=== PATIENT | male | born 1935 | race Caucasian/White ===

== ENCOUNTER 2017-01-05 01:05 | Inpatient (IN) | payer OTHER ==
--- NOTE | 2017-01-05 01:36 | DR.COUGH ---
HPI - Time Seen Time seen: 01:25 - PCP Primary Care Physician: BRITTNEY - HPI Comment HPI Comment: Patient presented to the ED this AM because he is spitting up blood when he coughs. He states that he has not smoked in 50 years. He has a history of COPD. He was seen by his primary care physician earlier today. - Complaint Chief Complaint:: COUGHING UP BLOOD - Source History Provided: Patient, Family Member - Mode of Arrival Mode of Arrival: EMS - Timing Onset of Chief Complaint: 01/05/17 PMH - PMH Past Medical History: Yes Past Medical History: Angina, Arthritis, CHF, COPD, Coronary Artery Disease, Dyslipidemia, Hypertension, Sleep Apnea Past Surgical History: Yes Surgical History: Abdominal Surgery, Angioplasty/Stents, CABG/Valve Surgery, Cholecystectomy, Other Past Surgical History Comment: PACEMAKER, HERNIA REPAIR, PROSTATE SURGERY - Family History History of Family Medical Conditions: Yes Family Medical History: PR, Sudden Cardiac , Hypertension - Social History Does patient currently use any type of tobacco product: No Have you used tobacco products in the last 12 months: No Type of Tobacco Use: None Does any household member use tobacco: No Alcohol Use: None Do you use any recreational Drugs:: No Lives With: Spouse Lives Where: Home - infectious screening In the last 2 months have you had wt loss of >10#?: NO Have you had fever, night sweats or hemotysis?: No Have you traveled outside the country in the last 6 months?: No Isolation: Standard ROS - Review of Systems Constitutional: No Symptoms Reported, Chills Eyes: No Symptoms Reported ENTM: No Symptoms Reported Respiratoy: See HPI, Hemoptysis Cardiovascular: No Symptoms Reported Gastrointestinal/Abdominal: No Symptoms Reported Genitourinary: No Symptoms Reported Neurological: No Symptoms Reported Musculoskeletal: No Symptoms Reported Integumentary: No Symptoms Reported Hematologic/Lymphatic: No Symptoms Reported Endocrine: No Symptoms Reported Psychiatric: No Symptoms Reported All Other Systems: Reviewed and Negative PE - Vitals Vitals: Temperature 102.7 F Pulse Rate 88 Respiratory Rate 22 Blood Pressure [Left Arm] 131/69 Blood Pressure 152/67 O2 Sat by Pulse Oximetry 93 - General Limitations: No Limitations General Appearance: Alert, In No Apparent Distress - Head Head Exam: Normal Inspection, Atraumatic - Eyes Eye exam: Normal Appearance, PERRL, EOMI - ENT ENT Exam: Normal Exam External Ear Exam: Normal External Inspection TM/Canal Exam: Bilateral Normal Nose Exam: Normal Nose Exam Nasal Speculum Exam: Bilateral Normal Mouth Exam: Normal Inspection Teeth Exam: Normal Inspection, Dental Caries - Neck Neck Exam: Normal Inspection - Chest Chest Inspection: Normal Inspection - Respiratory Respiratory Exam: Normal Lung Sounds Bilat Respiratory Exam: Bilateral Wheezing, Bilateral Decreased Breath Sounds - Cardiovascular Cardiovascular Exam: Regular Rate, Normal Rhythm - Abdominal Exam Abdominal Exam: Normal Inspection Abdominal Tenderness: negative: RUQ, RLQ, LUQ, LLQ, Epigastrium, Suprapubic, Diffuse, Mild, Moderate, Severe, Other - Extremities Extremities Exam: Normal Inspection - Back Back Exam: Normal Inspection - Neurologic Neurological Exam: Alert, Oriented X3, CN II-XII Intact - Psychiatric Psychiatric Exam: Normal Affect - Skin Skin Exam: Warm, Dry Course - Reevaluation 1st: Improved - Consultation Called: 03:05 (Admit for further evaluation and treatment) ROR - Labs Reviewed Result Diagrams: 01/05/17 01:30 01/05/17 01:30 Laboratory: 01/05/17 02:00 Sputum - Expectorated Sputum - Final WBC 22.2 X10^3/uL (3.6-10.0) H* 01/05/17 01:30 RBC 4.88 X10^6/uL (4.7-6.0) 01/05/17 01:30 Hgb 14.8 g/dL (13.5-18.0) 01/05/17 01:30 Hct 44.8 % (42.0-54.0) 01/05/17 01:30 MCV 91.8 fL (80.0-100.0) 01/05/17 01:30 MCH 30.3 pg (27.0-34.0) 01/05/17 01:30 MCHC 33.0 g/dL (33.0-35.0) 01/05/17 01:30 RDW 14.4 % (11.6-16.5) 01/05/17 01:30 Plt Count 140 X10^3/uL (150.0-450.0) L 01/05/17 01:30 Plt Count Comment Adequate (ADEQUATE) 01/05/17 01:30 MPV 10.7 fL (7.4-11.0) 01/05/17 01:30 Neut % 91.5 % (42.0-75.0) H 01/05/17 01:30 Lymph % 1.0 % (21.0-51.0) L 01/05/17 01:30 [place] % 7.5 % (0.0-13.0) 01/05/17 01:30 Eos % 0.0 % (0.9-2.9) L 01/05/17 01:30 Baso % 0 % (0.2-1.0) L 01/05/17 01:30 Neut # 20.3 x10^3/uL (2.2-4.8) H 01/05/17 01:30 Lymph # 0.2 X10^3/uL (1.3-2.9) L 01/05/17 01:30 [place] # 1.7 x10^3/uL (0.3-0.8) H 01/05/17 01:30 Eos # 0.0 x10^3/uL (0.0-0.2) 01/05/17 01:30 Baso # 0.0 X10^3/uL (0.0-0.1) 01/05/17 01:30 Absolute Nucleated RBC 0.0 /100WBC 01/05/17 01:30 Total Counted 100 01/05/17 01:30 Neutrophils % (Manual) 87 % (39-76) H 01/05/17 01:30 Band Neutrophils % 6 % (0-10) 01/05/17 01:30 Lymphocytes % (Manual) 2 % (13-43) L 01/05/17 01:30 Monocytes % (Manual) 5 % (4-9) 01/05/17 01:30 Plt Morphology Comment Normal (NORMAL) 01/05/17 01:30 RBC Morphology Normal (NORMAL) 01/05/17 01:30 INR Target Range - 01/05/17 01:30 INR 1.61 (0.8-1.3) H 01/05/17 01:30 PTT 31.5 SECONDS (22.9-36.5) 01/05/17 01:30 PTT Comment - 01/05/17 01:30 D-Dimer 355 ng/mL (0-400) 01/05/17 01:30 Sodium 146 mmol/L (136-145) H 01/05/17 01:30 Corrected Sodium 147 mmol/L (136-145) H 01/05/17 01:30 Potassium 3.5 mmol/L (3.5-5.1) 01/05/17 01:30 Chloride 110 mmol/L (98-107) H 01/05/17 01:30 Carbon Dioxide 26.5 mmol/L (21-32) 01/05/17 01:30 BUN 37 mg/dL (7-18) H 01/05/17 01:30 Creatinine 1.44 mg/dL (0.70-1.30) H 01/05/17 01:30 Est GFR (MDRD) Af Amer > 60 (>60) 01/05/17 01:30 Est GFR (MDRD) Non-Af 50 (>60) L 01/05/17 01:30 Glucose 128 mg/dL (65-99) H 01/05/17 01:30 Calcium 8.8 mg/dL (8.5-10.1) 01/05/17 01:30 Corrected Calcium TNP 01/05/17 01:30 Total Bilirubin 0.70 mg/dL (0.2-1.0) 01/05/17 01:30 AST 77 Units/L (15-37) H 01/05/17 01:30 ALT 77 Units/L (12-78) 01/05/17 01:30 Alkaline Phosphatase 121 Units/L (46-116) H 01/05/17 01:30 Total Protein 6.9 g/dL (6.4-8.2) 01/05/17 01:30 Albumin 3.4 g/dL (3.4-5.0) 01/05/17 01:30 Globulin 3.5 g/dL (2.5-4.5) 01/05/17 01:30 Albumin/Globulin Ratio 1.0 Ratio (1.1-2.1) L 01/05/17 01:30 Specimen Type Clean catch urine 01/05/17 01:48 Urine Color Yellow (YELLOW) 01/05/17 01:48 Urine Appearance Hazy (CLEAR) 01/05/17 01:48 Urine pH 5.0 (5.0 - 8.0) 01/05/17 01:48 Ur Specific [place] 1.025 (1.000-1.030) 01/05/17 01:48 Urine Protein 2+ (NEGATIVE) 01/05/17 01:48 Urine Glucose (UA) Negative (NEGATIVE) 01/05/17 01:48 Urine Ketones Negative (NEGATIVE) 01/05/17 01:48 Urine Occult Blood 2+ (NEGATIVE) 01/05/17 01:48 Urine Nitrite Negative (NEGATIVE) 01/05/17 01:48 Urine Bilirubin 1+ (NEGATIVE) 01/05/17 01:48 Urine Urobilinogen 2+ (NORMAL) 01/05/17 01:48 Ur Leukocyte Esterase 1+ (NEGATIVE) 01/05/17 01:48 Urine RBC 0-3 /HPF (NEGATIVE) 01/05/17 01:48 Urine WBC 5-10 /HPF (NEGATIVE) 01/05/17 01:48 Ur Squamous Epith Cells Rare /HPF (NEGATIVE) 01/05/17 01:48 Urine Bacteria 1+ /HPF (NEGATIVE) 01/05/17 01:48 Urine Mucus Few /HPF (NEGATIVE) 01/05/17 01:48 Ur Culture Indicated? Yes/culture set up 01/05/17 01:48 - XRAY XRAY Interpreted by: Radiologist (Chronic lung parenchymal changes are present bilaterally. The lung volumes are increased and there is flattening of the hemidiaphragms. There is consolidation throughout the medial aspect of the right lower lobe. The cardiac silhouette is mildly enlarged. Sternotomy wires and left sided pacemaker are present. The mediastinum is normal. The regional skeleton is intact. No evidence of a pleural effusion. Impression: Chronic lung parenchymal changes are seen bilaterally and the lung volumes are increased. consistent with COPD. Findings consistend with right lower lobe pneumonia.) - Diagnosis Discharge Problem: Hemoptysis COPD (chronic obstructive pulmonary disease) Qualifiers: COPD type: COPD with acute exacerbation Qualified Code(s): J44.1 - Chronic obstructive pulmonary disease with (acute) exacerbation - Discharge Plan Condition: Stable - Follow ups/Referrals Follow ups/Referrals: WINNIE MOORE [Primary Care Provider] - 3 days - Instructions
[2017-01-05] MEDS ORDERED: DUONEB 0.5 MG/3 MG NEB ONE (01:49)
[2017-01-05] MEDS ORDERED: DUONEB 0.5 MG/3 MG ONE (01:53)
[2017-01-05 01:54] LABS: MEAN CORPUSCULAR HEMOGLOBIN 30.3 pg (27.0-34.0); MONOCYTES # (AUTO) 1.7 x10^3/uL (0.3-0.8)
[2017-01-05 01:58] LABS: BASOPHILS % (AUTO) 0 % (0.2-1.0); HEMATOCRIT 44.8 % (42.0-54.0); HEMOGLOBIN 14.8 g/dL (13.5-18.0); LYMPHOCYTES # (AUTO) 0.2 X10^3/uL (1.3-2.9); MEAN CORPUSCULAR VOLUME 91.8 fL (80.0-100.0); MEAN PLATELET VOLUME 10.7 fL (7.4-11.0); MONOCYTES % (AUTO) 7.5 % (0.0-13.0); NEUTROPHILS # (AUTO) 20.3 x10^3/uL (2.2-4.8); NEUTROPHILS % (AUTO) 91.5 % (42.0-75.0); PLATELET COUNT 140 X10^3/uL (150.0-450.0); RED BLOOD COUNT 4.88 X10^6/uL (4.7-6.0); RED CELL DISTRIBUTION WIDTH 14.4 % (11.6-16.5)
--- NOTE | 2017-01-05 02:00 | RAD ---
EXAM: Chest X-ray INDICATION: Cough COMPARISION: Prior exam from September 15, 2014 TECHNIQUE: PA and Lat, 2 view FINDINGS: Chronic lung parenchymal changes are present bilaterally. The lung volumes are increased, and there is flattening of the hemidiaphragms . There is consolidation throughout the medial aspect of the rig ht lower lobe. The cardiac silhouette is mildly enlarged. Sternotomy wires and left-sided pacemaker are present. The mediastinum is normal. The regional skeleton is intact. No evidence of a pleural effusion. IMPRESSION: Chronic lung parenchymal changes are seen bilaterally and the lung volumes are increased, consistent with COPD. Findings consistent with right lower lobe pneumonia. Reported By:
[2017-01-05 02:01] LABS: ALANINE AMINOTRANSFERASE 77 Units/L (12-78); ALBUMIN 3.4 g/dL (3.4-5.0); ALKALINE PHOSPHATASE 121 Units/L (46-116); ASPARTATE AMINO TRANSFERASE 77 Units/L (15-37); BLOOD UREA NITROGEN 37 mg/dL (7-18); CALCIUM 8.8 mg/dL (8.5-10.1); CARBON DIOXIDE 26.5 mmol/L (21-32); CHLORIDE 110 mmol/L (98-107); COR NA(FOR HYPERGLY) 147 mmol/L (136-145); CREATININE 1.44 mg/dL (0.70-1.30); GLUCOSE 128 mg/dL (65-99); SODIUM 146 mmol/L (136-145); TOTAL PROTEIN 6.9 g/dL (6.4-8.2); WHITE BLOOD COUNT 22.2 X10^3/uL (3.6-10.0); eGFR BLACK RACES > 60 (>60); eGFR NON BLACK RACES 50 (>60)
[2017-01-05 02:09] LABS: BAND NEUTROPHILS % 6 % (0-10); PLATELET MORPHOLOGY COMMENT NORMAL (NORMAL)
[2017-01-05 02:17] LABS: BILIRUBIN,URINE 1+ (NEGATIVE); BLOOD/HEMOGLOBIN,URINE 2+ (NEGATIVE); GLUCOSE, URINE NEGATIVE (NEGATIVE); KETONES,URINE NEGATIVE (NEGATIVE); LEUKOCYTE ESTERASE ,URINE 1+ (NEGATIVE); NITRITES,URINE NEGATIVE (NEGATIVE); PROTEIN,URINE 2+ (NEGATIVE); UROBILINOGEN,URINE 2+ (NORMAL)
[2017-01-05 02:34] LABS: APPEARANCE,URINE HAZY (CLEAR); BACTERIA,URINE 1+ /HPF (NEGATIVE); COLOR,URINE YELLOW (YELLOW); MUCUS,URINE FEW /HPF (NEGATIVE); RBC,URINE 0-3 /HPF (NEGATIVE); SQUAMOUS EPITHELIAL CELL,UR RARE /HPF (NEGATIVE)
[2017-01-05] MEDS ORDERED: GENTAMICIN INJ 80 MG in NS 100 ML IV 100 ML IV ONE (03:38)
[2017-01-05] MEDS ORDERED: ROCEPHIN VIAL 1 GM ONE (03:42)
[2017-01-05] MEDS ORDERED: NS 50 ML IV + SPIKE MINIBAG* 0 ML IV ONE (03:42)
[2017-01-05] MEDS ORDERED: NS 1/2 1000 ML IV 1,000 ML IV ONE ×2 (03:42→16:47)
[2017-01-05] MEDS: ROCEPHIN VIAL 1 GM 1 GM in NS 50 ML IV + SPIKE MINIBAG* 50 ML IV SCH ×2 (03:52→09:04)
[2017-01-05] MEDS: NS 1/2 1000 ML IV 1,000 ML IV SCH ×2 (04:03→17:01)
[2017-01-05] MEDS ORDERED: GENTAMICIN INJ ONE (04:17)
[2017-01-05] MEDS ORDERED: NS 100 ML IV 100 ML IV ONE (04:17)
[2017-01-05] MEDS: DUONEB 0.5 MG/3 MG NEB SCH ×5 (05:02→20:36)
[2017-01-05 05:14] VITALS: BMI 25.8
[2017-01-05] MEDS: VIBRAMYCIN 100 MG in NS 100 ML IV + SPIKE MINIBAG* 100 ML IV SCH ×2 (09:49→20:27)
[2017-01-05] MEDS: ROBITUSSIN DM PO SCH ×4 (09:50→20:28)
[2017-01-06] MEDS: DUONEB 0.5 MG/3 MG NEB SCH ×6 (00:59→20:27)
[2017-01-06 05:37] LABS: BASOPHILS # (AUTO) 0.1 X10^3/uL (0.0-0.1); BASOPHILS % (AUTO) 0.3 % (0.2-1.0); EOSINOPHILS % (AUTO) 0.1 % (0.9-2.9); HEMATOCRIT 38.6 % (42.0-54.0); HEMOGLOBIN 12.6 g/dL (13.5-18.0); LYMPHOCYTES # (AUTO) 1.1 X10^3/uL (1.3-2.9); LYMPHOCYTES % (AUTO) 6.4 % (21.0-51.0); MEAN CORPUSCULAR HEMOGLOBIN 30.3 pg (27.0-34.0); MEAN CORPUSCULAR HGB CONC 32.8 g/dL (33.0-35.0); MEAN CORPUSCULAR VOLUME 92.4 fL (80.0-100.0); MEAN PLATELET VOLUME 11.2 fL (7.4-11.0); MONOCYTES # (AUTO) 1.9 x10^3/uL (0.3-0.8); MONOCYTES % (AUTO) 10.9 % (0.0-13.0); NEUTROPHILS # (AUTO) 14.4 x10^3/uL (2.2-4.8); NEUTROPHILS % (AUTO) 82.3 % (42.0-75.0); PLATELET COUNT 105 X10^3/uL (150.0-450.0); RED BLOOD COUNT 4.17 X10^6/uL (4.7-6.0); RED CELL DISTRIBUTION WIDTH 14.6 % (11.6-16.5); WHITE BLOOD COUNT 17.5 X10^3/uL (3.6-10.0)
[2017-01-06 05:46] LABS: ALANINE AMINOTRANSFERASE 66 Units/L (12-78); ALBUMIN 2.7 g/dL (3.4-5.0); ALKALINE PHOSPHATASE 86 Units/L (46-116); ASPARTATE AMINO TRANSFERASE 59 Units/L (15-37); BLOOD UREA NITROGEN 26 mg/dL (7-18); CALCIUM 8.2 mg/dL (8.5-10.1); CARBON DIOXIDE 25.7 mmol/L (21-32); CHLORIDE 107 mmol/L (98-107); COR CA(FOR HYPOALB) 9.2 mg/dL (8.5-10.1); COR NA(FOR HYPERGLY) 142 mmol/L (136-145); CREATININE 1.16 mg/dL (0.70-1.30); GLUCOSE 131 mg/dL (65-99); SODIUM 141 mmol/L (136-145); TOTAL PROTEIN 5.9 g/dL (6.4-8.2); eGFR BLACK RACES > 60 (>60); eGFR NON BLACK RACES > 60 (>60)
[2017-01-06] MEDS ORDERED: NS 1/2 1000 ML IV 1,000 ML IV ONE ×2 (06:49→15:40)
[2017-01-06] MEDS: VIBRAMYCIN 100 MG in NS 100 ML IV + SPIKE MINIBAG* 100 ML IV SCH ×2 (09:05→21:22)
[2017-01-06] MEDS: ROBITUSSIN DM PO SCH ×4 (09:05→21:22)
[2017-01-06] MEDS: ROCEPHIN VIAL 1 GM 1 GM in NS 50 ML IV + SPIKE MINIBAG* 50 ML IV SCH (09:05)
[2017-01-06] MEDS: ZOFRAN INJ 4 MG VIAL IVP PRN (12:00)
[2017-01-06] MEDS ORDERED: [UNRECOGNIZED DRUG - OTHER] PO SCH (12:30)
[2017-01-06] MEDS: ELIQUIS PO SCH (15:44)
[2017-01-06] MEDS: LOPRESSOR TAB 25 MG PO SCH ×2 (15:45→21:22)
[2017-01-06] MEDS: CALAN SR 180 MG PO SCH (15:46)
[2017-01-06] MEDS: NS 1/2 1000 ML IV 1,000 ML IV SCH ×2 (15:47→21:27)
[2017-01-06] MEDS: LANOXIN PO SCH (16:43)
[2017-01-06] MEDS: LOTENSIN TAB 10 MG PO SCH (21:22)
[2017-01-06] MEDS: ZOCOR TAB 10 MG PO SCH (21:22)
[2017-01-07] MEDS: TUSSIONEX PENNKINETIC SUSP PO PRN ×2 (00:41→21:48)
[2017-01-07] MEDS: DUONEB 0.5 MG/3 MG NEB SCH ×6 (01:32→20:52)
[2017-01-07] MEDS: VIBRAMYCIN 100 MG in NS 100 ML IV + SPIKE MINIBAG* 100 ML IV SCH ×2 (08:53→21:48)
[2017-01-07] MEDS: ROCEPHIN VIAL 1 GM 1 GM in NS 50 ML IV + SPIKE MINIBAG* 50 ML IV SCH (08:54)
[2017-01-07] MEDS: LOPRESSOR TAB 25 MG PO SCH ×2 (08:55→21:47)
[2017-01-07] MEDS: ROBITUSSIN DM PO SCH ×4 (08:55→21:48)
[2017-01-07] MEDS: LANOXIN PO SCH (08:55)
[2017-01-07] MEDS: CALAN SR 180 MG PO SCH (08:58)
[2017-01-07] MEDS: ELIQUIS PO SCH (08:58)
[2017-01-07] MEDS: LOTENSIN TAB 10 MG PO SCH ×2 (08:58→21:47)
[2017-01-07] MEDS ORDERED: NS 100 ML IV 100 ML IV ONE (14:24)
[2017-01-07] MEDS ORDERED: NS 1/2 1000 ML IV 1,000 ML IV ONE (15:22)
[2017-01-07] MEDS: NS 1/2 1000 ML IV 1,000 ML IV SCH (15:26)
--- NOTE | 2017-01-07 15:47 | CT ---
History: Shortness of breath and cough and hemoptysis Study: CT chest with IV contrast. Sagittal and coronal reformations were provided. Findings: There are small bilateral pleural effusions. There is a small patchy infiltrate in the rig ht middle lobe and patchy infiltrates in the lower lobes, left slightly more prominent than the righ t. There is a mild infiltrate in the lingula is well. There are prominent middle mediastinal lymph n odes. No pulmonary embolus is suggested. The visualized upper abdomen is unremarkable status post ch olecystectomy. Impression: Bilateral lower lobe and middle and lingular patchy pneumonitis with small pleural effusions Reported By:
[2017-01-07] MEDS: ZOCOR TAB 10 MG PO SCH (21:48)
[2017-01-08] MEDS: DUONEB 0.5 MG/3 MG NEB SCH ×7 (00:54→20:32)
[2017-01-08] MEDS: NS 1/2 1000 ML IV 1,000 ML IV SCH ×3 (02:15→17:10)
[2017-01-08] MEDS ORDERED: NS 1/2 1000 ML IV 1,000 ML IV ONE ×2 (03:30→13:36)
[2017-01-08 05:26] LABS: BASOPHILS # (AUTO) 0.1 X10^3/uL (0.0-0.1); BASOPHILS % (AUTO) 0.5 % (0.2-1.0); EOSINOPHILS % (AUTO) 0.3 % (0.9-2.9); HEMATOCRIT 37.7 % (42.0-54.0); HEMOGLOBIN 12.4 g/dL (13.5-18.0); LYMPHOCYTES # (AUTO) 0.8 X10^3/uL (1.3-2.9); LYMPHOCYTES % (AUTO) 5.4 % (21.0-51.0); MEAN CORPUSCULAR HEMOGLOBIN 30.5 pg (27.0-34.0); MEAN CORPUSCULAR HGB CONC 32.9 g/dL (33.0-35.0); MEAN CORPUSCULAR VOLUME 92.6 fL (80.0-100.0); MEAN PLATELET VOLUME 11.4 fL (7.4-11.0); MONOCYTES # (AUTO) 1.9 x10^3/uL (0.3-0.8); MONOCYTES % (AUTO) 13.4 % (0.0-13.0); NEUTROPHILS # (AUTO) 11.2 x10^3/uL (2.2-4.8); NEUTROPHILS % (AUTO) 80.4 % (42.0-75.0); PLATELET COUNT 115 X10^3/uL (150.0-450.0); RED BLOOD COUNT 4.07 X10^6/uL (4.7-6.0); RED CELL DISTRIBUTION WIDTH 14.7 % (11.6-16.5)
[2017-01-08 05:37] LABS: ALANINE AMINOTRANSFERASE 139 Units/L (12-78); ALBUMIN 2.5 g/dL (3.4-5.0); ALKALINE PHOSPHATASE 121 Units/L (46-116); ASPARTATE AMINO TRANSFERASE 98 Units/L (15-37); BLOOD UREA NITROGEN 31 mg/dL (7-18); CALCIUM 8.3 mg/dL (8.5-10.1); CARBON DIOXIDE 25.4 mmol/L (21-32); CHLORIDE 105 mmol/L (98-107); COR CA(FOR HYPOALB) 9.5 mg/dL (8.5-10.1); COR NA(FOR HYPERGLY) 140 mmol/L (136-145); CREATININE 1.44 mg/dL (0.70-1.30); DIGOXIN 0.98 ng/mL (0.9-2); GLUCOSE 120 mg/dL (65-99); SODIUM 140 mmol/L (136-145); TOTAL PROTEIN 6.1 g/dL (6.4-8.2); eGFR BLACK RACES > 60 (>60); eGFR NON BLACK RACES 50 (>60)
--- NOTE | 2017-01-08 08:59 | PCM.PROG ---
Progress Note - Progress Note for Day of Date: 01/07/17 - Subjective Subjective: C/C/C, COUGHING UP BLOOD. 81WM ADMITTED ON SATURDAY NIGHT WITH DIAGNOSIS OF RIGHT LL PNEUMONIA. PLAN TO CT CHEST THIS AM, CONTINUE IV HYDRATION AND RESP THERAPY, REPEAT AM LABS - Past Medical Family Social History Past Med/Fam/Surg Hx: No changes since H&P Allergies: Allergies No Known Drug Allergy Allergy (Unverified 07/28/15 17:55) - Review of Systems ROS: No change since H&P - Vital Signs and I&O's Vital Signs: Temperature 97.2 F Pulse Rate [Right Brachial] 70 Pulse Rate [Left Radial] 74 Pulse Rate 78 Respiratory Rate 20 Blood Pressure [Right Arm] 124/59 Blood Pressure [Left Arm] 148/66 Blood Pressure 152/67 O2 Sat by Pulse Oximetry 98 Intake and Output: Intake & Output 01/05/17 01/06/17 01/07/17 01/08/17 11:59 11:59 11:59 11:59 Intake Total 620 2350 3218 2650 Output Total 350 225 875 Balance 620 3794 2999 1779 - Physical Exam Oriented: Normal Eyes: Normal Ear: Normal Nose: Normal Throat: Normal Respiratory: Wheezes, Rhonchi Cardiovascular: Normal. negative: Edema : Normal Auscultation: Bowel Sounds: Normal Palpation: Normal Tenderness: Normal Skin: Normal Musculoskeletal: Back:Lumbar Psychiatric: Normal Mood Description: Calm Speech Pattern: Clear, Appropriate - Laboratory and Diagnostics Result Diagrams: 01/08/17 04:10 01/08/17 04:10 Labs: 01/05/17 03:39 Blood Blood Culture - Preliminary Laboratory WBC 14.0 X10^3/uL (3.6-10.0) H 01/08/17 04:10 RBC 4.07 X10^6/uL (4.7-6.0) L 01/08/17 04:10 Hgb 12.4 g/dL (13.5-18.0) L 01/08/17 04:10 Hct 37.7 % (42.0-54.0) L 01/08/17 04:10 MCV 92.6 fL (80.0-100.0) 01/08/17 04:10 MCH 30.5 pg (27.0-34.0) 01/08/17 04:10 MCHC 32.9 g/dL (33.0-35.0) L 01/08/17 04:10 RDW 14.7 % (11.6-16.5) 01/08/17 04:10 Plt Count 115 X10^3/uL (150.0-450.0) L 01/08/17 04:10 Plt Count Comment Adequate (ADEQUATE) 01/05/17 01:30 MPV 11.4 fL (7.4-11.0) H 01/08/17 04:10 Neut % 80.4 % (42.0-75.0) H 01/08/17 04:10 Lymph % 5.4 % (21.0-51.0) L 01/08/17 04:10 [place] % 13.4 % (0.0-13.0) H 01/08/17 04:10 Eos % 0.3 % (0.9-2.9) L 01/08/17 04:10 Baso % 0.5 % (0.2-1.0) 01/08/17 04:10 Neut # 11.2 x10^3/uL (2.2-4.8) H 01/08/17 04:10 Lymph # 0.8 X10^3/uL (1.3-2.9) L 01/08/17 04:10 [place] # 1.9 x10^3/uL (0.3-0.8) H 01/08/17 04:10 Eos # 0.0 x10^3/uL (0.0-0.2) 01/08/17 04:10 Baso # 0.1 X10^3/uL (0.0-0.1) 01/08/17 04:10 Absolute Nucleated RBC 0.0 /100WBC 01/08/17 04:10 Total Counted 100 01/05/17 01:30 Neutrophils % (Manual) 87 % (39-76) H 01/05/17 01:30 Band Neutrophils % 6 % (0-10) 01/05/17 01:30 Lymphocytes % (Manual) 2 % (13-43) L 01/05/17 01:30 Monocytes % (Manual) 5 % (4-9) 01/05/17 01:30 Plt Morphology Comment Normal (NORMAL) 01/05/17 01:30 RBC Morphology Normal (NORMAL) 01/05/17 01:30 INR Target Range - 01/05/17 01:30 INR 1.61 (0.8-1.3) H 01/05/17 01:30 PTT 31.5 SECONDS (22.9-36.5) 01/05/17 01:30 PTT Comment - 01/05/17 01:30 D-Dimer 355 ng/mL (0-400) 01/05/17 01:30 Sodium 140 mmol/L (136-145) 01/08/17 04:10 Corrected Sodium 140 mmol/L (136-145) 01/08/17 04:10 Potassium 4.3 mmol/L (3.5-5.1) 01/08/17 04:10 Chloride 105 mmol/L (98-107) 01/08/17 04:10 Carbon Dioxide 25.4 mmol/L (21-32) 01/08/17 04:10 BUN 31 mg/dL (7-18) H 01/08/17 04:10 Creatinine 1.44 mg/dL (0.70-1.30) H 01/08/17 04:10 Est GFR (MDRD) Af Amer > 60 (>60) 01/08/17 04:10 Est GFR (MDRD) Non-Af 50 (>60) L 01/08/17 04:10 Glucose 120 mg/dL (65-99) H 01/08/17 04:10 Calcium 8.3 mg/dL (8.5-10.1) L 01/08/17 04:10 Corrected Calcium 9.5 mg/dL (8.5-10.1) 01/08/17 04:10 Total Bilirubin 0.80 mg/dL (0.2-1.0) 01/08/17 04:10 AST 98 Units/L (15-37) H 01/08/17 04:10 ALT 139 Units/L (12-78) H 01/08/17 04:10 Alkaline Phosphatase 121 Units/L (46-116) H 01/08/17 04:10 Total Protein 6.1 g/dL (6.4-8.2) L 01/08/17 04:10 Albumin 2.5 g/dL (3.4-5.0) L 01/08/17 04:10 Globulin 3.6 g/dL (2.5-4.5) 01/08/17 04:10 Albumin/Globulin Ratio 0.7 Ratio (1.1-2.1) L 01/08/17 04:10 Specimen Type Clean catch urine 01/05/17 01:48 Urine Color Yellow (YELLOW) 01/05/17 01:48 Urine Appearance Hazy (CLEAR) 01/05/17 01:48 Urine pH 5.0 (5.0 - 8.0) 01/05/17 01:48 Ur Specific [place] 1.025 (1.000-1.030) 01/05/17 01:48 Urine Protein 2+ (NEGATIVE) 01/05/17 01:48 Urine Glucose (UA) Negative (NEGATIVE) 01/05/17 01:48 Urine Ketones Negative (NEGATIVE) 01/05/17 01:48 Urine Occult Blood 2+ (NEGATIVE) 01/05/17 01:48 Urine Nitrite Negative (NEGATIVE) 01/05/17 01:48 Urine Bilirubin 1+ (NEGATIVE) 01/05/17 01:48 Urine Urobilinogen 2+ (NORMAL) 01/05/17 01:48 Ur Leukocyte Esterase 1+ (NEGATIVE) 01/05/17 01:48 Urine RBC 0-3 /HPF (NEGATIVE) 01/05/17 01:48 Urine WBC 5-10 /HPF (NEGATIVE) 01/05/17 01:48 Ur Squamous Epith Cells Rare /HPF (NEGATIVE) 01/05/17 01:48 Urine Bacteria 1+ /HPF (NEGATIVE) 01/05/17 01:48 Urine Mucus Few /HPF (NEGATIVE) 01/05/17 01:48 Ur Culture Indicated? Yes/culture set up 01/05/17 01:48 Digoxin 0.98 ng/mL (0.9-2) 01/08/17 04:10 - Plan (1) Pneumonia Status: Acute Qualifiers: Pneumonia type: P Aspiration pneumonia type: A Laterality: L Lung location: L Plan: CONTINUE IV ATBX,RESP THREAPY, PULMONARY TOILETING, INCREASE PO FLUIDS. PT (2) Hemoptysis Status: Acute Plan: CT CHEST THIS AM, SEE ABOVE (3) Atrial fibrillation Status: Chronic Qualifiers: Atrial fibrillation type: A Plan: CONTINUE HOME MEDS, BB, LASIX, ANTI-COAG THERAPY (4) CAD (coronary artery disease) Status: Chronic Qualifiers: Coronary Disease-Associated Artery/Lesion type: C [place] vs. transplanted heart: N Associated angina: A Plan: BP AND LIPID CONTROL (5) COPD (chronic obstructive pulmonary disease) Status: Chronic Qualifiers: COPD type: C Chronic bronchitis type: C Emphysema type: E Plan: RESP THERAPY (6) Hypertension Status: Chronic Qualifiers: Hypertension type: H
[2017-01-08] MEDS: LOTENSIN TAB 10 MG PO SCH ×2 (09:32→20:42)
[2017-01-08] MEDS: LANOXIN PO SCH (09:32)
[2017-01-08] MEDS: CALAN SR 180 MG PO SCH (09:33)
[2017-01-08] MEDS: ROBITUSSIN DM PO SCH ×4 (09:33→20:42)
[2017-01-08] MEDS: LOPRESSOR TAB 25 MG PO SCH ×2 (09:33→20:42)
[2017-01-08] MEDS: ROCEPHIN VIAL 1 GM 1 GM in NS 50 ML IV + SPIKE MINIBAG* 50 ML IV SCH (09:33)
[2017-01-08] MEDS: ELIQUIS PO SCH (09:33)
[2017-01-08] MEDS: VIBRAMYCIN 100 MG in NS 100 ML IV + SPIKE MINIBAG* 100 ML IV SCH ×2 (09:34→20:42)
[2017-01-08] MEDS: ZOFRAN INJ 4 MG VIAL IVP PRN (17:16)
[2017-01-08] MEDS: MILK OF MAGNESIA PO SCH (18:02)
[2017-01-08] MEDS: COLACE CAP 100 MG PO SCH (18:02)
--- NOTE | 2017-01-08 18:19 | PCM.PROG ---
Progress Note - Progress Note for Day of Date: 01/08/17 - Subjective Subjective: CONTINUES TO COUGH UP THICK YELLOW SPUTUM. 81WM ADMITTED ON [place] NIGHT WITH DIAGNOSIS OF RIGHT LL PNEUMONIA. CT CHEST REVEALED BILATERAL PNEUMONIA, CONTINUE IV HYDRATION AND RESP THERAPY, REPEAT AM LABS - Past Medical Family Social History Past Med/Fam/Surg Hx: No changes since H&P Allergies: Allergies No Known Drug Allergy Allergy (Unverified 07/28/15 17:55) - Review of Systems ROS: No change since H&P - Vital Signs and I&O's Vital Signs: Temperature 98.4 F Pulse Rate [Right Brachial] 70 Pulse Rate [Left Radial] 69 Pulse Rate 80 Respiratory Rate 20 Blood Pressure [Left Arm] 117/62 O2 Sat by Pulse Oximetry 96 Intake and Output: Intake & Output 01/06/17 01/07/17 01/08/17 01/09/17 11:59 11:59 11:59 11:59 Intake Total 1850 320 Output Total 475 125 Balance 1375 195 - Physical Exam Oriented: Normal Eyes: Normal Ear: Normal Nose: Normal Throat: Normal Respiratory: Wheezes, Rhonchi Cardiovascular: Normal. negative: Edema : Normal Auscultation: Bowel Sounds: Normal Tenderness: Normal Skin: Normal Musculoskeletal: Back:Lumbar Psychiatric: Normal Mood Description: Calm Speech Pattern: Clear, Appropriate - Laboratory and Diagnostics Result Diagrams: 01/08/17 04:10 01/08/17 04:10 Labs: Laboratory WBC 14.0 X10^3/uL (3.6-10.0) H 01/08/17 04:10 RBC 4.07 X10^6/uL (4.7-6.0) L 01/08/17 04:10 Hgb 12.4 g/dL (13.5-18.0) L 01/08/17 04:10 Hct 37.7 % (42.0-54.0) L 01/08/17 04:10 MCV 92.6 fL (80.0-100.0) 01/08/17 04:10 MCH 30.5 pg (27.0-34.0) 01/08/17 04:10 MCHC 32.9 g/dL (33.0-35.0) L 01/08/17 04:10 RDW 14.7 % (11.6-16.5) 01/08/17 04:10 Plt Count 115 X10^3/uL (150.0-450.0) L 01/08/17 04:10 Plt Count Comment Adequate (ADEQUATE) 01/05/17 01:30 MPV 11.4 fL (7.4-11.0) H 01/08/17 04:10 Neut % 80.4 % (42.0-75.0) H 01/08/17 04:10 Lymph % 5.4 % (21.0-51.0) L 01/08/17 04:10 [place] % 13.4 % (0.0-13.0) H 01/08/17 04:10 Eos % 0.3 % (0.9-2.9) L 01/08/17 04:10 Baso % 0.5 % (0.2-1.0) 01/08/17 04:10 Neut # 11.2 x10^3/uL (2.2-4.8) H 01/08/17 04:10 Lymph # 0.8 X10^3/uL (1.3-2.9) L 01/08/17 04:10 [place] # 1.9 x10^3/uL (0.3-0.8) H 01/08/17 04:10 Eos # 0.0 x10^3/uL (0.0-0.2) 01/08/17 04:10 Baso # 0.1 X10^3/uL (0.0-0.1) 01/08/17 04:10 Absolute Nucleated RBC 0.0 /100WBC 01/08/17 04:10 Total Counted 100 01/05/17 01:30 Neutrophils % (Manual) 87 % (39-76) H 01/05/17 01:30 Band Neutrophils % 6 % (0-10) 01/05/17 01:30 Lymphocytes % (Manual) 2 % (13-43) L 01/05/17 01:30 Monocytes % (Manual) 5 % (4-9) 01/05/17 01:30 Plt Morphology Comment Normal (NORMAL) 01/05/17 01:30 RBC Morphology Normal (NORMAL) 01/05/17 01:30 INR Target Range - 01/05/17 01:30 INR 1.61 (0.8-1.3) H 01/05/17 01:30 PTT 31.5 SECONDS (22.9-36.5) 01/05/17 01:30 PTT Comment - 01/05/17 01:30 D-Dimer 355 ng/mL (0-400) 01/05/17 01:30 Sodium 140 mmol/L (136-145) 01/08/17 04:10 Corrected Sodium 140 mmol/L (136-145) 01/08/17 04:10 Potassium 4.3 mmol/L (3.5-5.1) 01/08/17 04:10 Chloride 105 mmol/L (98-107) 01/08/17 04:10 Carbon Dioxide 25.4 mmol/L (21-32) 01/08/17 04:10 BUN 31 mg/dL (7-18) H 01/08/17 04:10 Creatinine 1.44 mg/dL (0.70-1.30) H 01/08/17 04:10 Est GFR (MDRD) Af Amer > 60 (>60) 01/08/17 04:10 Est GFR (MDRD) Non-Af 50 (>60) L 01/08/17 04:10 Glucose 120 mg/dL (65-99) H 01/08/17 04:10 Calcium 8.3 mg/dL (8.5-10.1) L 01/08/17 04:10 Corrected Calcium 9.5 mg/dL (8.5-10.1) 01/08/17 04:10 Total Bilirubin 0.80 mg/dL (0.2-1.0) 01/08/17 04:10 AST 98 Units/L (15-37) H 01/08/17 04:10 ALT 139 Units/L (12-78) H 01/08/17 04:10 Alkaline Phosphatase 121 Units/L (46-116) H 01/08/17 04:10 Total Protein 6.1 g/dL (6.4-8.2) L 01/08/17 04:10 Albumin 2.5 g/dL (3.4-5.0) L 01/08/17 04:10 Globulin 3.6 g/dL (2.5-4.5) 01/08/17 04:10 Albumin/Globulin Ratio 0.7 Ratio (1.1-2.1) L 01/08/17 04:10 Specimen Type Clean catch urine 01/05/17 01:48 Urine Color Yellow (YELLOW) 01/05/17 01:48 Urine Appearance Hazy (CLEAR) 01/05/17 01:48 Urine pH 5.0 (5.0 - 8.0) 01/05/17 01:48 Ur Specific [place] 1.025 (1.000-1.030) 01/05/17 01:48 Urine Protein 2+ (NEGATIVE) 01/05/17 01:48 Urine Glucose (UA) Negative (NEGATIVE) 01/05/17 01:48 Urine Ketones Negative (NEGATIVE) 01/05/17 01:48 Urine Occult Blood 2+ (NEGATIVE) 01/05/17 01:48 Urine Nitrite Negative (NEGATIVE) 01/05/17 01:48 Urine Bilirubin 1+ (NEGATIVE) 01/05/17 01:48 Urine Urobilinogen 2+ (NORMAL) 01/05/17 01:48 Ur Leukocyte Esterase 1+ (NEGATIVE) 01/05/17 01:48 Urine RBC 0-3 /HPF (NEGATIVE) 01/05/17 01:48 Urine WBC 5-10 /HPF (NEGATIVE) 01/05/17 01:48 Ur Squamous Epith Cells Rare /HPF (NEGATIVE) 01/05/17 01:48 Urine Bacteria 1+ /HPF (NEGATIVE) 01/05/17 01:48 Urine Mucus Few /HPF (NEGATIVE) 01/05/17 01:48 Ur Culture Indicated? Yes/culture set up 01/05/17 01:48 Digoxin 0.98 ng/mL (0.9-2) 01/08/17 04:10 - Plan (1) Pneumonia Status: Acute Qualifiers: Pneumonia type: P Aspiration pneumonia type: A Laterality: L Lung location: L Plan: CONTINUE IV ATBX,RESP THREAPY, PULMONARY TOILETING, INCREASE PO FLUIDS. PT (2) Hemoptysis Status: Acute Plan: CT CHEST REVEALED BILATERAL PNEUMONIA. CONTINUE CURRENT MEDS, REPEAT AM LABS (3) Atrial fibrillation Status: Chronic Qualifiers: Atrial fibrillation type: A Plan: CONTINUE HOME MEDS, BB, LASIX, ANTI-COAG THERAPY (4) CAD (coronary artery disease) Status: Chronic Qualifiers: Coronary Disease-Associated Artery/Lesion type: C [place] vs. transplanted heart: N Associated angina: A Plan: BP AND LIPID CONTROL (5) COPD (chronic obstructive pulmonary disease) Status: Chronic Qualifiers: COPD type: C Chronic bronchitis type: C Emphysema type: E Plan: RESP THERAPY (6) Hypertension Status: Chronic Qualifiers: Hypertension type: H
[2017-01-08] MEDS: ZOCOR TAB 10 MG PO SCH (20:42)
[2017-01-09] MEDS: DUONEB 0.5 MG/3 MG NEB SCH ×6 (01:23→20:20)
[2017-01-09] MEDS ORDERED: NS 1/2 1000 ML IV 1,000 ML IV ONE ×2 (02:26→20:51)
[2017-01-09] MEDS: NS 1/2 1000 ML IV 1,000 ML IV SCH ×3 (02:29→20:54)
[2017-01-09 05:42] LABS: BASOPHILS % (AUTO) 0.3 % (0.2-1.0); EOSINOPHILS # (AUTO) 0.1 x10^3/uL (0.0-0.2); EOSINOPHILS % (AUTO) 0.4 % (0.9-2.9); HEMATOCRIT 37.1 % (42.0-54.0); HEMOGLOBIN 12.3 g/dL (13.5-18.0); LYMPHOCYTES # (AUTO) 0.6 X10^3/uL (1.3-2.9); LYMPHOCYTES % (AUTO) 4.3 % (21.0-51.0); MEAN CORPUSCULAR HEMOGLOBIN 30.5 pg (27.0-34.0); MEAN CORPUSCULAR HGB CONC 33.2 g/dL (33.0-35.0); MEAN PLATELET VOLUME 10.8 fL (7.4-11.0); MONOCYTES # (AUTO) 1.8 x10^3/uL (0.3-0.8); MONOCYTES % (AUTO) 12.4 % (0.0-13.0); NEUTROPHILS # (AUTO) 12.2 x10^3/uL (2.2-4.8); NEUTROPHILS % (AUTO) 82.6 % (42.0-75.0); PLATELET COUNT 132 X10^3/uL (150.0-450.0); RED BLOOD COUNT 4.04 X10^6/uL (4.7-6.0); RED CELL DISTRIBUTION WIDTH 14.4 % (11.6-16.5); WHITE BLOOD COUNT 14.7 X10^3/uL (3.6-10.0)
[2017-01-09 05:53] LABS: ALANINE AMINOTRANSFERASE 123 Units/L (12-78); ALBUMIN 2.4 g/dL (3.4-5.0); ALKALINE PHOSPHATASE 118 Units/L (46-116); ASPARTATE AMINO TRANSFERASE 76 Units/L (15-37); BLOOD UREA NITROGEN 34 mg/dL (7-18); CALCIUM 8.1 mg/dL (8.5-10.1); CARBON DIOXIDE 26.1 mmol/L (21-32); CHLORIDE 104 mmol/L (98-107); COR CA(FOR HYPOALB) 9.4 mg/dL (8.5-10.1); COR NA(FOR HYPERGLY) 140 mmol/L (136-145); CREATININE 1.44 mg/dL (0.70-1.30); GLUCOSE 112 mg/dL (65-99); SODIUM 140 mmol/L (136-145); TOTAL PROTEIN 6.2 g/dL (6.4-8.2); eGFR BLACK RACES > 60 (>60); eGFR NON BLACK RACES 50 (>60)
[2017-01-09] MEDS: ZOFRAN INJ 4 MG VIAL IVP PRN (06:00)
--- NOTE | 2017-01-09 07:07 | RAD ---
HISTORY: Dehydration, congestive heart failure Study: Chest one view Comparison: January 05, 2017, CT chest January 07, 2017 Findings: There is a pacemaker present on the left. The patient is status post median sternotomy and CABG. The heart is enlarged. No congestive heart failure is noted. The lungs are hyperinflated consistent wit h COPD. There is a right basilar lung infiltrate present. There is increased density in the retrocar diac area left lower lobe likely due to infiltrate and pleural effusion. The lingular and right midd le lobe infiltrates visualized on CT are not well demonstrated on this examination. IMPRESSION: Cardiomegaly without congestive heart failure COPD Right basilar infiltrate unchanged Increased density left lower lobe unchanged and likely due to infiltrate and left pleural effusion Reported By:
[2017-01-09] MEDS: ROCEPHIN VIAL 1 GM 1 GM in NS 50 ML IV + SPIKE MINIBAG* 50 ML IV SCH (10:25)
[2017-01-09] MEDS: LOPRESSOR TAB 25 MG PO SCH ×2 (10:27→20:55)
[2017-01-09] MEDS: ROBITUSSIN DM PO SCH ×4 (10:27→20:55)
[2017-01-09] MEDS: COLACE CAP 100 MG PO SCH ×2 (10:27→20:54)
[2017-01-09] MEDS: CALAN SR 180 MG PO SCH (10:27)
[2017-01-09] MEDS: LANOXIN PO SCH (10:27)
[2017-01-09] MEDS: MILK OF MAGNESIA PO SCH ×2 (10:27→20:55)
[2017-01-09] MEDS: LOTENSIN TAB 10 MG PO SCH ×2 (10:29→20:54)
[2017-01-09] MEDS: ELIQUIS PO SCH (10:29)
[2017-01-09] MEDS: VIBRAMYCIN 100 MG in NS 100 ML IV + SPIKE MINIBAG* 100 ML IV SCH ×2 (10:29→20:55)
--- NOTE | 2017-01-09 18:19 | PCM.PROG ---
Progress Note - Progress Note for Day of Date: 01/09/17 - Subjective Subjective: CONTINUES TO COUGH UP THICK YELLOW SPUTUM, DIFFUSE WHEEZING. VERY ANXOUS LAST PM PER FAMILY MEMBER. 81WM ADMITTED ON SATURDAY NIGHT WITH DIAGNOSIS OF RIGHT LL PNEUMONIA. CT CHEST REVEALED BILATERAL PNEUMONIA, CONTINUE IV HYDRATION AND RESP THERAPY, REPEAT AM LABS - Past Medical Family Social History Past Med/Fam/Surg Hx: No changes since H&P Allergies: Allergies No Known Drug Allergy Allergy (Unverified 07/28/15 17:55) - Review of Systems ROS: No change since H&P - Vital Signs and I&O's Vital Signs: Temperature 98.0 F Pulse Rate [Right Brachial] 70 Pulse Rate [Left Radial] 70 Pulse Rate 70 Respiratory Rate 20 Blood Pressure [Left Arm] 121/60 O2 Sat by Pulse Oximetry 96 Intake and Output: Intake & Output 01/07/17 01/08/17 01/09/17 01/10/17 11:59 11:59 11:59 11:59 Intake Total 1850 1260 1740 Output Total 475 500 700 Balance 2242 368 6856 - Physical Exam Oriented: Normal Eyes: Normal Ear: Normal Nose: Normal Throat: Normal Respiratory: Wheezes, Rhonchi Cardiovascular: Normal. negative: Edema : Normal Auscultation: Bowel Sounds: Normal Tenderness: Normal Skin: Normal Musculoskeletal: Back:Lumbar Psychiatric: Normal Mood Description: Calm Speech Pattern: Clear, Appropriate - Laboratory and Diagnostics Result Diagrams: 01/09/17 03:30 01/09/17 03:30 Labs: Laboratory WBC 14.7 X10^3/uL (3.6-10.0) H 01/09/17 03:30 RBC 4.04 X10^6/uL (4.7-6.0) L 01/09/17 03:30 Hgb 12.3 g/dL (13.5-18.0) L 01/09/17 03:30 Hct 37.1 % (42.0-54.0) L 01/09/17 03:30 MCV 92.0 fL (80.0-100.0) 01/09/17 03:30 MCH 30.5 pg (27.0-34.0) 01/09/17 03:30 MCHC 33.2 g/dL (33.0-35.0) 01/09/17 03:30 RDW 14.4 % (11.6-16.5) 01/09/17 03:30 Plt Count 132 X10^3/uL (150.0-450.0) L 01/09/17 03:30 Plt Count Comment Adequate (ADEQUATE) 01/05/17 01:30 MPV 10.8 fL (7.4-11.0) 01/09/17 03:30 Neut % 82.6 % (42.0-75.0) H 01/09/17 03:30 Lymph % 4.3 % (21.0-51.0) L 01/09/17 03:30 [place] % 12.4 % (0.0-13.0) 01/09/17 03:30 Eos % 0.4 % (0.9-2.9) L 01/09/17 03:30 Baso % 0.3 % (0.2-1.0) 01/09/17 03:30 Neut # 12.2 x10^3/uL (2.2-4.8) H 01/09/17 03:30 Lymph # 0.6 X10^3/uL (1.3-2.9) L 01/09/17 03:30 [place] # 1.8 x10^3/uL (0.3-0.8) H 01/09/17 03:30 Eos # 0.1 x10^3/uL (0.0-0.2) 01/09/17 03:30 Baso # 0.0 X10^3/uL (0.0-0.1) 01/09/17 03:30 Absolute Nucleated RBC 0.0 /100WBC 01/09/17 03:30 Total Counted 100 01/05/17 01:30 Neutrophils % (Manual) 87 % (39-76) H 01/05/17 01:30 Band Neutrophils % 6 % (0-10) 01/05/17 01:30 Lymphocytes % (Manual) 2 % (13-43) L 01/05/17 01:30 Monocytes % (Manual) 5 % (4-9) 01/05/17 01:30 Plt Morphology Comment Normal (NORMAL) 01/05/17 01:30 RBC Morphology Normal (NORMAL) 01/05/17 01:30 INR Target Range - 01/05/17 01:30 INR 1.61 (0.8-1.3) H 01/05/17 01:30 PTT 31.5 SECONDS (22.9-36.5) 01/05/17 01:30 PTT Comment - 01/05/17 01:30 D-Dimer 355 ng/mL (0-400) 01/05/17 01:30 Sodium 140 mmol/L (136-145) 01/09/17 03:30 Corrected Sodium 140 mmol/L (136-145) 01/09/17 03:30 Potassium 4.3 mmol/L (3.5-5.1) 01/09/17 03:30 Chloride 104 mmol/L (98-107) 01/09/17 03:30 Carbon Dioxide 26.1 mmol/L (21-32) 01/09/17 03:30 BUN 34 mg/dL (7-18) H 01/09/17 03:30 Creatinine 1.44 mg/dL (0.70-1.30) H 01/09/17 03:30 Est GFR (MDRD) Af Amer > 60 (>60) 01/09/17 03:30 Est GFR (MDRD) Non-Af 50 (>60) L 01/09/17 03:30 Glucose 112 mg/dL (65-99) H 01/09/17 03:30 Calcium 8.1 mg/dL (8.5-10.1) L 01/09/17 03:30 Corrected Calcium 9.4 mg/dL (8.5-10.1) 01/09/17 03:30 Total Bilirubin 0.80 mg/dL (0.2-1.0) 01/09/17 03:30 AST 76 Units/L (15-37) H 01/09/17 03:30 ALT 123 Units/L (12-78) H 01/09/17 03:30 Alkaline Phosphatase 118 Units/L (46-116) H 01/09/17 03:30 Total Protein 6.2 g/dL (6.4-8.2) L 01/09/17 03:30 Albumin 2.4 g/dL (3.4-5.0) L 01/09/17 03:30 Globulin 3.8 g/dL (2.5-4.5) 01/09/17 03:30 Albumin/Globulin Ratio 0.6 Ratio (1.1-2.1) L 01/09/17 03:30 Specimen Type Clean catch urine 01/05/17 01:48 Urine Color Yellow (YELLOW) 01/05/17 01:48 Urine Appearance Hazy (CLEAR) 01/05/17 01:48 Urine pH 5.0 (5.0 - 8.0) 01/05/17 01:48 Ur Specific [place] 1.025 (1.000-1.030) 01/05/17 01:48 Urine Protein 2+ (NEGATIVE) 01/05/17 01:48 Urine Glucose (UA) Negative (NEGATIVE) 01/05/17 01:48 Urine Ketones Negative (NEGATIVE) 01/05/17 01:48 Urine Occult Blood 2+ (NEGATIVE) 01/05/17 01:48 Urine Nitrite Negative (NEGATIVE) 01/05/17 01:48 Urine Bilirubin 1+ (NEGATIVE) 01/05/17 01:48 Urine Urobilinogen 2+ (NORMAL) 01/05/17 01:48 Ur Leukocyte Esterase 1+ (NEGATIVE) 01/05/17 01:48 Urine RBC 0-3 /HPF (NEGATIVE) 01/05/17 01:48 Urine WBC 5-10 /HPF (NEGATIVE) 01/05/17 01:48 Ur Squamous Epith Cells Rare /HPF (NEGATIVE) 01/05/17 01:48 Urine Bacteria 1+ /HPF (NEGATIVE) 01/05/17 01:48 Urine Mucus Few /HPF (NEGATIVE) 01/05/17 01:48 Ur Culture Indicated? Yes/culture set up 01/05/17 01:48 Digoxin 0.98 ng/mL (0.9-2) 01/08/17 04:10 - Plan (1) Pneumonia Status: Acute Qualifiers: Pneumonia type: P Aspiration pneumonia type: A Laterality: L Lung location: L Plan: CONTINUE IV ATBX,RESP THREAPY, PULMONARY TOILETING, INCREASE PO FLUIDS. PT, ADD SOLU MEDROL 40MG IV X 3 DAYS (2) Hemoptysis Status: Acute Plan: CT CHEST REVEALED BILATERAL PNEUMONIA. CONTINUE CURRENT MEDS, REPEAT AM LABS (3) Atrial fibrillation Status: Chronic Qualifiers: Atrial fibrillation type: A Plan: CONTINUE HOME MEDS, BB, LASIX, ANTI-COAG THERAPY (4) CAD (coronary artery disease) Status: Chronic Qualifiers: Coronary Disease-Associated Artery/Lesion type: C [place] vs. transplanted heart: N Associated angina: A Plan: BP AND LIPID CONTROL (5) COPD (chronic obstructive pulmonary disease) Status: Chronic Qualifiers: COPD type: C Chronic bronchitis type: C Emphysema type: E Plan: RESP THERAPY (6) Hypertension Status: Chronic Qualifiers: Hypertension type: H
[2017-01-09] MEDS: SOLU-MEDROL 40 MG VIAL IVP SCH (19:21)
[2017-01-09] MEDS: ZOCOR TAB 10 MG PO SCH (20:54)
[2017-01-09] MEDS: LASIX IVP SCH (20:55)
[2017-01-10] MEDS: DUONEB 0.5 MG/3 MG NEB SCH ×6 (00:49→21:34)
[2017-01-10] MEDS: SOLU-MEDROL 40 MG VIAL IVP SCH ×3 (02:57→21:13)
[2017-01-10 05:30] LABS: BASOPHILS % (AUTO) 0.1 % (0.2-1.0); HEMATOCRIT 37.4 % (42.0-54.0); HEMOGLOBIN 12.6 g/dL (13.5-18.0); LYMPHOCYTES # (AUTO) 0.1 X10^3/uL (1.3-2.9); LYMPHOCYTES % (AUTO) 1.1 % (21.0-51.0); MEAN CORPUSCULAR HEMOGLOBIN 30.8 pg (27.0-34.0); MEAN CORPUSCULAR HGB CONC 33.6 g/dL (33.0-35.0); MEAN CORPUSCULAR VOLUME 91.6 fL (80.0-100.0); MEAN PLATELET VOLUME 10.8 fL (7.4-11.0); MONOCYTES # (AUTO) 0.2 x10^3/uL (0.3-0.8); MONOCYTES % (AUTO) 1.5 % (0.0-13.0); NEUTROPHILS # (AUTO) 11.6 x10^3/uL (2.2-4.8); NEUTROPHILS % (AUTO) 97.3 % (42.0-75.0); PLATELET COUNT 137 X10^3/uL (150.0-450.0); RED BLOOD COUNT 4.08 X10^6/uL (4.7-6.0); RED CELL DISTRIBUTION WIDTH 14.2 % (11.6-16.5)
[2017-01-10 05:42] LABS: ALANINE AMINOTRANSFERASE 127 Units/L (12-78); ALBUMIN 2.4 g/dL (3.4-5.0); ALKALINE PHOSPHATASE 128 Units/L (46-116); ASPARTATE AMINO TRANSFERASE 72 Units/L (15-37); BLOOD UREA NITROGEN 32 mg/dL (7-18); CALCIUM 8.5 mg/dL (8.5-10.1); CARBON DIOXIDE 27.6 mmol/L (21-32); CHLORIDE 105 mmol/L (98-107); COR CA(FOR HYPOALB) 9.8 mg/dL (8.5-10.1); COR NA(FOR HYPERGLY) 142 mmol/L (136-145); CREATININE 1.25 mg/dL (0.70-1.30); GLUCOSE 171 mg/dL (65-99); SODIUM 140 mmol/L (136-145); TOTAL PROTEIN 6.5 g/dL (6.4-8.2); eGFR BLACK RACES > 60 (>60); eGFR NON BLACK RACES 59 (>60)
[2017-01-10 05:55] LABS: PLATELET MORPHOLOGY COMMENT NORMAL (NORMAL)
--- NOTE | 2017-01-10 07:32 | RAD ---
HISTORY: Dehydration, congestive heart failure Study: Chest one view Comparison: January 09, 2017 Findings: There is a pacemaker present on the left. The patient is status post median sternotomy and CABG. The heart is enlarged. No definite congestive heart failure is noted. The lungs are hyperinflated consi stent with COPD. The previously noted right basilar lung infiltrate is again identified most promine nt in the medial right lung base. Increased density persists in the retrocardiac area of the left lo wer lobe. This could be due to pleural effusion, infiltrate, atelectasis or a combination. The upper lung powers are clear. The bony thorax is unremarkable. IMPRESSION: Cardiomegaly without congestive heart failure COPD No change right medial basal lung infiltrate Persistent increased density in the retrocardiac area of the left lower lobe silhouetting out the le ft hemidiaphragm an likely due to pleural effusion, infiltrate, atelectasis or a combination. Reported By:
[2017-01-10] MEDS: MILK OF MAGNESIA PO SCH ×2 (09:04→21:15)
[2017-01-10] MEDS: ROBITUSSIN DM PO SCH ×4 (09:04→21:14)
[2017-01-10] MEDS: CALAN SR 180 MG PO SCH (09:06)
[2017-01-10] MEDS: VIBRAMYCIN 100 MG in NS 100 ML IV + SPIKE MINIBAG* 100 ML IV SCH ×2 (09:06→21:14)
[2017-01-10] MEDS: ROCEPHIN VIAL 1 GM 1 GM in NS 50 ML IV + SPIKE MINIBAG* 50 ML IV SCH (09:06)
[2017-01-10] MEDS: LOPRESSOR TAB 25 MG PO SCH ×2 (09:06→21:14)
[2017-01-10] MEDS: LANOXIN PO SCH (09:06)
[2017-01-10] MEDS: COLACE CAP 100 MG PO SCH ×2 (09:06→21:14)
[2017-01-10] MEDS: ELIQUIS PO SCH (09:06)
[2017-01-10] MEDS: LOTENSIN TAB 10 MG PO SCH ×2 (09:06→21:14)
[2017-01-10] MEDS: LASIX IVP SCH (09:07)
[2017-01-10] MEDS ORDERED: NS 1/2 1000 ML IV 1,000 ML IV ONE (10:29)
[2017-01-10] MEDS: NS 1/2 1000 ML IV 1,000 ML IV SCH (10:40)
--- NOTE | 2017-01-10 16:56 | PCM.PROG ---
Progress Note - Subjective Subjective: CONTINUES TO COUGH UP THICK YELLOW SPUTUM, DIFFUSE WHEEZING. PT HAD 3 DOSES OF SOLU MEDROL WITH LITTLE IMPROVEMENT IN WHEEZING, WILL REPEAT STEROIDS. 81WM ADMITTED ON [place] NIGHT WITH DIAGNOSIS OF RIGHT LL PNEUMONIA. CT CHEST REVEALED BILATERAL PNEUMONIA, CONTINUE IV HYDRATION AND RESP THERAPY, REPEAT AM LABS - Past Medical Family Social History Past Med/Fam/Surg Hx: No changes since H&P Allergies: Allergies No Known Drug Allergy Allergy (Unverified 07/28/15 17:55) - Review of Systems ROS: No change since H&P - Vital Signs and I&O's Vital Signs: Temperature 97.4 F Pulse Rate [Right Brachial] 70 Pulse Rate [Left Radial] 73 Pulse Rate 64 Respiratory Rate 18 Blood Pressure [Left Arm] 141/69 O2 Sat by Pulse Oximetry 94 Intake and Output: Intake & Output 01/08/17 01/09/17 01/10/17 01/11/17 11:59 11:59 11:59 11:59 Intake Total 1850 1260 3460 540 Output Total 199 837 0836 700 Balance 8198 619 4745 -160 - Physical Exam Oriented: Normal Eyes: Normal Ear: Normal Nose: Normal Throat: Normal Respiratory: Wheezes, Rhonchi Cardiovascular: Normal. negative: Edema : Normal Auscultation: Bowel Sounds: Normal Tenderness: Normal Skin: Normal Musculoskeletal: Back:Lumbar Psychiatric: Normal Mood Description: Calm Speech Pattern: Clear, Appropriate - Laboratory and Diagnostics Result Diagrams: 01/10/17 03:45 01/10/17 03:45 Labs: Laboratory WBC 12.0 X10^3/uL (3.6-10.0) H 01/10/17 03:45 RBC 4.08 X10^6/uL (4.7-6.0) L 01/10/17 03:45 Hgb 12.6 g/dL (13.5-18.0) L 01/10/17 03:45 Hct 37.4 % (42.0-54.0) L 01/10/17 03:45 MCV 91.6 fL (80.0-100.0) 01/10/17 03:45 MCH 30.8 pg (27.0-34.0) 01/10/17 03:45 MCHC 33.6 g/dL (33.0-35.0) 01/10/17 03:45 RDW 14.2 % (11.6-16.5) 01/10/17 03:45 Plt Count 137 X10^3/uL (150.0-450.0) L 01/10/17 03:45 Plt Count Comment Decreased (ADEQUATE) 01/10/17 03:45 MPV 10.8 fL (7.4-11.0) 01/10/17 03:45 Neut % 97.3 % (42.0-75.0) H 01/10/17 03:45 Lymph % 1.1 % (21.0-51.0) L 01/10/17 03:45 [place] % 1.5 % (0.0-13.0) 01/10/17 03:45 Eos % 0.0 % (0.9-2.9) L 01/10/17 03:45 Baso % 0.1 % (0.2-1.0) L 01/10/17 03:45 Neut # 11.6 x10^3/uL (2.2-4.8) H 01/10/17 03:45 Lymph # 0.1 X10^3/uL (1.3-2.9) L 01/10/17 03:45 [place] # 0.2 x10^3/uL (0.3-0.8) L 01/10/17 03:45 Eos # 0.0 x10^3/uL (0.0-0.2) 01/10/17 03:45 Baso # 0.0 X10^3/uL (0.0-0.1) 01/10/17 03:45 Absolute Nucleated RBC 0.0 /100WBC 01/10/17 03:45 Total Counted 100 01/10/17 03:45 Neutrophils % (Manual) 98 % (39-76) H 01/10/17 03:45 Band Neutrophils % 6 % (0-10) 01/05/17 01:30 Lymphocytes % (Manual) 1 % (13-43) L 01/10/17 03:45 Monocytes % (Manual) 1 % (4-9) L 01/10/17 03:45 Plt Morphology Comment Normal (NORMAL) 01/10/17 03:45 RBC Morphology Normal (NORMAL) 01/10/17 03:45 INR Target Range - 01/05/17 01:30 INR 1.61 (0.8-1.3) H 01/05/17 01:30 PTT 31.5 SECONDS (22.9-36.5) 01/05/17 01:30 PTT Comment - 01/05/17 01:30 D-Dimer 355 ng/mL (0-400) 01/05/17 01:30 Sodium 140 mmol/L (136-145) 01/10/17 03:45 Corrected Sodium 142 mmol/L (136-145) 01/10/17 03:45 Potassium 5.1 mmol/L (3.5-5.1) 01/10/17 03:45 Chloride 105 mmol/L (98-107) 01/10/17 03:45 Carbon Dioxide 27.6 mmol/L (21-32) 01/10/17 03:45 BUN 32 mg/dL (7-18) H 01/10/17 03:45 Creatinine 1.25 mg/dL (0.70-1.30) 01/10/17 03:45 Est GFR (MDRD) Af Amer > 60 (>60) 01/10/17 03:45 Est GFR (MDRD) Non-Af 59 (>60) 01/10/17 03:45 Glucose 171 mg/dL (65-99) H 01/10/17 03:45 Calcium 8.5 mg/dL (8.5-10.1) 01/10/17 03:45 Corrected Calcium 9.8 mg/dL (8.5-10.1) 01/10/17 03:45 Total Bilirubin 0.60 mg/dL (0.2-1.0) 01/10/17 03:45 AST 72 Units/L (15-37) H 01/10/17 03:45 ALT 127 Units/L (12-78) H 01/10/17 03:45 Alkaline Phosphatase 128 Units/L (46-116) H 01/10/17 03:45 Total Protein 6.5 g/dL (6.4-8.2) 01/10/17 03:45 Albumin 2.4 g/dL (3.4-5.0) L 01/10/17 03:45 Globulin 4.1 g/dL (2.5-4.5) 01/10/17 03:45 Albumin/Globulin Ratio 0.6 Ratio (1.1-2.1) L 01/10/17 03:45 Specimen Type Clean catch urine 01/05/17 01:48 Urine Color Yellow (YELLOW) 01/05/17 01:48 Urine Appearance Hazy (CLEAR) 01/05/17 01:48 Urine pH 5.0 (5.0 - 8.0) 01/05/17 01:48 Ur Specific [place] 1.025 (1.000-1.030) 01/05/17 01:48 Urine Protein 2+ (NEGATIVE) 01/05/17 01:48 Urine Glucose (UA) Negative (NEGATIVE) 01/05/17 01:48 Urine Ketones Negative (NEGATIVE) 01/05/17 01:48 Urine Occult Blood 2+ (NEGATIVE) 01/05/17 01:48 Urine Nitrite Negative (NEGATIVE) 01/05/17 01:48 Urine Bilirubin 1+ (NEGATIVE) 01/05/17 01:48 Urine Urobilinogen 2+ (NORMAL) 01/05/17 01:48 Ur Leukocyte Esterase 1+ (NEGATIVE) 01/05/17 01:48 Urine RBC 0-3 /HPF (NEGATIVE) 01/05/17 01:48 Urine WBC 5-10 /HPF (NEGATIVE) 01/05/17 01:48 Ur Squamous Epith Cells Rare /HPF (NEGATIVE) 01/05/17 01:48 Urine Bacteria 1+ /HPF (NEGATIVE) 01/05/17 01:48 Urine Mucus Few /HPF (NEGATIVE) 01/05/17 01:48 Ur Culture Indicated? Yes/culture set up 01/05/17 01:48 Digoxin 0.98 ng/mL (0.9-2) 01/08/17 04:10 Theophylline < 2.0 ug/mL (10-20) L 01/09/17 19:05 - Plan (1) Pneumonia Status: Acute Qualifiers: Pneumonia type: P Aspiration pneumonia type: A Laterality: L Lung location: L Plan: CONTINUE IV ATBX,RESP THREAPY, PULMONARY TOILETING, INCREASE PO FLUIDS. PT, CONTINUE SOLU MEDROL 40MG IV (2) Hemoptysis Status: Acute Plan: CT CHEST REVEALED BILATERAL PNEUMONIA. CONTINUE CURRENT MEDS, REPEAT AM LABS (3) Atrial fibrillation Status: Chronic Qualifiers: Atrial fibrillation type: A Plan: CONTINUE HOME MEDS, BB, LASIX, ANTI-COAG THERAPY (4) CAD (coronary artery disease) Status: Chronic Qualifiers: Coronary Disease-Associated Artery/Lesion type: C [place] vs. transplanted heart: N Associated angina: A Plan: BP AND LIPID CONTROL (5) COPD (chronic obstructive pulmonary disease) Status: Chronic Qualifiers: COPD type: C Chronic bronchitis type: C Emphysema type: E Plan: RESP THERAPY (6) Hypertension Status: Chronic Qualifiers: Hypertension type: H
[2017-01-10] MEDS ORDERED: NORCO 7.5/325 MG TAB PO PRN (17:02)
[2017-01-10] MEDS: ZOCOR TAB 10 MG PO SCH (21:14)
[2017-01-11] MEDS: NS 1/2 1000 ML IV 1,000 ML IV SCH ×2 (00:33→18:03)
[2017-01-11] MEDS ORDERED: NS 1/2 1000 ML IV 1,000 ML IV ONE ×2 (00:33→17:28)
[2017-01-11] MEDS: DUONEB 0.5 MG/3 MG NEB SCH ×6 (01:52→20:49)
[2017-01-11] MEDS: SOLU-MEDROL 40 MG VIAL IVP SCH ×3 (05:08→21:45)
[2017-01-11 06:17] LABS: BASOPHILS % (AUTO) 0.1 % (0.2-1.0); HEMATOCRIT 38.9 % (42.0-54.0); HEMOGLOBIN 12.6 g/dL (13.5-18.0); LYMPHOCYTES # (AUTO) 0.3 X10^3/uL (1.3-2.9); LYMPHOCYTES % (AUTO) 1.4 % (21.0-51.0); MEAN CORPUSCULAR HEMOGLOBIN 30.1 pg (27.0-34.0); MEAN CORPUSCULAR HGB CONC 32.5 g/dL (33.0-35.0); MEAN CORPUSCULAR VOLUME 92.6 fL (80.0-100.0); MEAN PLATELET VOLUME 10.9 fL (7.4-11.0); MONOCYTES # (AUTO) 0.6 x10^3/uL (0.3-0.8); MONOCYTES % (AUTO) 3.1 % (0.0-13.0); NEUTROPHILS % (AUTO) 95.4 % (42.0-75.0); PLATELET COUNT 173 X10^3/uL (150.0-450.0); RED CELL DISTRIBUTION WIDTH 14.2 % (11.6-16.5)
[2017-01-11 06:26] LABS: ALANINE AMINOTRANSFERASE 121 Units/L (12-78); ALBUMIN 2.5 g/dL (3.4-5.0); ALKALINE PHOSPHATASE 125 Units/L (46-116); ASPARTATE AMINO TRANSFERASE 58 Units/L (15-37); BLOOD UREA NITROGEN 31 mg/dL (7-18); CALCIUM 8.5 mg/dL (8.5-10.1); CHLORIDE 106 mmol/L (98-107); COR CA(FOR HYPOALB) 9.7 mg/dL (8.5-10.1); COR NA(FOR HYPERGLY) 144 mmol/L (136-145); GLUCOSE 157 mg/dL (65-99); SODIUM 143 mmol/L (136-145); TOTAL PROTEIN 6.5 g/dL (6.4-8.2); eGFR BLACK RACES > 60 (>60); eGFR NON BLACK RACES > 60 (>60)
[2017-01-11 06:51] LABS: BAND NEUTROPHILS % 4 % (0-10)
[2017-01-11 06:52] LABS: PLATELET MORPHOLOGY COMMENT NORMAL (NORMAL)
[2017-01-11] MEDS: ROCEPHIN VIAL 1 GM 1 GM in NS 50 ML IV + SPIKE MINIBAG* 50 ML IV SCH (09:11)
[2017-01-11] MEDS: MILK OF MAGNESIA PO SCH ×3 (09:13→20:33)
[2017-01-11] MEDS: LOTENSIN TAB 10 MG PO SCH ×2 (09:13→20:29)
[2017-01-11] MEDS: ELIQUIS PO SCH (09:13)
[2017-01-11] MEDS: LOPRESSOR TAB 25 MG PO SCH ×2 (09:13→20:29)
[2017-01-11] MEDS: LANOXIN PO SCH (09:13)
[2017-01-11] MEDS: CALAN SR 180 MG PO SCH (09:13)
[2017-01-11] MEDS: ROBITUSSIN DM PO SCH ×4 (09:13→20:29)
[2017-01-11] MEDS: COLACE CAP 100 MG PO SCH ×2 (09:13→20:29)
[2017-01-11] MEDS: VIBRAMYCIN 100 MG in NS 100 ML IV + SPIKE MINIBAG* 100 ML IV SCH ×2 (09:45→20:28)
[2017-01-11] MEDS: LEVAQUIN PREMIX IV 500 MG 500 MG/100 ML BAG IV SCH (11:23)
[2017-01-11] MEDS: ZOCOR TAB 10 MG PO SCH (20:30)
[2017-01-12] MEDS: DUONEB 0.5 MG/3 MG NEB SCH ×6 (00:58→20:47)
[2017-01-12] MEDS ORDERED: NS 1/2 1000 ML IV 0 ML IV ONE (05:09)
[2017-01-12] MEDS: NS 1/2 1000 ML IV 1,000 ML IV SCH ×3 (05:19→20:45)
[2017-01-12] MEDS: SOLU-MEDROL 40 MG VIAL IVP SCH ×3 (05:19→21:05)
[2017-01-12 06:27] LABS: BASOPHILS % (AUTO) 0 % (0.2-1.0); HEMATOCRIT 38.5 % (42.0-54.0); HEMOGLOBIN 12.8 g/dL (13.5-18.0); LYMPHOCYTES # (AUTO) 0.3 X10^3/uL (1.3-2.9); LYMPHOCYTES % (AUTO) 1.6 % (21.0-51.0); MEAN CORPUSCULAR HEMOGLOBIN 30.5 pg (27.0-34.0); MEAN CORPUSCULAR HGB CONC 33.4 g/dL (33.0-35.0); MEAN CORPUSCULAR VOLUME 91.3 fL (80.0-100.0); MEAN PLATELET VOLUME 10.4 fL (7.4-11.0); MONOCYTES # (AUTO) 0.5 x10^3/uL (0.3-0.8); MONOCYTES % (AUTO) 3.3 % (0.0-13.0); NEUTROPHILS # (AUTO) 15.3 x10^3/uL (2.2-4.8); NEUTROPHILS % (AUTO) 95.1 % (42.0-75.0); PLATELET COUNT 189 X10^3/uL (150.0-450.0); RED BLOOD COUNT 4.21 X10^6/uL (4.7-6.0); RED CELL DISTRIBUTION WIDTH 14.2 % (11.6-16.5); WHITE BLOOD COUNT 16.1 X10^3/uL (3.6-10.0)
[2017-01-12 06:28] LABS: ALANINE AMINOTRANSFERASE 127 Units/L (12-78); ALBUMIN 2.6 g/dL (3.4-5.0); ALKALINE PHOSPHATASE 121 Units/L (46-116); ASPARTATE AMINO TRANSFERASE 48 Units/L (15-37); BLOOD UREA NITROGEN 39 mg/dL (7-18); CALCIUM 8.1 mg/dL (8.5-10.1); CARBON DIOXIDE 31.4 mmol/L (21-32); CHLORIDE 106 mmol/L (98-107); COR CA(FOR HYPOALB) 9.2 mg/dL (8.5-10.1); COR NA(FOR HYPERGLY) 144 mmol/L (136-145); CREATININE 1.17 mg/dL (0.70-1.30); GLUCOSE 167 mg/dL (65-99); SODIUM 142 mmol/L (136-145); TOTAL PROTEIN 5.9 g/dL (6.4-8.2); eGFR BLACK RACES > 60 (>60); eGFR NON BLACK RACES > 60 (>60)
[2017-01-12 06:54] LABS: BAND NEUTROPHILS % 2 % (0-10)
[2017-01-12 06:55] LABS: PLATELET MORPHOLOGY COMMENT NORMAL (NORMAL)
[2017-01-12] MEDS: LEVAQUIN PREMIX IV 500 MG 500 MG/100 ML BAG IV SCH (08:30)
[2017-01-12] MEDS: VIBRAMYCIN 100 MG in NS 100 ML IV + SPIKE MINIBAG* 100 ML IV SCH ×2 (08:30→20:41)
[2017-01-12] MEDS: ROCEPHIN VIAL 1 GM 1 GM in NS 50 ML IV + SPIKE MINIBAG* 50 ML IV SCH (08:30)
[2017-01-12] MEDS: MILK OF MAGNESIA PO SCH ×2 (08:31→20:41)
[2017-01-12] MEDS: LANOXIN PO SCH (08:31)
[2017-01-12] MEDS: COLACE CAP 100 MG PO SCH ×2 (08:31→20:41)
[2017-01-12] MEDS: CALAN SR 180 MG PO SCH (08:31)
[2017-01-12] MEDS: LOPRESSOR TAB 25 MG PO SCH ×2 (08:31→20:41)
[2017-01-12] MEDS: ELIQUIS PO SCH (08:31)
[2017-01-12] MEDS: ROBITUSSIN DM PO SCH ×4 (08:31→20:41)
[2017-01-12] MEDS: LOTENSIN TAB 10 MG PO SCH ×2 (08:31→20:41)
--- NOTE | 2017-01-12 13:31 | CT ---
History: Weakness and shortness of breath Study: Multi senior planner CT thorax without IV contrast Findings: There are bilateral pleural effusions, small on the left and smaller on the right. There i s left lower lobe consolidation with air bronchograms. There is mild cardiomegaly. There is coronary artery calcification. The partially visualized upper abdomen is unremarkable. Impression: 1. Bilateral pleural effusions and cardiomegaly 2. Left lower lobe consolidation probably from pneumonia Reported By:
--- NOTE | 2017-01-12 14:01 | RAD ---
HISTORY: CHF Study: PA and lateral chest Comparison: January 10 Findings: The trachea is midline. The cardiac silhouette is moderately enlarged as before status post old carla rnotomy. There is an intact pacer wire via the left subclavian vein.. There is vascular congestion and pleural effusions, left larger than right. There is consolidation in the left lower lobe.. The bony thorax is unremarkable. IMPRESSION: 1. CHF 2. Left lower lobe consolidation Reported By:
[2017-01-12] MEDS ORDERED: NS 1/2 1000 ML IV 1,000 ML IV ONE (19:03)
[2017-01-12] MEDS: ZOCOR TAB 10 MG PO SCH (20:41)
[2017-01-13] MEDS: DUONEB 0.5 MG/3 MG NEB SCH ×6 (00:51→21:00)
[2017-01-13] MEDS: SOLU-MEDROL 40 MG VIAL IVP SCH ×3 (05:16→21:37)
[2017-01-13 06:33] LABS: BLOOD UREA NITROGEN 34 mg/dL (7-18); CALCIUM 8.4 mg/dL (8.5-10.1); CARBON DIOXIDE 28.8 mmol/L (21-32); CHLORIDE 105 mmol/L (98-107); COR NA(FOR HYPERGLY) 141 mmol/L (136-145); CREATININE 1.03 mg/dL (0.70-1.30); GLUCOSE 158 mg/dL (65-99); SODIUM 140 mmol/L (136-145); eGFR BLACK RACES > 60 (>60); eGFR NON BLACK RACES > 60 (>60)
[2017-01-13 06:46] LABS: BASOPHILS % (AUTO) 0.1 % (0.2-1.0); LYMPHOCYTES # (AUTO) 0.2 X10^3/uL (1.3-2.9); LYMPHOCYTES % (AUTO) 1.7 % (21.0-51.0); MEAN CORPUSCULAR HEMOGLOBIN 30.5 pg (27.0-34.0); MEAN CORPUSCULAR HGB CONC 33.4 g/dL (33.0-35.0); MEAN CORPUSCULAR VOLUME 91.1 fL (80.0-100.0); MEAN PLATELET VOLUME 10.4 fL (7.4-11.0); MONOCYTES # (AUTO) 0.5 x10^3/uL (0.3-0.8); MONOCYTES % (AUTO) 3.7 % (0.0-13.0); NEUTROPHILS # (AUTO) 12.7 x10^3/uL (2.2-4.8); NEUTROPHILS % (AUTO) 94.5 % (42.0-75.0); PLATELET COUNT 181 X10^3/uL (150.0-450.0); RED BLOOD COUNT 4.28 X10^6/uL (4.7-6.0); RED CELL DISTRIBUTION WIDTH 14.1 % (11.6-16.5); WHITE BLOOD COUNT 13.4 X10^3/uL (3.6-10.0)
[2017-01-13 08:22] LABS: PLATELET MORPHOLOGY COMMENT NORMAL (NORMAL)
[2017-01-13] MEDS ORDERED: NS 1/2 1000 ML IV 1,000 ML IV ONE ×2 (09:17→17:38)
[2017-01-13] MEDS: ROCEPHIN VIAL 1 GM 1 GM in NS 50 ML IV + SPIKE MINIBAG* 50 ML IV SCH (09:25)
[2017-01-13] MEDS: NS 1/2 1000 ML IV 1,000 ML IV SCH ×2 (09:25→17:45)
[2017-01-13] MEDS: LANOXIN PO SCH (09:28)
[2017-01-13] MEDS: MILK OF MAGNESIA PO SCH ×2 (09:28→21:37)
[2017-01-13] MEDS: CALAN SR 180 MG PO SCH (09:28)
[2017-01-13] MEDS: LOPRESSOR TAB 25 MG PO SCH ×2 (09:28→21:37)
[2017-01-13] MEDS: ELIQUIS PO SCH (09:29)
[2017-01-13] MEDS: COLACE CAP 100 MG PO SCH ×2 (09:29→21:37)
[2017-01-13] MEDS: LOTENSIN TAB 10 MG PO SCH ×2 (09:29→21:37)
[2017-01-13] MEDS: VIBRAMYCIN 100 MG in NS 100 ML IV + SPIKE MINIBAG* 100 ML IV SCH ×2 (10:16→21:35)
[2017-01-13] MEDS: LEVAQUIN PREMIX IV 500 MG 500 MG/100 ML BAG IV SCH (11:45)
[2017-01-13] MEDS: ROBITUSSIN DM PO SCH ×4 (12:00→21:37)
[2017-01-13] MEDS: ZOCOR TAB 10 MG PO SCH (21:37)
[2017-01-14] MEDS: DUONEB 0.5 MG/3 MG NEB SCH ×6 (00:57→21:11)
[2017-01-14] MEDS: XANAX PO PRN ×2 (01:20→23:17)
[2017-01-14 05:02] LABS: BASOPHILS % (AUTO) 0.1 % (0.2-1.0); HEMATOCRIT 39.4 % (42.0-54.0); HEMOGLOBIN 13.1 g/dL (13.5-18.0); LYMPHOCYTES # (AUTO) 0.2 X10^3/uL (1.3-2.9); LYMPHOCYTES % (AUTO) 1.4 % (21.0-51.0); MEAN CORPUSCULAR HEMOGLOBIN 30.2 pg (27.0-34.0); MEAN CORPUSCULAR HGB CONC 33.3 g/dL (33.0-35.0); MEAN CORPUSCULAR VOLUME 90.6 fL (80.0-100.0); MONOCYTES # (AUTO) 0.4 x10^3/uL (0.3-0.8); MONOCYTES % (AUTO) 3.2 % (0.0-13.0); NEUTROPHILS # (AUTO) 13.1 x10^3/uL (2.2-4.8); NEUTROPHILS % (AUTO) 95.3 % (42.0-75.0); PLATELET COUNT 178 X10^3/uL (150.0-450.0); RED BLOOD COUNT 4.35 X10^6/uL (4.7-6.0); RED CELL DISTRIBUTION WIDTH 14.1 % (11.6-16.5); WHITE BLOOD COUNT 13.8 X10^3/uL (3.6-10.0)
[2017-01-14 05:05] LABS: ALANINE AMINOTRANSFERASE 216 Units/L (12-78); ALBUMIN 2.4 g/dL (3.4-5.0); ALKALINE PHOSPHATASE 104 Units/L (46-116); ASPARTATE AMINO TRANSFERASE 94 Units/L (15-37); BLOOD UREA NITROGEN 33 mg/dL (7-18); CALCIUM 8.2 mg/dL (8.5-10.1); CARBON DIOXIDE 33.7 mmol/L (21-32); CHLORIDE 104 mmol/L (98-107); COR CA(FOR HYPOALB) 9.5 mg/dL (8.5-10.1); COR NA(FOR HYPERGLY) 142 mmol/L (136-145); GLUCOSE 154 mg/dL (65-99); SODIUM 141 mmol/L (136-145); TOTAL PROTEIN 5.8 g/dL (6.4-8.2); eGFR BLACK RACES > 60 (>60); eGFR NON BLACK RACES > 60 (>60)
[2017-01-14 06:00] LABS: PLATELET MORPHOLOGY COMMENT NORMAL (NORMAL)
--- NOTE | 2017-01-14 06:32 | RAD ---
PA and lateral Chest Indication: Followup pneumonia Comparison: 01/12/2017 Findings: The trachea is midline. The cardiac silhouette is the enlarged with previous CABG and pacemaker unc hanged from prior examination. Consolidation within the left lower lobe and opacification of the lef t costophrenic sulcus consistent with layering pleural effusion and infiltrate versus compressive at electasis. Small right-sided pleural effusion is again noted. Upper lungs are clear. No pneumothorax . No acute osseous abnormality. Impression: No change from prior examination again demonstrating bilateral pleural effusions and consolidation w ithin left lower lobe potentially representing compressive atelectasis versus infiltrate. Stable cardiomegaly post CABG. Reported By:
[2017-01-14] MEDS: NS 1/2 1000 ML IV 1,000 ML IV SCH (08:42)
[2017-01-14] MEDS: ROCEPHIN VIAL 1 GM 1 GM in NS 50 ML IV + SPIKE MINIBAG* 50 ML IV SCH (08:52)
[2017-01-14] MEDS: VIBRAMYCIN 100 MG in NS 100 ML IV + SPIKE MINIBAG* 100 ML IV SCH ×2 (09:18→20:31)
[2017-01-14] MEDS: LEVAQUIN PREMIX IV 500 MG 500 MG/100 ML BAG IV SCH (10:47)
[2017-01-14] MEDS: LANOXIN PO SCH (10:48)
[2017-01-14] MEDS: ROBITUSSIN DM PO SCH ×4 (10:48→20:33)
[2017-01-14] MEDS: ELIQUIS PO SCH (10:49)
[2017-01-14] MEDS: CALAN SR 180 MG PO SCH (10:49)
[2017-01-14] MEDS: LOTENSIN TAB 10 MG PO SCH ×2 (10:49→20:33)
[2017-01-14] MEDS: LOPRESSOR TAB 25 MG PO SCH ×2 (10:49→20:33)
[2017-01-14] MEDS: MILK OF MAGNESIA PO SCH ×2 (10:50→20:33)
[2017-01-14] MEDS: COLACE CAP 100 MG PO SCH ×2 (10:50→20:33)
[2017-01-14] MEDS: ZOCOR TAB 10 MG PO SCH (20:34)
[2017-01-15] MEDS: DUONEB 0.5 MG/3 MG NEB SCH ×6 (00:31→20:06)
[2017-01-15 05:25] LABS: BASOPHILS % (AUTO) 0 % (0.2-1.0); EOSINOPHILS % (AUTO) 0.3 % (0.9-2.9); HEMATOCRIT 39.7 % (42.0-54.0); HEMOGLOBIN 13.3 g/dL (13.5-18.0); LYMPHOCYTES # (AUTO) 0.9 X10^3/uL (1.3-2.9); LYMPHOCYTES % (AUTO) 7.5 % (21.0-51.0); MEAN CORPUSCULAR HEMOGLOBIN 30.5 pg (27.0-34.0); MEAN CORPUSCULAR HGB CONC 33.5 g/dL (33.0-35.0); MONOCYTES # (AUTO) 1.2 x10^3/uL (0.3-0.8); MONOCYTES % (AUTO) 9.1 % (0.0-13.0); NEUTROPHILS # (AUTO) 10.5 x10^3/uL (2.2-4.8); NEUTROPHILS % (AUTO) 83.1 % (42.0-75.0); PLATELET COUNT 181 X10^3/uL (150.0-450.0); RED BLOOD COUNT 4.36 X10^6/uL (4.7-6.0); WHITE BLOOD COUNT 12.6 X10^3/uL (3.6-10.0)
[2017-01-15 05:40] LABS: ALANINE AMINOTRANSFERASE 187 Units/L (12-78); ALBUMIN 2.3 g/dL (3.4-5.0); ALKALINE PHOSPHATASE 95 Units/L (46-116); ASPARTATE AMINO TRANSFERASE 60 Units/L (15-37); BLOOD UREA NITROGEN 33 mg/dL (7-18); CALCIUM 7.9 mg/dL (8.5-10.1); CARBON DIOXIDE 32.8 mmol/L (21-32); CHLORIDE 107 mmol/L (98-107); COR CA(FOR HYPOALB) 9.3 mg/dL (8.5-10.1); CREATININE 1.12 mg/dL (0.70-1.30); GLUCOSE 88 mg/dL (65-99); SODIUM 143 mmol/L (136-145); TOTAL PROTEIN 5.3 g/dL (6.4-8.2); eGFR BLACK RACES > 60 (>60); eGFR NON BLACK RACES > 60 (>60)
--- NOTE | 2017-01-15 07:04 | RAD ---
HISTORY: Follow up pneumonia Study: Chest two-view Comparison: January 14, 2017 Findings: The patient is status post median sternotomy and CABG. There is a pacemaker present on the left. The heart remains enlarged. No congestive heart failure is noted. Increasing density is present in the right lung base consistent with increasing right lower lobe infiltrate and likely increasing right p leural effusion. Persistent increased density were remains in the left lower lobe likely due to atel ectasis and infiltrate. Left pleural effusion is unchanged. The upper lung powers are clear. The bon y thorax is unremarkable. IMPRESSION: Cardiomegaly without congestive heart failure Increasing right basilar lung infiltrate No change left lower lobe consolidation No change bilateral pleural effusions left greater than right Reported By:
[2017-01-15] MEDS ORDERED: NS 1/2 1000 ML IV 1,000 ML IV ONE (08:40)
[2017-01-15] MEDS: ROCEPHIN VIAL 1 GM 1 GM in NS 50 ML IV + SPIKE MINIBAG* 50 ML IV SCH (08:42)
[2017-01-15] MEDS: NS 1/2 1000 ML IV 1,000 ML IV SCH (08:43)
[2017-01-15] MEDS: CALAN SR 180 MG PO SCH (08:46)
[2017-01-15] MEDS: LANOXIN PO SCH (08:46)
[2017-01-15] MEDS: LOTENSIN TAB 10 MG PO SCH ×2 (08:48→20:27)
[2017-01-15] MEDS: ROBITUSSIN DM PO SCH ×4 (08:48→20:27)
[2017-01-15] MEDS: LOPRESSOR TAB 25 MG PO SCH ×2 (08:48→20:26)
[2017-01-15] MEDS: ELIQUIS PO SCH (08:48)
[2017-01-15] MEDS: COLACE CAP 100 MG PO SCH ×2 (08:48→20:27)
[2017-01-15] MEDS: MILK OF MAGNESIA PO SCH ×2 (08:49→21:50)
[2017-01-15] MEDS: LEVAQUIN PREMIX IV 500 MG 500 MG/100 ML BAG IV SCH (09:35)
[2017-01-15] MEDS: VIBRAMYCIN 100 MG in NS 100 ML IV + SPIKE MINIBAG* 100 ML IV SCH ×2 (10:50→20:26)
[2017-01-15] MEDS: LASIX IVP SCH ×2 (13:27→20:25)
--- NOTE | 2017-01-15 18:14 | PCM.PROG ---
Progress Note - Progress Note for Day of Date: 01/14/17 - Subjective Subjective: 81WM ADMITTED ON 01/05 WITH DIAGNOSIS OF RIGHT LL PNEUMONIA. patient had repeat CT of the chest on Saturday which revealed improving pneumonia, continued left lower lobe infiltrate. Plan to continue IV anabolic therapy, respiratory therapy,, physical therapy. Will repeat a.m. chest x-ray and labs - Past Medical Family Social History Past Med/Fam/Surg Hx: No changes since H&P Allergies: Allergies No Known Drug Allergy Allergy (Unverified 07/28/15 17:55) - Review of Systems ROS: No change since H&P - Vital Signs and I&O's Vital Signs: Temperature 97.6 F Pulse Rate [Left Brachial] 70 Pulse Rate [Right Brachial] 70 Pulse Rate [Left Radial] 70 Pulse Rate 71 Respiratory Rate 20 Blood Pressure [Right Arm] 158/78 Blood Pressure [Left Arm] 134/64 O2 Sat by Pulse Oximetry 94 Intake and Output: Intake & Output 01/13/17 01/14/17 01/15/17 01/16/17 11:59 11:59 11:59 11:59 Intake Total 2232 1474 1900 1000 Output Total 414 222 6362 2100 Balance 1857 135 -350 1100 - Physical Exam Oriented: Normal Eyes: Normal Ear: Normal Nose: Normal Throat: Normal Respiratory: Diminished, Wheezes Cardiovascular: Normal. negative: Edema : Normal Auscultation: Bowel Sounds: Normal Tenderness: Normal Skin: Normal Musculoskeletal: Back:Lumbar Psychiatric: Normal Mood Description: Calm Speech Pattern: Clear, Appropriate - Laboratory and Diagnostics Result Diagrams: 01/15/17 03:55 01/15/17 03:55 Labs: Laboratory WBC 12.6 X10^3/uL (3.6-10.0) H 01/15/17 03:55 RBC 4.36 X10^6/uL (4.7-6.0) L 01/15/17 03:55 Hgb 13.3 g/dL (13.5-18.0) L 01/15/17 03:55 Hct 39.7 % (42.0-54.0) L 01/15/17 03:55 MCV 91.0 fL (80.0-100.0) 01/15/17 03:55 MCH 30.5 pg (27.0-34.0) 01/15/17 03:55 MCHC 33.5 g/dL (33.0-35.0) 01/15/17 03:55 RDW 14.0 % (11.6-16.5) 01/15/17 03:55 Plt Count 181 X10^3/uL (150.0-450.0) 01/15/17 03:55 Plt Count Comment Adequate (ADEQUATE) 01/14/17 04:00 MPV 10.0 fL (7.4-11.0) 01/15/17 03:55 Neut % 83.1 % (42.0-75.0) H 01/15/17 03:55 Lymph % 7.5 % (21.0-51.0) L 01/15/17 03:55 [place] % 9.1 % (0.0-13.0) 01/15/17 03:55 Eos % 0.3 % (0.9-2.9) L 01/15/17 03:55 Baso % 0 % (0.2-1.0) L 01/15/17 03:55 Neut # 10.5 x10^3/uL (2.2-4.8) H 01/15/17 03:55 Lymph # 0.9 X10^3/uL (1.3-2.9) L 01/15/17 03:55 [place] # 1.2 x10^3/uL (0.3-0.8) H 01/15/17 03:55 Eos # 0.0 x10^3/uL (0.0-0.2) 01/15/17 03:55 Baso # 0.0 X10^3/uL (0.0-0.1) 01/15/17 03:55 Absolute Nucleated RBC 0.0 /100WBC 01/15/17 03:55 Total Counted 100 01/14/17 04:00 Neutrophils % (Manual) 95 % (39-76) H 01/14/17 04:00 Band Neutrophils % 2 % (0-10) 01/12/17 04:55 Lymphocytes % (Manual) 2 % (13-43) L 01/14/17 04:00 Monocytes % (Manual) 3 % (4-9) L 01/14/17 04:00 Plt Morphology Comment Normal (NORMAL) 01/14/17 04:00 RBC Morphology Normal (NORMAL) 01/14/17 04:00 INR Target Range - 01/05/17 01:30 INR 1.61 (0.8-1.3) H 01/05/17 01:30 PTT 31.5 SECONDS (22.9-36.5) 01/05/17 01:30 PTT Comment - 01/05/17 01:30 D-Dimer 355 ng/mL (0-400) 01/05/17 01:30 Sodium 143 mmol/L (136-145) 01/15/17 03:55 Corrected Sodium TNP 01/15/17 03:55 Potassium 4.8 mmol/L (3.5-5.1) 01/15/17 03:55 Chloride 107 mmol/L (98-107) 01/15/17 03:55 Carbon Dioxide 32.8 mmol/L (21-32) H 01/15/17 03:55 BUN 33 mg/dL (7-18) H 01/15/17 03:55 Creatinine 1.12 mg/dL (0.70-1.30) 01/15/17 03:55 Est GFR (MDRD) Af Amer > 60 (>60) 01/15/17 03:55 Est GFR (MDRD) Non-Af > 60 (>60) 01/15/17 03:55 Glucose 88 mg/dL (65-99) 01/15/17 03:55 Calcium 7.9 mg/dL (8.5-10.1) L 01/15/17 03:55 Corrected Calcium 9.3 mg/dL (8.5-10.1) 01/15/17 03:55 Total Bilirubin 0.70 mg/dL (0.2-1.0) 01/15/17 03:55 AST 60 Units/L (15-37) H 01/15/17 03:55 ALT 187 Units/L (12-78) H 01/15/17 03:55 Alkaline Phosphatase 95 Units/L (46-116) 01/15/17 03:55 Total Protein 5.3 g/dL (6.4-8.2) L 01/15/17 03:55 Albumin 2.3 g/dL (3.4-5.0) L 01/15/17 03:55 Globulin 3.0 g/dL (2.5-4.5) 01/15/17 03:55 Albumin/Globulin Ratio 0.8 Ratio (1.1-2.1) L 01/15/17 03:55 Specimen Type Clean catch urine 01/05/17 01:48 Urine Color Yellow (YELLOW) 01/05/17 01:48 Urine Appearance Hazy (CLEAR) 01/05/17 01:48 Urine pH 5.0 (5.0 - 8.0) 01/05/17 01:48 Ur Specific [place] 1.025 (1.000-1.030) 01/05/17 01:48 Urine Protein 2+ (NEGATIVE) 01/05/17 01:48 Urine Glucose (UA) Negative (NEGATIVE) 01/05/17 01:48 Urine Ketones Negative (NEGATIVE) 01/05/17 01:48 Urine Occult Blood 2+ (NEGATIVE) 01/05/17 01:48 Urine Nitrite Negative (NEGATIVE) 01/05/17 01:48 Urine Bilirubin 1+ (NEGATIVE) 01/05/17 01:48 Urine Urobilinogen 2+ (NORMAL) 01/05/17 01:48 Ur Leukocyte Esterase 1+ (NEGATIVE) 01/05/17 01:48 Urine RBC 0-3 /HPF (NEGATIVE) 01/05/17 01:48 Urine WBC 5-10 /HPF (NEGATIVE) 01/05/17 01:48 Ur Squamous Epith Cells Rare /HPF (NEGATIVE) 01/05/17 01:48 Urine Bacteria 1+ /HPF (NEGATIVE) 01/05/17 01:48 Urine Mucus Few /HPF (NEGATIVE) 01/05/17 01:48 Ur Culture Indicated? Yes/culture set up 01/05/17 01:48 Digoxin 0.98 ng/mL (0.9-2) 01/08/17 04:10 Theophylline < 2.0 ug/mL (10-20) L 01/09/17 19:05 - Plan (1) Pneumonia Status: Acute Qualifiers: Pneumonia type: P Aspiration pneumonia type: A Laterality: L Lung location: L Plan: CONTINUE IV ATBX,RESP THREAPY, PULMONARY TOILETING, INCREASE PO FLUIDS. PT, (2) Hemoptysis Status: Acute Plan: CONTINUE CURRENT MEDS, REPEAT AM LABS (3) Atrial fibrillation Status: Chronic Qualifiers: Atrial fibrillation type: A Plan: CONTINUE HOME MEDS, BB, LASIX, ANTI-COAG THERAPY (4) CAD (coronary artery disease) Status: Chronic Qualifiers: Coronary Disease-Associated Artery/Lesion type: C [place] vs. transplanted heart: N Associated angina: A Plan: BP AND LIPID CONTROL (5) COPD (chronic obstructive pulmonary disease) Status: Chronic Qualifiers: COPD type: C Chronic bronchitis type: C Emphysema type: E Plan: RESP THERAPY (6) Hypertension Status: Chronic Qualifiers: Hypertension type: H
--- NOTE | 2017-01-15 18:24 | PCM.PROG ---
Progress Note - Progress Note for Day of Date: 01/15/17 - Subjective Subjective: 81WM ADMITTED ON 01/05 WITH DIAGNOSIS OF PNEUMONIA. despite antibiotic therapy sensitive to sputum culture, patient's chest x-ray continued with pneumonia, increasing right lower lobe infiltrate. Patient reports improved chest congestion as well as decreased sputum production. Patient's lung bases are dimished with mild rales. Lasix 40mg iv x 4 doses ordered. Patient has no complaints of scrotal swelling this morning. Denies pain or redness, appears to be diffuse fluid retention. Plan to elevate scrotum and obtain ultrasound. - Past Medical Family Social History Past Med/Fam/Surg Hx: No changes since H&P Allergies: Allergies No Known Drug Allergy Allergy (Unverified 07/28/15 17:55) - Review of Systems ROS: No change since H&P - Vital Signs and I&O's Vital Signs: Temperature 97.6 F Pulse Rate [Left Brachial] 70 Pulse Rate [Right Brachial] 70 Pulse Rate [Left Radial] 70 Pulse Rate 71 Respiratory Rate 20 Blood Pressure [Right Arm] 158/78 Blood Pressure [Left Arm] 134/64 O2 Sat by Pulse Oximetry 94 Intake and Output: Intake & Output 01/13/17 01/14/17 01/15/17 01/16/17 11:59 11:59 11:59 11:59 Intake Total 2232 1474 1900 1000 Output Total 744 701 8932 2100 Balance 1857 674 -350 -1100 - Physical Exam Oriented: Normal Eyes: Normal Ear: Normal Nose: Normal Throat: Normal Respiratory: Diminished, Wheezes Cardiovascular: Normal. negative: Edema : Normal Auscultation: Bowel Sounds: Normal Tenderness: Normal Skin: Normal, Other (diffuse scrotal edema, without redness) Musculoskeletal: Back:Lumbar Psychiatric: Normal Mood Description: Calm Speech Pattern: Clear, Appropriate - Laboratory and Diagnostics Result Diagrams: 01/15/17 03:55 01/15/17 03:55 Labs: Laboratory WBC 12.6 X10^3/uL (3.6-10.0) H 01/15/17 03:55 RBC 4.36 X10^6/uL (4.7-6.0) L 01/15/17 03:55 Hgb 13.3 g/dL (13.5-18.0) L 01/15/17 03:55 Hct 39.7 % (42.0-54.0) L 01/15/17 03:55 MCV 91.0 fL (80.0-100.0) 01/15/17 03:55 MCH 30.5 pg (27.0-34.0) 01/15/17 03:55 MCHC 33.5 g/dL (33.0-35.0) 01/15/17 03:55 RDW 14.0 % (11.6-16.5) 01/15/17 03:55 Plt Count 181 X10^3/uL (150.0-450.0) 01/15/17 03:55 Plt Count Comment Adequate (ADEQUATE) 01/14/17 04:00 MPV 10.0 fL (7.4-11.0) 01/15/17 03:55 Neut % 83.1 % (42.0-75.0) H 01/15/17 03:55 Lymph % 7.5 % (21.0-51.0) L 01/15/17 03:55 [place] % 9.1 % (0.0-13.0) 01/15/17 03:55 Eos % 0.3 % (0.9-2.9) L 01/15/17 03:55 Baso % 0 % (0.2-1.0) L 01/15/17 03:55 Neut # 10.5 x10^3/uL (2.2-4.8) H 01/15/17 03:55 Lymph # 0.9 X10^3/uL (1.3-2.9) L 01/15/17 03:55 [place] # 1.2 x10^3/uL (0.3-0.8) H 01/15/17 03:55 Eos # 0.0 x10^3/uL (0.0-0.2) 01/15/17 03:55 Baso # 0.0 X10^3/uL (0.0-0.1) 01/15/17 03:55 Absolute Nucleated RBC 0.0 /100WBC 01/15/17 03:55 Total Counted 100 01/14/17 04:00 Neutrophils % (Manual) 95 % (39-76) H 01/14/17 04:00 Band Neutrophils % 2 % (0-10) 01/12/17 04:55 Lymphocytes % (Manual) 2 % (13-43) L 01/14/17 04:00 Monocytes % (Manual) 3 % (4-9) L 01/14/17 04:00 Plt Morphology Comment Normal (NORMAL) 01/14/17 04:00 RBC Morphology Normal (NORMAL) 01/14/17 04:00 INR Target Range - 01/05/17 01:30 INR 1.61 (0.8-1.3) H 01/05/17 01:30 PTT 31.5 SECONDS (22.9-36.5) 01/05/17 01:30 PTT Comment - 01/05/17 01:30 D-Dimer 355 ng/mL (0-400) 01/05/17 01:30 Sodium 143 mmol/L (136-145) 01/15/17 03:55 Corrected Sodium TNP 01/15/17 03:55 Potassium 4.8 mmol/L (3.5-5.1) 01/15/17 03:55 Chloride 107 mmol/L (98-107) 01/15/17 03:55 Carbon Dioxide 32.8 mmol/L (21-32) H 01/15/17 03:55 BUN 33 mg/dL (7-18) H 01/15/17 03:55 Creatinine 1.12 mg/dL (0.70-1.30) 01/15/17 03:55 Est GFR (MDRD) Af Amer > 60 (>60) 01/15/17 03:55 Est GFR (MDRD) Non-Af > 60 (>60) 01/15/17 03:55 Glucose 88 mg/dL (65-99) 01/15/17 03:55 Calcium 7.9 mg/dL (8.5-10.1) L 01/15/17 03:55 Corrected Calcium 9.3 mg/dL (8.5-10.1) 01/15/17 03:55 Total Bilirubin 0.70 mg/dL (0.2-1.0) 01/15/17 03:55 AST 60 Units/L (15-37) H 01/15/17 03:55 ALT 187 Units/L (12-78) H 01/15/17 03:55 Alkaline Phosphatase 95 Units/L (46-116) 01/15/17 03:55 Total Protein 5.3 g/dL (6.4-8.2) L 01/15/17 03:55 Albumin 2.3 g/dL (3.4-5.0) L 01/15/17 03:55 Globulin 3.0 g/dL (2.5-4.5) 01/15/17 03:55 Albumin/Globulin Ratio 0.8 Ratio (1.1-2.1) L 01/15/17 03:55 Specimen Type Clean catch urine 01/05/17 01:48 Urine Color Yellow (YELLOW) 01/05/17 01:48 Urine Appearance Hazy (CLEAR) 01/05/17 01:48 Urine pH 5.0 (5.0 - 8.0) 01/05/17 01:48 Ur Specific [place] 1.025 (1.000-1.030) 01/05/17 01:48 Urine Protein 2+ (NEGATIVE) 01/05/17 01:48 Urine Glucose (UA) Negative (NEGATIVE) 01/05/17 01:48 Urine Ketones Negative (NEGATIVE) 01/05/17 01:48 Urine Occult Blood 2+ (NEGATIVE) 01/05/17 01:48 Urine Nitrite Negative (NEGATIVE) 01/05/17 01:48 Urine Bilirubin 1+ (NEGATIVE) 01/05/17 01:48 Urine Urobilinogen 2+ (NORMAL) 01/05/17 01:48 Ur Leukocyte Esterase 1+ (NEGATIVE) 01/05/17 01:48 Urine RBC 0-3 /HPF (NEGATIVE) 01/05/17 01:48 Urine WBC 5-10 /HPF (NEGATIVE) 01/05/17 01:48 Ur Squamous Epith Cells Rare /HPF (NEGATIVE) 01/05/17 01:48 Urine Bacteria 1+ /HPF (NEGATIVE) 01/05/17 01:48 Urine Mucus Few /HPF (NEGATIVE) 01/05/17 01:48 Ur Culture Indicated? Yes/culture set up 01/05/17 01:48 Digoxin 0.98 ng/mL (0.9-2) 01/08/17 04:10 Theophylline < 2.0 ug/mL (10-20) L 01/09/17 19:05 - Plan (1) Pneumonia Status: Acute Qualifiers: Pneumonia type: P Aspiration pneumonia type: A Laterality: L Lung location: L Plan: CONTINUE IV ATBX,RESP THREAPY, PULMONARY TOILETING, INCREASE PO FLUIDS. PT, (2) Hemoptysis Status: Acute Plan: CONTINUE CURRENT MEDS, REPEAT AM LABS (3) Atrial fibrillation Status: Chronic Qualifiers: Atrial fibrillation type: A Plan: CONTINUE HOME MEDS, BB, LASIX, ANTI-COAG THERAPY (4) CAD (coronary artery disease) Status: Chronic Qualifiers: Coronary Disease-Associated Artery/Lesion type: C [place] vs. transplanted heart: N Associated angina: A Plan: BP AND LIPID CONTROL (5) COPD (chronic obstructive pulmonary disease) Status: Chronic Qualifiers: COPD type: C Chronic bronchitis type: C Emphysema type: E Plan: RESP THERAPY (6) Hypertension Status: Chronic Qualifiers: Hypertension type: H (7) Scrotum swelling Status: Acute Plan: diffuse edema, no redness, no pain, no hernia. elevate scrotum with rolled towel, lasix. will obtain testicular us
[2017-01-15] MEDS: ZOCOR TAB 10 MG PO SCH (20:28)
--- NOTE | 2017-01-15 20:41 | US ---
DOPPLER ULTRASOUND SCROTUM CLINICAL INDICATION: 3 days of scrotal swelling PROCEDURE: Transverse and longitudinal real-time imaging of the scrotal contents was performed with grayscale, pulsed wave and color Doppler flow. COMPARISON: None FINDINGS: Right: The right testis is normal in size measuring 4.1 x 2.8 x 2.9 cm. Blood flow to the testis is normal with arterial and venous waveforms documented. The epididymis is normal. Serpiginous structur e can be seen adjacent to the right testicle without internal flow. Left: The left testis is normal in size measuring 3.8 x 2.4 x 2.9 cm. Blood flow to the testis is no rmal with arterial and venous waveforms documented. The epididymis is normal. Serpiginous structure adjacent to the left testicle can be seen without internal flow. There appears to be a geographic hy poechoic segment of the left testicle. IMPRESSION: 1. Findings consistent with bilateral thrombosed varicoceles. Heterogeneity of echogenicity involvi ng the left testicle raises suspicion for testicular infarction. Given that blood flow is identified , this may represent a venous infarction. Reported By:
[2017-01-16] MEDS: DUONEB 0.5 MG/3 MG NEB SCH ×6 (00:37→19:59)
[2017-01-16 05:36] LABS: BASOPHILS % (AUTO) 0.3 % (0.2-1.0); EOSINOPHILS # (AUTO) 0.1 x10^3/uL (0.0-0.2); EOSINOPHILS % (AUTO) 0.4 % (0.9-2.9); HEMATOCRIT 41.1 % (42.0-54.0); HEMOGLOBIN 13.8 g/dL (13.5-18.0); LYMPHOCYTES # (AUTO) 0.8 X10^3/uL (1.3-2.9); LYMPHOCYTES % (AUTO) 6.2 % (21.0-51.0); MEAN CORPUSCULAR HEMOGLOBIN 30.4 pg (27.0-34.0); MEAN CORPUSCULAR HGB CONC 33.7 g/dL (33.0-35.0); MEAN CORPUSCULAR VOLUME 90.2 fL (80.0-100.0); MEAN PLATELET VOLUME 9.7 fL (7.4-11.0); MONOCYTES # (AUTO) 1.2 x10^3/uL (0.3-0.8); NEUTROPHILS # (AUTO) 11.5 x10^3/uL (2.2-4.8); NEUTROPHILS % (AUTO) 84.1 % (42.0-75.0); PLATELET COUNT 173 X10^3/uL (150.0-450.0); RED BLOOD COUNT 4.55 X10^6/uL (4.7-6.0); RED CELL DISTRIBUTION WIDTH 14.2 % (11.6-16.5); WHITE BLOOD COUNT 13.7 X10^3/uL (3.6-10.0)
[2017-01-16 05:37] LABS: ALANINE AMINOTRANSFERASE 139 Units/L (12-78); ALBUMIN 2.3 g/dL (3.4-5.0); ALKALINE PHOSPHATASE 95 Units/L (46-116); ASPARTATE AMINO TRANSFERASE 36 Units/L (15-37); BLOOD UREA NITROGEN 30 mg/dL (7-18); CALCIUM 8.1 mg/dL (8.5-10.1); CARBON DIOXIDE 38.2 mmol/L (21-32); CHLORIDE 103 mmol/L (98-107); COR CA(FOR HYPOALB) 9.5 mg/dL (8.5-10.1); CREATININE 1.16 mg/dL (0.70-1.30); GLUCOSE 92 mg/dL (65-99); SODIUM 144 mmol/L (136-145); TOTAL PROTEIN 5.4 g/dL (6.4-8.2); eGFR BLACK RACES > 60 (>60); eGFR NON BLACK RACES > 60 (>60)
--- NOTE | 2017-01-16 06:07 | RAD ---
HISTORY: Follow up pneumonia Study: Chest one view Comparison: January 15, 2017 Findings: The patient is status post median sternotomy and CABG. There is a pacemaker present on the left. The heart remains enlarged. No definite congestive heart failure is noted. Right pleural effusion and r ight basilar lung infiltrates are unchanged. The right upper lung field is clear. Left upper lung fi eld is clear. Persistent increased density remains in the retrocardiac area of the left lower lobe. Likely representing consolidation unchanged in appearance from the prior examination. Left pleural e ffusion is unchanged. IMPRESSION: No significant change from the prior examination Reported By:
[2017-01-16] MEDS: ROCEPHIN VIAL 1 GM 1 GM in NS 50 ML IV + SPIKE MINIBAG* 50 ML IV SCH (08:54)
[2017-01-16] MEDS: LASIX IVP SCH ×2 (08:55→20:52)
[2017-01-16] MEDS: ROBITUSSIN DM PO SCH ×4 (08:55→20:51)
[2017-01-16] MEDS: MILK OF MAGNESIA PO SCH ×2 (08:56→20:58)
[2017-01-16] MEDS: COLACE CAP 100 MG PO SCH ×2 (08:56→20:52)
[2017-01-16] MEDS: LOPRESSOR TAB 25 MG PO SCH ×2 (08:56→20:52)
[2017-01-16] MEDS: LANOXIN PO SCH (08:56)
[2017-01-16] MEDS: CALAN SR 180 MG PO SCH (08:56)
[2017-01-16] MEDS: LOTENSIN TAB 10 MG PO SCH ×2 (08:56→20:57)
[2017-01-16] MEDS: ELIQUIS PO SCH (09:02)
[2017-01-16] MEDS: LEVAQUIN PREMIX IV 500 MG 500 MG/100 ML BAG IV SCH (09:22)
[2017-01-16] MEDS: NS 1/2 1000 ML IV 1,000 ML IV SCH (09:22)
[2017-01-16] MEDS: VIBRAMYCIN 100 MG in NS 100 ML IV + SPIKE MINIBAG* 100 ML IV SCH ×2 (11:00→20:51)
--- NOTE | 2017-01-16 18:35 | PCM.PROG ---
Progress Note - Progress Note for Day of Date: 01/16/17 - Subjective Subjective: 81WM ADMITTED ON 01/05 WITH DIAGNOSIS OF PNEUMONIA. despite antibiotic therapy sensitive to sputum culture, patient's chest x-ray continued with pneumonia, increasing right lower lobe infiltrate. Patient reports improved chest congestion as well as decreased sputum production. Patient's lung bases her improved from 1 day ago. Plan to continue Lasix 40 IV twice a day. Patient also has significantly improved scrotal swelling. - Past Medical Family Social History Past Med/Fam/Surg Hx: No changes since H&P Allergies: Allergies No Known Drug Allergy Allergy (Unverified 07/28/15 17:55) - Review of Systems ROS: No change since H&P - Vital Signs and I&O's Vital Signs: Temperature 98.4 F Pulse Rate [Left Brachial] 70 Pulse Rate [Right Brachial] 70 Pulse Rate [Left Radial] 70 Pulse Rate 70 Respiratory Rate 18 Blood Pressure [Right Arm] 135/65 Blood Pressure [Left Arm] 122/58 O2 Sat by Pulse Oximetry 95 Intake and Output: Intake & Output 01/14/17 01/15/17 01/16/17 01/17/17 11:59 11:59 11:59 11:59 Intake Total 1474 1900 2960 1320 Output Total 800 2250 8325 1900 Balance 936 -396 -5045 -943 - Physical Exam Oriented: Normal Eyes: Normal Ear: Normal Nose: Normal Throat: Normal Respiratory: Diminished, Wheezes Cardiovascular: Normal. negative: Edema : Normal Auscultation: Bowel Sounds: Normal Tenderness: Normal Skin: Normal, Other (diffuse scrotal edema, without redness) Musculoskeletal: Back:Lumbar Psychiatric: Normal Mood Description: Calm Speech Pattern: Clear, Appropriate - Laboratory and Diagnostics Result Diagrams: 01/16/17 03:55 01/16/17 03:55 Labs: Laboratory WBC 13.7 X10^3/uL (3.6-10.0) H 01/16/17 03:55 RBC 4.55 X10^6/uL (4.7-6.0) L 01/16/17 03:55 Hgb 13.8 g/dL (13.5-18.0) 01/16/17 03:55 Hct 41.1 % (42.0-54.0) L 01/16/17 03:55 MCV 90.2 fL (80.0-100.0) 01/16/17 03:55 MCH 30.4 pg (27.0-34.0) 01/16/17 03:55 MCHC 33.7 g/dL (33.0-35.0) 01/16/17 03:55 RDW 14.2 % (11.6-16.5) 01/16/17 03:55 Plt Count 173 X10^3/uL (150.0-450.0) 01/16/17 03:55 Plt Count Comment Adequate (ADEQUATE) 01/14/17 04:00 MPV 9.7 fL (7.4-11.0) 01/16/17 03:55 Neut % 84.1 % (42.0-75.0) H 01/16/17 03:55 Lymph % 6.2 % (21.0-51.0) L 01/16/17 03:55 [place] % 9.0 % (0.0-13.0) 01/16/17 03:55 Eos % 0.4 % (0.9-2.9) L 01/16/17 03:55 Baso % 0.3 % (0.2-1.0) 01/16/17 03:55 Neut # 11.5 x10^3/uL (2.2-4.8) H 01/16/17 03:55 Lymph # 0.8 X10^3/uL (1.3-2.9) L 01/16/17 03:55 [place] # 1.2 x10^3/uL (0.3-0.8) H 01/16/17 03:55 Eos # 0.1 x10^3/uL (0.0-0.2) 01/16/17 03:55 Baso # 0.0 X10^3/uL (0.0-0.1) 01/16/17 03:55 Absolute Nucleated RBC 0.0 /100WBC 01/16/17 03:55 Total Counted 100 01/14/17 04:00 Neutrophils % (Manual) 95 % (39-76) H 01/14/17 04:00 Band Neutrophils % 2 % (0-10) 01/12/17 04:55 Lymphocytes % (Manual) 2 % (13-43) L 01/14/17 04:00 Monocytes % (Manual) 3 % (4-9) L 01/14/17 04:00 Plt Morphology Comment Normal (NORMAL) 01/14/17 04:00 RBC Morphology Normal (NORMAL) 01/14/17 04:00 INR Target Range - 01/05/17 01:30 INR 1.61 (0.8-1.3) H 01/05/17 01:30 PTT 31.5 SECONDS (22.9-36.5) 01/05/17 01:30 PTT Comment - 01/05/17 01:30 D-Dimer 355 ng/mL (0-400) 01/05/17 01:30 Sodium 144 mmol/L (136-145) 01/16/17 03:55 Corrected Sodium TNP 01/16/17 03:55 Potassium 4.1 mmol/L (3.5-5.1) 01/16/17 03:55 Chloride 103 mmol/L (98-107) 01/16/17 03:55 Carbon Dioxide 38.2 mmol/L (21-32) H 01/16/17 03:55 BUN 30 mg/dL (7-18) H 01/16/17 03:55 Creatinine 1.16 mg/dL (0.70-1.30) 01/16/17 03:55 Est GFR (MDRD) Af Amer > 60 (>60) 01/16/17 03:55 Est GFR (MDRD) Non-Af > 60 (>60) 01/16/17 03:55 Glucose 92 mg/dL (65-99) 01/16/17 03:55 Calcium 8.1 mg/dL (8.5-10.1) L 01/16/17 03:55 Corrected Calcium 9.5 mg/dL (8.5-10.1) 01/16/17 03:55 Total Bilirubin 0.70 mg/dL (0.2-1.0) 01/16/17 03:55 AST 36 Units/L (15-37) 01/16/17 03:55 ALT 139 Units/L (12-78) H 01/16/17 03:55 Alkaline Phosphatase 95 Units/L (46-116) 01/16/17 03:55 Total Protein 5.4 g/dL (6.4-8.2) L 01/16/17 03:55 Albumin 2.3 g/dL (3.4-5.0) L 01/16/17 03:55 Globulin 3.1 g/dL (2.5-4.5) 01/16/17 03:55 Albumin/Globulin Ratio 0.7 Ratio (1.1-2.1) L 01/16/17 03:55 Specimen Type Clean catch urine 01/05/17 01:48 Urine Color Yellow (YELLOW) 01/05/17 01:48 Urine Appearance Hazy (CLEAR) 01/05/17 01:48 Urine pH 5.0 (5.0 - 8.0) 01/05/17 01:48 Ur Specific [place] 1.025 (1.000-1.030) 01/05/17 01:48 Urine Protein 2+ (NEGATIVE) 01/05/17 01:48 Urine Glucose (UA) Negative (NEGATIVE) 01/05/17 01:48 Urine Ketones Negative (NEGATIVE) 01/05/17 01:48 Urine Occult Blood 2+ (NEGATIVE) 01/05/17 01:48 Urine Nitrite Negative (NEGATIVE) 01/05/17 01:48 Urine Bilirubin 1+ (NEGATIVE) 01/05/17 01:48 Urine Urobilinogen 2+ (NORMAL) 01/05/17 01:48 Ur Leukocyte Esterase 1+ (NEGATIVE) 01/05/17 01:48 Urine RBC 0-3 /HPF (NEGATIVE) 01/05/17 01:48 Urine WBC 5-10 /HPF (NEGATIVE) 01/05/17 01:48 Ur Squamous Epith Cells Rare /HPF (NEGATIVE) 01/05/17 01:48 Urine Bacteria 1+ /HPF (NEGATIVE) 01/05/17 01:48 Urine Mucus Few /HPF (NEGATIVE) 01/05/17 01:48 Ur Culture Indicated? Yes/culture set up 01/05/17 01:48 Digoxin 0.98 ng/mL (0.9-2) 01/08/17 04:10 Theophylline < 2.0 ug/mL (10-20) L 01/09/17 19:05 - Plan (1) Pneumonia Status: Acute Qualifiers: Pneumonia type: P Aspiration pneumonia type: A Laterality: L Lung location: L Plan: CONTINUE IV ATBX,RESP THREAPY, PULMONARY TOILETING, INCREASE PO FLUIDS. PT, (2) Hemoptysis Status: Acute Plan: CONTINUE CURRENT MEDS, REPEAT AM LABS (3) Atrial fibrillation Status: Chronic Qualifiers: Atrial fibrillation type: A Plan: CONTINUE HOME MEDS, BB, LASIX, ANTI-COAG THERAPY (4) CAD (coronary artery disease) Status: Chronic Qualifiers: Coronary Disease-Associated Artery/Lesion type: C [place] vs. transplanted heart: N Associated angina: A Plan: BP AND LIPID CONTROL (5) COPD (chronic obstructive pulmonary disease) Status: Chronic Qualifiers: COPD type: C Chronic bronchitis type: C Emphysema type: E Plan: RESP THERAPY (6) Hypertension Status: Chronic Qualifiers: Hypertension type: H (7) Scrotum swelling Status: Acute Plan: improved diffuse edema, no redness, no pain, no hernia. elevate scrotum with rolled towel, lasix
[2017-01-16] MEDS: MUCOMYST 20% 200 MG/ML NEB SCH (20:01)
[2017-01-16] MEDS: ZOCOR TAB 10 MG PO SCH (20:52)
[2017-01-17] MEDS: DUONEB 0.5 MG/3 MG NEB SCH ×4 (00:29→13:26)
[2017-01-17 05:23] LABS: BASOPHILS % (AUTO) 0.1 % (0.2-1.0); EOSINOPHILS # (AUTO) 0.1 x10^3/uL (0.0-0.2); EOSINOPHILS % (AUTO) 0.6 % (0.9-2.9); HEMATOCRIT 41.7 % (42.0-54.0); HEMOGLOBIN 13.9 g/dL (13.5-18.0); LYMPHOCYTES # (AUTO) 1.3 X10^3/uL (1.3-2.9); LYMPHOCYTES % (AUTO) 8.8 % (21.0-51.0); MEAN CORPUSCULAR HEMOGLOBIN 30.2 pg (27.0-34.0); MEAN CORPUSCULAR HGB CONC 33.5 g/dL (33.0-35.0); MEAN CORPUSCULAR VOLUME 90.4 fL (80.0-100.0); MEAN PLATELET VOLUME 9.8 fL (7.4-11.0); MONOCYTES # (AUTO) 1.5 x10^3/uL (0.3-0.8); MONOCYTES % (AUTO) 10.2 % (0.0-13.0); NEUTROPHILS # (AUTO) 11.5 x10^3/uL (2.2-4.8); NEUTROPHILS % (AUTO) 80.3 % (42.0-75.0); PLATELET COUNT 178 X10^3/uL (150.0-450.0); RED BLOOD COUNT 4.61 X10^6/uL (4.7-6.0); RED CELL DISTRIBUTION WIDTH 14.3 % (11.6-16.5); WHITE BLOOD COUNT 14.4 X10^3/uL (3.6-10.0)
[2017-01-17 05:28] LABS: ALANINE AMINOTRANSFERASE 104 Units/L (12-78); ALBUMIN 2.3 g/dL (3.4-5.0); ALKALINE PHOSPHATASE 95 Units/L (46-116); ASPARTATE AMINO TRANSFERASE 31 Units/L (15-37); BLOOD UREA NITROGEN 27 mg/dL (7-18); CALCIUM 7.9 mg/dL (8.5-10.1); CARBON DIOXIDE 37.4 mmol/L (21-32); CHLORIDE 104 mmol/L (98-107); COR CA(FOR HYPOALB) 9.3 mg/dL (8.5-10.1); CREATININE 1.12 mg/dL (0.70-1.30); GLUCOSE 102 mg/dL (65-99); SODIUM 144 mmol/L (136-145); TOTAL PROTEIN 5.4 g/dL (6.4-8.2); eGFR BLACK RACES > 60 (>60); eGFR NON BLACK RACES > 60 (>60)
--- NOTE | 2017-01-17 08:10 | RAD ---
HISTORY: Pneumonia, CHF Study: Two view chest Comparison: 01/16/2017 Findings: Persistent cardiomegaly with bilateral pleural effusions and central pulmonary vascular congestive c hanges. Sternotomy and single lead pacemaker again noted. The soft tissues are intact. No pneumothor ax. IMPRESSION: 1. Stable cardiomegaly with bilateral pleural effusions and central pulmonary vascular congestive ch anges. Reported By:
[2017-01-17] MEDS: MUCOMYST 20% 200 MG/ML NEB SCH ×2 (08:44→13:26)
[2017-01-17] MEDS: VIBRAMYCIN 100 MG in NS 100 ML IV + SPIKE MINIBAG* 100 ML IV SCH (09:25)
[2017-01-17] MEDS: LEVAQUIN PREMIX IV 500 MG 500 MG/100 ML BAG IV SCH (09:25)
[2017-01-17] MEDS: ROCEPHIN VIAL 1 GM 1 GM in NS 50 ML IV + SPIKE MINIBAG* 50 ML IV SCH (09:25)
[2017-01-17] MEDS: CALAN SR 180 MG PO SCH (09:26)
[2017-01-17] MEDS: COLACE CAP 100 MG PO SCH (09:26)
[2017-01-17] MEDS: LANOXIN PO SCH (09:26)
[2017-01-17] MEDS: ELIQUIS PO SCH (09:27)
[2017-01-17] MEDS: LOPRESSOR TAB 25 MG PO SCH (09:27)
[2017-01-17] MEDS: NS 1/2 1000 ML IV 1,000 ML IV SCH (09:27)
[2017-01-17] MEDS: MILK OF MAGNESIA PO SCH (09:27)
[2017-01-17] MEDS: ROBITUSSIN DM PO SCH ×2 (09:27→13:48)
[2017-01-17] MEDS: LOTENSIN TAB 10 MG PO SCH (13:48)
[2017-01-17 15:06] VITALS: BP 142/72
== END 2017-01-17 16:15 | disposition home or self-care (01) | DRG 178 ==
LOC: ER 01:05 → MED/SURG 03:24 → OBSVTOIN 01-07 16:00
PROVIDERS: ADMIT Internal Medicine; ATTEND Internal Medicine
DX: J15.6 Pneumonia due to other Gram-negative bacteria (principal); E86.0 Dehydration; E87.6 Hypokalemia; R53.1 Weakness; J44.1 Chronic obstructive pulmonary disease with (acute) exacerbation; N39.0 Urinary tract infection, site not specified; I10 Essential (primary) hypertension; R42 Dizziness and giddiness; K92.2 Gastrointestinal hemorrhage, unspecified; I48.91 Unspecified atrial fibrillation; I25.10 Atherosclerotic heart disease of native coronary artery without angina pectoris; N50.89 Other specified disorders of the male genital organs; I50.9 Heart failure, unspecified; R06.00 Dyspnea, unspecified
CPT/HCPCS: 36415; 71010; 71020; 71250; 71260; 76870; 80048; 80053; 80162; 80198; 81001; 85025; 85378; 85610; 85730; 87040; 87070; 87077; 87086; 87186; 87205; 94640; 94667; 94668; 94760; 96365; 96374; 96375; 99284; A4222; G0378; J0696; J1580; J1940; J1956; J2405; J2920; J3490; J7608; J7620

== ENCOUNTER → 2017-02-12 | Outpatient (CLI) | payer OTHER ==
[2017-01-17 15:06] VITALS: BP 142/72
--- NOTE | 2017-02-12 13:08 | RAD ---
HISTORY: Cough and shortness of breath Study: PA and lateral views of the chest. Comparison: 01/17/2017 Findings: Redemonstration of cardiomegaly and single lead pacemaker. No focal consolidations, pleural effusion s or pneumothorax. Osseous structures demonstrate no acute abnormality. IMPRESSION: 1. No acute cardiopulmonary process. 2. Cardiomegaly. Reported By:
== END ==
LOC: RAD 09:58
PROVIDERS: ATTEND Nurse Practitioner Family
DX: R05 Cough (principal); R06.09 Other forms of dyspnea; I50.9 Heart failure, unspecified
CPT/HCPCS: 71020

== ENCOUNTER 2017-04-28 07:59 | Emergency (ER) | payer OTHER ==
[2017-04-28 08:13] VITALS: BP 170/79; BMI 24.7
--- NOTE | 2017-04-28 08:25 | DR.GENAD ---
HPI - PCP Primary Care Physician: DIANNE RALPH - HPI Comment HPI Comment: SEE BELOW. NO ACTIVE BLEEDING CURRENTLY. - Complaint/Symptoms Chief Complaint Doctors Comments: PATIENT WOKE UP BLEEDING FROM HEALING WOUND ON SCALP. SKIN CA WAS REMOVE FROM SITE. Chief Complaint:: PT STATES " I HAD SKIN CANCER REMOVED FROM HIS HEAD 2 WEEKS AGO AND I WOKE UP THIS AM AND MY HEAD WAS BLEEDING ". - Nurses notes reviewed Nurses Notes Review: Yes - Source History Provided: Patient - Mode of Arrival Mode of Arrival: EMS - Timing Onset of Chief Complaint: 04/28/17 Came on: Suddenly - Duration Duration: Constant Duration: Hours - Severity Severity: Moderate PMH - PMH Past Medical History: Yes Past Medical History: Angina, Arthritis, CHF, COPD, Coronary Artery Disease, Dyslipidemia, Hypertension, Sleep Apnea Past Surgical History: Yes Surgical History: Abdominal Surgery, Angioplasty/Stents, CABG/Valve Surgery, Cholecystectomy, Other - Family History History of Family Medical Conditions: No Family Medical History: [place], Sudden Cardiac , Hypertension - Social History Does patient currently use any type of tobacco product: No Have you used tobacco products in the last 12 months: No Type of Tobacco Use: None Does any household member use tobacco: No Alcohol Use: None Do you use any recreational Drugs:: No Lives With: Family - infectious screening In the last 2 months have you had wt loss of >10#?: NO Have you had fever, night sweats or hemotysis?: No Have you traveled outside the country in the last 6 months?: No Isolation: Standard ROS - Review of Systems Constitutional: No Symptoms Reported Eyes: No Symptoms Reported ENTM: No Symptoms Reported Respiratoy: No Symptoms Reported Cardiovascular: No Symptoms Reported Gastrointestinal/Abdominal: No Symptoms Reported Genitourinary: No Symptoms Reported Neurological: No Symptoms Reported Musculoskeletal: Other (SCALP HEMORRHAGE) Integumentary: Other (BLEEDING FROM HEALING WOUND.) Hematologic/Lymphatic: Easy Bleeding, Easy Bruising Endocrine: No Symptoms Reported All Other Systems: Reviewed and Negative PE - Vital Signs Vitals: Temperature 98.8 F Pulse Rate 70 Respiratory Rate 22 Blood Pressure [Right Arm] 146/70 Blood Pressure [Left Arm] 142/72 Blood Pressure 170/79 O2 Sat by Pulse Oximetry 99 - General Limitations: No Limitations General Appearance: Alert - Head Head Exam: Other (HEALING FRONTAL SCALP WOUND. NO ACTIVE BLEEDING.) - Eyes Eye exam: Normal Appearance - ENT ENT Exam: Normal External Ear Exam External Ear Exam: Normal External Inspection TM/Canal Exam: Bilateral Normal Nose Exam: Normal Nose Exam Mouth Exam: Normal Inspection Throat Exam: Normal Inspection - Neck Neck Exam: Trachea Midline - Chest Chest Inspection: Symmetric Chest Wall Rise - Respiratory Respiratory Exam: Normal Lung Sounds Bilat Respiratory Exam: Bilateral Clear to Auscultation - Cardiovascular Cardiovascular Exam: Regular Rate, Normal Rhythm - Abdominal Exam Abdominal Exam: Normal Inspection - Extremities Extremities Exam: Normal Inspection - Back Back Exam: Normal Inspection - Neurologic Neurological Exam: Alert, Oriented X3 - Psychiatric Psychiatric Exam: Normal Affect, Normal Mood - Skin Skin Exam: Erythema MDM - Differential Diagnosis Differential Diagnosis: HEMORRHAGE FROM WOUND, HEALING WOUND. Course - Treatment Treatment: SEE ORDERS. WOUND DRESSING WITH ANTIBIOTIC BY NURSE IN ED. - Reevaluation 1st: Improved (NO ACTIVE WOUND BLEEDING.) - Diagnosis Discharge Problem: Healing wound, Wound dehiscence, Hemorrhage - Discharge Plan Disposition: 01 HOME, SELF-CARE Condition: Stable - Follow ups/Referrals Follow ups/Referrals: NFD,None [Primary Care Provider] - 1 day - Instructions Instructions: Wound Care, Wound Dehiscence, [id number] Additional Instructions: RETURN TO ED IF WORSE.
[2017-04-28] MEDS ORDERED: NEOSPORIN OINT TOP ONE (08:49)
[2017-04-28] MEDS ORDERED: NEOSPORIN OINT ONE (08:51)
== END 2017-04-28 09:07 | disposition home or self-care (01) ==
LOC: ER 07:59
DX: T81.31XA Disruption of external operation (surgical) wound, not elsewhere classified, initial encounter (principal)
CPT/HCPCS: 99282

== ENCOUNTER 2020-09-07 16:00 | Observation (INO) ==
--- NOTE | 2020-09-07 18:21 | RAD ---
HISTORYSOBSTUDYCHEST x-ray, 1 VIEWCOMPARISONNoneFINDINGSThe trachea is midline. The cardiac silhouette is enlarged. Prior cardiac surgery. Probable pulmonary venous congestion. Single lead of the cardiac device is directed toward the right ventricular apex..Probable COPD changes. Moderate pleural effusions are suspected. Bilateral peripheral densities in the lungs may be artifactual but could be due to pulmonary edema or atypical pneumonia.No acute bony abnormality is seen.IMPRESSIONProbable CHF with pulmonary edema and moderate pleural effusions. Given the peripheral lung densities, atypical pneumonia cannot be completely excluded. Continued x-ray follow up to document resolution is recommended.Electronically signed by: Micha Rogers (Sep 07, 2020 18:19:28)
[2020-09-07] MEDS ORDERED: DUONEB 0.5 MG/3 MG (3 mL) NEB PRN (18:37)
[2020-09-07 18:52] LABS: BASOPHILS # (AUTO) 0.1 X10^3/uL (0.0-0.1); BASOPHILS % (AUTO) 0.9 % (0.2-1.0); EOSINOPHILS # (AUTO) 0.1 x10^3/uL (0.0-0.2); EOSINOPHILS % (AUTO) 0.6 % (0.9-2.9); HEMATOCRIT 40.7 % (42.0-54.0); HEMOGLOBIN 13.8 g/dL (13.5-18.0); LYMPHOCYTES # (AUTO) 0.5 X10^3/uL (1.3-2.9); LYMPHOCYTES % (AUTO) 5.3 % (21.0-51.0); MEAN CORPUSCULAR HEMOGLOBIN 32.1 pg (27.0-34.0); MEAN CORPUSCULAR VOLUME 94.5 fL (80.0-100.0); MEAN PLATELET VOLUME 10.4 fL (7.4-11.0); MONOCYTES # (AUTO) 0.7 x10^3/uL (0.3-0.8); MONOCYTES % (AUTO) 6.8 % (0.0-13.0); NEUTROPHILS # (AUTO) 8.5 x10^3/uL (2.2-4.8); NEUTROPHILS % (AUTO) 86.4 % (42.0-75.0); PLATELET COUNT 118 X10^3/uL (150.0-450.0); RED BLOOD COUNT 4.31 X10^6/uL (4.7-6.0); RED CELL DISTRIBUTION WIDTH 15.2 % (11.6-16.5); WHITE BLOOD COUNT 9.8 X10^3/uL (3.6-10.0)
[2020-09-07 19:04] LABS: BLOOD UREA NITROGEN 20 mg/dL (7-18); CARBON DIOXIDE 35.7 mmol/L (21-32); CHLORIDE 108 mmol/L (98-107); COR NA(FOR HYPERGLY) 147 mmol/L (136-145); CREATININE 1.35 mg/dL (0.70-1.30); SODIUM 147 mmol/L (136-145); TROPONIN I < 0.02 ng/mL (0-1.5); eGFR NON BLACK RACES 54 (>60)
[2020-09-07 19:08] LABS: ALANINE AMINOTRANSFERASE 42 Units/L (12-78); ALBUMIN 3.6 g/dL (3.4-5.0); ALKALINE PHOSPHATASE 173 Units/L (46-116); ASPARTATE AMINO TRANSFERASE 27 Units/L (15-37); CKMB % 2.2 % (<4); CREATINE KINASE 175 Units/L (39-308); CREATINE KINASE MB 3.9 ng/mL (0-4.0); TOTAL PROTEIN 6.6 g/dL (6.4-8.2)
[2020-09-07] MEDS ORDERED: APRESOLINE INJ 20 MG VIAL IVP PRN (20:10)
[2020-09-07 20:14] LABS: IRON 25 ug/dL (50-175)
[2020-09-07] MEDS ORDERED: LASIX IVP ONE (20:24)
[2020-09-07 20:25] VITALS: BMI 25.7
[2020-09-07] MEDS: PROTONIX INJ 40 MG VIAL IVP SCH ×2 (21:12→21:13)
[2020-09-07] MEDS: LASIX IVP SCH (21:13)
[2020-09-07 21:33] LABS: ABG BASE EXCESS 6.5 mmol/L (-2.0-2.0)
[2020-09-07 21:36] LABS: ABG ALLEN TEST POSS; ABG HCO3 31.9 mmol/L (22-26)
[2020-09-07 23:06] LABS: BILIRUBIN,URINE NEGATIVE (NEGATIVE); BLOOD/HEMOGLOBIN,URINE NEGATIVE (NEGATIVE); GLUCOSE, URINE NEGATIVE (NEGATIVE); KETONES,URINE NEGATIVE (NEGATIVE); LEUKOCYTE ESTERASE ,URINE NEGATIVE (NEGATIVE); NITRITES,URINE NEGATIVE (NEGATIVE); PROTEIN,URINE NEGATIVE (NEGATIVE); UROBILINOGEN,URINE NORMAL (NORMAL)
[2020-09-07 23:26] LABS: APPEARANCE,URINE CLEAR (CLEAR); COLOR,URINE YELLOW (YELLOW)
[2020-09-07 23:57] LABS: CKMB % 2.3 % (<4); TROPONIN I 0.02 ng/mL (0-1.5)
[2020-09-07 23:58] LABS: CREATINE KINASE MB 4.6 ng/mL (0-4.0)
[2020-09-08 05:43] LABS: BASOPHILS # (AUTO) 0.1 X10^3/uL (0.0-0.1); BASOPHILS % (AUTO) 0.7 % (0.2-1.0); EOSINOPHILS # (AUTO) 0.1 x10^3/uL (0.0-0.2); EOSINOPHILS % (AUTO) 1.1 % (0.9-2.9); HEMATOCRIT 37.3 % (42.0-54.0); HEMOGLOBIN 12.7 g/dL (13.5-18.0); LYMPHOCYTES # (AUTO) 1.1 X10^3/uL (1.3-2.9); LYMPHOCYTES % (AUTO) 10.7 % (21.0-51.0); MEAN CORPUSCULAR VOLUME 93.9 fL (80.0-100.0); MEAN PLATELET VOLUME 10.6 fL (7.4-11.0); MONOCYTES # (AUTO) 1.3 x10^3/uL (0.3-0.8); MONOCYTES % (AUTO) 13.1 % (0.0-13.0); NEUTROPHILS # (AUTO) 7.5 x10^3/uL (2.2-4.8); NEUTROPHILS % (AUTO) 74.4 % (42.0-75.0); PLATELET COUNT 108 X10^3/uL (150.0-450.0); RED BLOOD COUNT 3.98 X10^6/uL (4.7-6.0)
[2020-09-08 05:56] LABS: ALANINE AMINOTRANSFERASE 36 Units/L (12-78); ALBUMIN 3.2 g/dL (3.4-5.0); ALKALINE PHOSPHATASE 136 Units/L (46-116); ASPARTATE AMINO TRANSFERASE 28 Units/L (15-37); BLOOD UREA NITROGEN 21 mg/dL (7-18); CALCIUM 8.8 mg/dL (8.5-10.1); CARBON DIOXIDE 34.4 mmol/L (21-32); CHLORIDE 106 mmol/L (98-107); CKMB % 1.9 % (<4); COR CA(FOR HYPOALB) 9.4 mg/dL (8.5-10.1); CREATINE KINASE 173 Units/L (39-308); CREATINE KINASE MB 3.2 ng/mL (0-4.0); CREATININE 1.24 mg/dL (0.70-1.30); SODIUM 145 mmol/L (136-145); TROPONIN I < 0.02 ng/mL (0-1.5); eGFR NON BLACK RACES 59 (>60)
[2020-09-08] MEDS: LASIX IVP SCH ×2 (09:37→20:12)
[2020-09-08] MEDS: PROTONIX INJ 40 MG VIAL IVP SCH ×2 (09:39→20:12)
[2020-09-08] MEDS: ROCEPHIN 1 GRAM IV PREMIX 1 G/50 ML IV.SOLN. IV SCH (09:39)
--- NOTE | 2020-09-08 09:55 | RAD ---
HISTORYShortness of breathSTUDYSingle-view [id number] trachea is midline. The cardiac silhouette is enlarged with a tortuous thoracic aorta . A pacing device overlying the left hemithorax is observed. Prior changes of median sternotomy are incidentally noted. Improved aeration of the right left base with resolution of prominent vascular markings. The bony thorax is unremarkable.IMPRESSIONImproved radiograph with improved aeration of the right left base as well as improved appearance of the pulmonary vasculature.Electronically signed by: RAMA HOPPER (Sep 08, 2020 09:53:47)
--- NOTE | 2020-09-08 15:01 | DR.UPDATE ---
H&P Update History and Physical Update: History and Physical reviewed and patient examined. 09/07/20 Yes with the following: Prescription drug monitoring program results: PDMP reviewed and no concerns identified H&P Reviewed: Yes Patient was examined?: Yes
[2020-09-08] MEDS: UNIPHYL TAB 400 MG 24-HR PO SCH (16:45)
[2020-09-08] MEDS: LIPITOR TAB 40 MG PO SCH (16:45)
[2020-09-08] MEDS: LANOXIN or DIGITEK PO SCH (16:45)
[2020-09-08] MEDS: CALAN SR 180 MG PO SCH (16:45)
[2020-09-08] MEDS: PLAVIX PO SCH (16:45)
[2020-09-08] MEDS: LOTENSIN TAB 10 MG PO SCH (20:12)
[2020-09-08] MEDS: LOPRESSOR TAB 25 MG PO SCH (20:12)
[2020-09-08] MEDS: ELIQUIS PO SCH (20:12)
[2020-09-08] MEDS ORDERED: PriLOSEC PO SCH (21:00)
[2020-09-09 06:11] LABS: BASOPHILS # (AUTO) 0.1 X10^3/uL (0.0-0.1); BASOPHILS % (AUTO) 0.7 % (0.2-1.0); EOSINOPHILS # (AUTO) 0.2 x10^3/uL (0.0-0.2); EOSINOPHILS % (AUTO) 2.1 % (0.9-2.9); HEMATOCRIT 39.4 % (42.0-54.0); HEMOGLOBIN 13.3 g/dL (13.5-18.0); LYMPHOCYTES # (AUTO) 1.4 X10^3/uL (1.3-2.9); LYMPHOCYTES % (AUTO) 15.2 % (21.0-51.0); MEAN CORPUSCULAR HEMOGLOBIN 31.6 pg (27.0-34.0); MEAN CORPUSCULAR HGB CONC 33.7 g/dL (33.0-35.0); MEAN CORPUSCULAR VOLUME 93.8 fL (80.0-100.0); MONOCYTES # (AUTO) 1.1 x10^3/uL (0.3-0.8); MONOCYTES % (AUTO) 12.1 % (0.0-13.0); NEUTROPHILS # (AUTO) 6.5 x10^3/uL (2.2-4.8); NEUTROPHILS % (AUTO) 69.9 % (42.0-75.0); PLATELET COUNT 123 X10^3/uL (150.0-450.0); RED CELL DISTRIBUTION WIDTH 14.7 % (11.6-16.5); WHITE BLOOD COUNT 9.4 X10^3/uL (3.6-10.0)
[2020-09-09 06:26] LABS: ALANINE AMINOTRANSFERASE 37 Units/L (12-78); ALBUMIN 3.2 g/dL (3.4-5.0); ALKALINE PHOSPHATASE 143 Units/L (46-116); ASPARTATE AMINO TRANSFERASE 29 Units/L (15-37); BLOOD UREA NITROGEN 20 mg/dL (7-18); CALCIUM 8.6 mg/dL (8.5-10.1); CARBON DIOXIDE 34.5 mmol/L (21-32); CHLORIDE 105 mmol/L (98-107); COR CA(FOR HYPOALB) 9.2 mg/dL (8.5-10.1); CREATININE 1.13 mg/dL (0.70-1.30); SODIUM 145 mmol/L (136-145); TOTAL PROTEIN 6.2 g/dL (6.4-8.2); eGFR NON BLACK RACES > 60 (>60)
[2020-09-09] MEDS: ELIQUIS PO SCH (09:06)
[2020-09-09] MEDS: ROCEPHIN 1 GRAM IV PREMIX 1 G/50 ML IV.SOLN. IV SCH (09:06)
[2020-09-09] MEDS: CALAN SR 180 MG PO SCH (09:06)
[2020-09-09] MEDS: LASIX IVP SCH (09:07)
[2020-09-09] MEDS: LANOXIN or DIGITEK PO SCH (09:07)
[2020-09-09] MEDS: UNIPHYL TAB 400 MG 24-HR PO SCH (09:07)
[2020-09-09] MEDS: PLAVIX PO SCH (09:10)
[2020-09-09] MEDS: LOTENSIN TAB 10 MG PO SCH (09:11)
[2020-09-09] MEDS: LOPRESSOR TAB 25 MG PO SCH (09:11)
[2020-09-09] MEDS: LIPITOR TAB 40 MG PO SCH (09:11)
[2020-09-09] MEDS: PROTONIX INJ 40 MG VIAL IVP SCH (09:15)
--- NOTE | 2020-09-09 11:31 | RAD ---
HISTORYDyspnea and CHF.STUDYCHEST, 1 VIEWCOMPARISONChest radiograph dated September 08, 2020.FINDINGSThe trachea is midline. The cardiac silhouette is enlarged. The patient is status post median sternotomy. There is persist central vascular congestion and changes of COPD without evidence for overt or florid CHF. No pneumothorax or large effusion is seen. There is a stable left-sided cardiac pacing device. The bony thorax is intact.IMPRESSIONAs above.Electronically signed by: BAILEE CARPENTER III (Sep 09, 2020 11:29:24)
[2020-09-09 12:24] VITALS: BP 143/65
== END 2020-09-09 15:10 | disposition home or self-care (01) ==
LOC: MED/SURG
PROVIDERS: ADMIT Internal Medicine; ATTEND Internal Medicine
DX: I50.9 Heart failure, unspecified; Z20.828 Contact with and (suspected) exposure to other viral communicable diseases; K92.2 Gastrointestinal hemorrhage, unspecified; I11.0 Hypertensive heart disease with heart failure; R06.02 Shortness of breath; J18.8 Other pneumonia, unspecified organism

== ENCOUNTER 2024-01-30 18:05 | Observation (INO) ==
[2024-01-30] MEDS ORDERED: NS 1,000 ML IV 1,000 ML ONE (18:30)
--- NOTE | 2024-01-30 18:35 | DR.DIZZY ---
HPI <Chip Vang - Last Filed: 02/06/24 08:11> Time seen Time Seen by Provider: 01/30/24 18:34 Complaint Chief Complaint Doctor Comments: 88-year male brought in for evaluation. Patient is had 4 falls today, states he becomes dizzy and falls. No true loss of consciousness. Has hit his forehead, has a bruise of the forehead. Patient is on blood thinning medication (Eliquis and Plavix), denies headache. Having some neck discomfort, but does have arthritis. Denies chest pain, shortness of breath, diaphoresis. Denies nausea, vomiting, bowel or bladder issues. No f ever or chills.. Patient has skin tears of the left elbow and the right hand region. Nurses Notes Reviewed Nurses Notes Review: Yes Source History Provided: Patient and Family Member Mode of Arrival Mode of Arrival: EMS <Gisel Weiss - Last Filed: 01/31/24 00:31> Context Stroke Symptoms: None PMH <Chip Vang - Last Filed: 02/06/24 08:11> PMH Past Medical History: Angina, Arthritis, CHF, COPD, Coronary Artery Disease, Dyslipidemia, Hypertension and Sleep Apnea Past Surgical History: Yes Surgical History: Abdominal Surgery, Angioplasty/Stents, CABG/Valve Surgery, Cholecystectomy and Other Family History Family Medical History: Cancer Social History Do you use any recreational Drugs:: No ROS <Chip Vang - Last Filed: 02/06/24 08:11> Review of Systems Constitutional: Weakness Eyes: No Symptoms Reported ENTM: No Symptoms Reported Respiratoy: No Symptoms Reported Cardiovascular: No Symptoms Reported Gastrointestinal/Abdominal: No Symptoms Reported Genitourinary: No Symptoms Reported Neurological: Weakness and Dizziness Musculoskeletal: Hip (right, with moving) Integumentary: Wound Hematologic/Lymphatic: No Symptoms Reported All Other Systems: Reviewed and Negative PE <Chip Vang - Last Filed: 02/06/24 08:11> Vital Signs Vitals: Vital Signs Temperature 97.9 F Pulse Rate 69 Pulse Rate 69 Pulse Rate 69 Pulse Rate 69 Pulse Rate 69 Pulse Rate 69 Pulse Rate 69 Pulse Rate 69 Pulse Rate 70 Pulse Rate 69 Pulse Rate 69 Pulse Rate 69 Pulse Rate 69 Pulse Rate 69 Pulse Rate 69 Pulse Rate 69 Pulse Rate 69 Pulse Rate 71 Pulse Rate 69 Pulse Rate 69 Pulse Rate 72 Pulse Rate 69 Pulse Rate 69 Pulse Rate 69 Pulse Rate 69 Pulse Rate 69 Pulse Rate 69 Pulse Rate 69 Pulse Rate 70 Respiratory Rate 18 Respiratory Rate 19 Respiratory Rate 21 Respiratory Rate 28 Respiratory Rate 31 Respiratory Rate 21 Respiratory Rate 22 Respiratory Rate 24 Respiratory Rate 18 Respiratory Rate 22 Respiratory Rate 18 Respiratory Rate 25 Respiratory Rate 20 Respiratory Rate 20 Respiratory Rate 23 Respiratory Rate 25 Respiratory Rate 21 Respiratory Rate 21 Respiratory Rate 18 Respiratory Rate 30 Respiratory Rate 18 Respiratory Rate 26 Respiratory Rate 35 Respiratory Rate 19 Respiratory Rate 19 Respiratory Rate 21 Respiratory Rate 16 Respiratory Rate 18 Respiratory Rate 28 Blood Pressure 124/55 Blood Pressure 117/56 Blood Pressure 132/59 Blood Pressure 133/61 Blood Pressure 135/62 Blood Pressure 121/58 Blood Pressure 138/65 Blood Pressure 124/61 Blood Pressure 102/58 Blood Pressure 121/61 Blood Pressure 114/59 Blood Pressure 103/59 Blood Pressure 106/57 O2 Sat by Pulse Oximetry 99 O2 Sat by Pulse Oximetry 93 O2 Sat by Pulse Oximetry 95 O2 Sat by Pulse Oximetry 96 O2 Sat by Pulse Oximetry 97 O2 Sat by Pulse Oximetry 99 O2 Sat by Pulse Oximetry 97 O2 Sat by Pulse Oximetry 100 O2 Sat by Pulse Oximetry 94 O2 Sat by Pulse Oximetry 100 O2 Sat by Pulse Oximetry 96 O2 Sat by Pulse Oximetry 100 O2 Sat by Pulse Oximetry 99 O2 Sat by Pulse Oximetry 100 O2 Sat by Pulse Oximetry 98 O2 Sat by Pulse Oximetry 99 O2 Sat by Pulse Oximetry 97 O2 Sat by Pulse Oximetry 96 O2 Sat by Pulse Oximetry 100 O2 Sat by Pulse Oximetry 100 O2 Sat by Pulse Oximetry 100 O2 Sat by Pulse Oximetry 99 O2 Sat by Pulse Oximetry 98 O2 Sat by Pulse Oximetry 100 O2 Sat by Pulse Oximetry 100 O2 Sat by Pulse Oximetry 100 O2 Sat by Pulse Oximetry 99 O2 Sat by Pulse Oximetry 99 O2 Sat by Pulse Oximetry 98 General General Appearance: Alert and In No Apparent Distress Head Head Exam: Other (+ left forehead hematoma. No open wound) Eyes Eye exam: PERRL and EOMI ENT ENT Exam: Normal Exam, Normal Oropharynx and TM's Normal Bilaterally Neck Neck Exam: Other (some discomfort with ROM.); negative Tenderness Respiratory Respiratory Exam: Normal Lung Sounds Bilat; negative Accessory Muscle Use or Respiratory Distress Cardiovascular Cardiovascular Exam: Regular Rate, Normal Rhythm and Normal Heart Sounds Abdominal Exam Abdominal Exam: Normal Bowel Sounds and Soft; negative Tenderness Extremeties Extremities Exam: Edema (mild bilateral lower exts. + R hip pain with ROM, hard to lift off bed, due to pain. ) Neurologic Neurological Exam: Alert, Oriented X3 and CN II-XII Intact; negative Motor Sensory Deficit Skin Skin Exam: Warm, Dry and Other (+ skin tears R olecranon, L first web space) <Gisel Weiss - Last Filed: 01/31/24 00:31> Vital Signs Vitals: Vital Signs Temperature 97.9 F Pulse Rate 69 Pulse Rate 69 Pulse Rate 69 Pulse Rate 69 Pulse Rate 69 Pulse Rate 69 Pulse Rate 69 Pulse Rate 69 Pulse Rate 70 Pulse Rate 69 Pulse Rate 69 Pulse Rate 69 Pulse Rate 69 Pulse Rate 69 Pulse Rate 69 Pulse Rate 69 Pulse Rate 69 Pulse Rate 71 Pulse Rate 69 Pulse Rate 69 Pulse Rate 72 Pulse Rate 69 Pulse Rate 69 Pulse Rate 69 Pulse Rate 69 Pulse Rate 69 Pulse Rate 69 Pulse Rate 69 Pulse Rate 70 Respiratory Rate 18 Respiratory Rate 19 Respiratory Rate 21 Respiratory Rate 28 Respiratory Rate 31 Respiratory Rate 21 Respiratory Rate 22 Respiratory Rate 24 Respiratory Rate 18 Respiratory Rate 22 Respiratory Rate 18 Respiratory Rate 25 Respiratory Rate 20 Respiratory Rate 20 Respiratory Rate 23 Respiratory Rate 25 Respiratory Rate 21 Respiratory Rate 21 Respiratory Rate 18 Respiratory Rate 30 Respiratory Rate 18 Respiratory Rate 26 Respiratory Rate 35 Respiratory Rate 19 Respiratory Rate 19 Respiratory Rate 21 Respiratory Rate 16 Respiratory Rate 18 Respiratory Rate 28 Blood Pressure 124/55 Blood Pressure 117/56 Blood Pressure 132/59 Blood Pressure 133/61 Blood Pressure 135/62 Blood Pressure 121/58 Blood Pressure 138/65 Blood Pressure 124/61 Blood Pressure 102/58 Blood Pressure 121/61 Blood Pressure 114/59 Blood Pressure 103/59 Blood Pressure 106/57 O2 Sat by Pulse Oximetry 99 O2 Sat by Pulse Oximetry 93 O2 Sat by Pulse Oximetry 95 O2 Sat by Pulse Oximetry 96 O2 Sat by Pulse Oximetry 97 O2 Sat by Pulse Oximetry 99 O2 Sat by Pulse Oximetry 97 O2 Sat by Pulse Oximetry 100 O2 Sat by Pulse Oximetry 94 O2 Sat by Pulse Oximetry 100 O2 Sat by Pulse Oximetry 96 O2 Sat by Pulse Oximetry 100 O2 Sat by Pulse Oximetry 99 O2 Sat by Pulse Oximetry 100 O2 Sat by Pulse Oximetry 98 O2 Sat by Pulse Oximetry 99 O2 Sat by Pulse Oximetry 97 O2 Sat by Pulse Oximetry 96 O2 Sat by Pulse Oximetry 100 O2 Sat by Pulse Oximetry 100 O2 Sat by Pulse Oximetry 100 O2 Sat by Pulse Oximetry 99 O2 Sat by Pulse Oximetry 98 O2 Sat by Pulse Oximetry 100 O2 Sat by Pulse Oximetry 100 O2 Sat by Pulse Oximetry 100 O2 Sat by Pulse Oximetry 99 O2 Sat by Pulse Oximetry 99 O2 Sat by Pulse Oximetry 98 COURSE <Chip Vang - Last Filed: 02/06/24 08:11> Treatment Treatment: 88-year male with recurrent falls today. Awake, alert, no distress. Hit the left forehead, is on blood thinning medication. Will obtain CTs of the head and cervical spine. Workup initiated. <Gisel Weiss - Last Filed: 01/31/24 00:31> Treatment Treatment: 88-year male with recurrent falls today. Awake, alert, no distress. Hit the left forehead, is on blood thinning medication. Will obtain CTs of the head and cervical spine. Workup initiated. Patient's brain CT w/o contrast did not reveal an intracranial abnormality,cervical spine CT w/o contrast di not reveal fx or subluxation,Rt hip xray did not reveal a fx or dislocation,CXR reveal hyperinflation.Patient has a h/o renal failure creat 1.56 in 10/11/23,his BUN/creat is 85/2.07.Patient will be given NS @ 80ml/hr iv for dehydration. Patient has h/o CAD and Afib. His Ekg revealed ventricular paced rhythma and his troponin #1/#2 were 41.2/39.9 respectively no ischemia.Patient does not have 02 at home and was placed on 2L 02 by the FINISH PHOTOGRAPHER enroute to the ED. Patient takes digoxin and has a dig level of 1.91. Discussed case with Dr Patton. Dr Patton will admit Patient to his service for further evaluation. ROR <Chip Vang - Last Filed: 02/06/24 08:11> Labs Reviewed Laboratory Results Reviewed?: Yes 02/06/24 05:17 02/06/24 05:17 Laboratory: WBC 4.8 X10^3/uL (3.6-10.0) 01/30/24 18:18 RBC 3.43 X10^6/uL (4.7-6.0) L 01/30/24 18:18 Hgb 11.1 g/dL (13.5-18.0) L 01/30/24 18:18 Hct 33.7 % (42.0-54.0) L 01/30/24 18:18 MCV 98.2 fL (80.0-100.0) 01/30/24 18:18 MCH 32.5 pg (27.0-34.0) 01/30/24 18:18 MCHC 33.1 g/dL (33.0-35.0) 01/30/24 18:18 RDW 15.3 % (11.6-16.5) 01/30/24 18:18 Plt Count 89 X10^3/uL (150.0-450.0) L 01/30/24 18:18 MPV 11.3 fL (7.4-11.0) H 01/30/24 18:18 Neut % (Auto) 72.0 % (42.0-75.0) 01/30/24 18:18 Lymph % (Auto) 10.7 % (21.0-51.0) L 01/30/24 18:18 Rice % (Auto) 16.2 % (0.0-13.0) H 01/30/24 18:18 Eos % (Auto) 0.2 % (0.9-2.9) L 01/30/24 18:18 Baso % (Auto) 0.9 % (0.2-1.0) 01/30/24 18:18 Neut # (Auto) 3.4 x10^3/uL (2.2-4.8) 01/30/24 18:18 Lymph # (Auto) 0.5 X10^3/uL (1.3-2.9) L 01/30/24 18:18 Rice # (Auto) 0.8 x10^3/uL (0.3-0.8) 01/30/24 18:18 Eos # (Auto) 0.0 x10^3/uL (0.0-0.2) 01/30/24 18:18 Baso # (Auto) 0.0 X10^3/uL (0.0-0.1) 01/30/24 18:18 Absolute Nucleated RBC 0.7 /100WBC 01/30/24 18:18 Sodium 147 mmol/L (136-145) H 01/30/24 18:18 Corrected Sodium 147 mmol/L (136-145) H 01/30/24 18:18 Potassium 4.7 mmol/L (3.5-5.1) 01/30/24 18:18 Chloride 109 mmol/L (98-107) H 01/30/24 18:18 Carbon Dioxide 31.9 mmol/L (21-32) 01/30/24 18:18 BUN 85 mg/dL (7-18) H 01/30/24 18:18 Creatinine 2.07 mg/dL (0.70-1.30) H 01/30/24 18:18 Est GFR (MDRD) Af Amer 39 (>60) L 01/30/24 18:18 Est GFR (MDRD) Non-Af 32 (>60) L 01/30/24 18:18 Glucose 114 mg/dL (65-99) H 01/30/24 18:18 Calcium 8.6 mg/dL (8.5-10.1) 01/30/24 18:18 Corrected Calcium TNP 01/30/24 18:18 Total Bilirubin 1.00 mg/dL (0.2-1.0) 01/30/24 18:18 AST 33 Units/L (15-37) 01/30/24 18:18 ALT 39 Units/L (12-78) 01/30/24 18:18 Alkaline Phosphatase 120 Units/L (46-116) H 01/30/24 18:18 Creatine Kinase 77 Units/L (39-308) 01/30/24 18:18 Troponin I High Sens 39.9 ng/L (4.0-60.0) 01/30/24 20:45 B-Natriuretic Peptide 223 pg/mL (0-79) H 01/30/24 18:18 Total Protein 7.1 g/dL (6.4-8.2) 01/30/24 18:18 Albumin 3.5 g/dL (3.4-5.0) 01/30/24 18:18 Globulin 3.6 g/dL (2.5-4.5) 01/30/24 18:18 Albumin/Globulin Ratio 1.0 Ratio (1.1-2.1) L 01/30/24 18:18 Lipase 38 Units/L (16-77) 01/30/24 18:18 Specimen Type Clean catch urine 01/30/24 20:22 Urine Color Dark yellow (YELLOW) 01/30/24 20:22 Urine Appearance Slightly hazy (CLEAR) 01/30/24 20: Urine pH 5.0 (5.0 - 8.0) 01/30/24 20:22 Ur Specific [place] 1.025 (1.000-1.030) 01/30/24 20:22 Urine Protein 2+ (NEGATIVE) 01/30/24 20:22 Urine Glucose (UA) Negative (NEGATIVE) 01/30/24 20: Urine Ketones Negative (NEGATIVE) 01/30/24 20: Urine Blood Negative (NEGATIVE) 01/30/24 20: Urine Nitrite Negative (NEGATIVE) 01/30/24 20: Urine Bilirubin Negative (NEGATIVE) 01/30/24 20: Urine Urobilinogen Normal (NORMAL) 01/30/24 20: Ur Leukocyte Esterase Negative (NEGATIVE) 01/30/24 20: Urine RBC 0-2 /HPF (0-3) 01/30/24 20:22 Urine WBC None seen /HPF (0-5) 01/30/24 20:22 Ur Squamous Epith Cells Few /HPF (NEGATIVE) 01/30/24 20: Amorphous Sediment 1+ /HPF (NEGATIVE) 01/30/24 20: Urine Bacteria 1+ /HPF (NEGATIVE) 01/30/24 20:22 Hyaline Casts Few /LPF (NEGATIVE) 01/30/24 20: Coarse Granular Casts Few /HPF (NEGATIVE) 01/30/24 20:22 Urine Mucus Few /HPF (NEGATIVE) 01/30/24 20:22 Ur Culture Indicated? No/not indicated 01/30/24 20: Digoxin 1.91 ng/mL (0.9-2) 01/30/24 20:45 EKG Rate: 70 [place]: LAD Rhythm: Paced (Ventricular) <Gisel Weiss - Last Filed: 01/31/24 00:31> Labs Reviewed Laboratory: WBC 4.8 X10^3/uL (3.6-10.0) 01/30/24 18:18 RBC 3.43 X10^6/uL (4.7-6.0) L 01/30/24 18:18 Hgb 11.1 g/dL (13.5-18.0) L 01/30/24 18:18 Hct 33.7 % (42.0-54.0) L 01/30/24 18:18 MCV 98.2 fL (80.0-100.0) 01/30/24 18:18 MCH 32.5 pg (27.0-34.0) 01/30/24 18:18 MCHC 33.1 g/dL (33.0-35.0) 01/30/24 18:18 RDW 15.3 % (11.6-16.5) 01/30/24 18:18 Plt Count 89 X10^3/uL (150.0-450.0) L 01/30/24 18:18 MPV 11.3 fL (7.4-11.0) H 01/30/24 18:18 Neut % (Auto) 72.0 % (42.0-75.0) 01/30/24 18:18 Lymph % (Auto) 10.7 % (21.0-51.0) L 01/30/24 18:18 Rice % (Auto) 16.2 % (0.0-13.0) H 01/30/24 18:18 Eos % (Auto) 0.2 % (0.9-2.9) L 01/30/24 18:18 Baso % (Auto) 0.9 % (0.2-1.0) 01/30/24 18:18 Neut # (Auto) 3.4 x10^3/uL (2.2-4.8) 01/30/24 18:18 Lymph # (Auto) 0.5 X10^3/uL (1.3-2.9) L 01/30/24 18:18 Rice # (Auto) 0.8 x10^3/uL (0.3-0.8) 01/30/24 18:18 Eos # (Auto) 0.0 x10^3/uL (0.0-0.2) 01/30/24 18:18 Baso # (Auto) 0.0 X10^3/uL (0.0-0.1) 01/30/24 18:18 Absolute Nucleated RBC 0.7 /100WBC 01/30/24 18:18 Sodium 147 mmol/L (136-145) H 01/30/24 18:18 Corrected Sodium 147 mmol/L (136-145) H 01/30/24 18:18 Potassium 4.7 mmol/L (3.5-5.1) 01/30/24 18:18 Chloride 109 mmol/L (98-107) H 01/30/24 18:18 Carbon Dioxide 31.9 mmol/L (21-32) 01/30/24 18:18 BUN 85 mg/dL (7-18) H 01/30/24 18:18 Creatinine 2.07 mg/dL (0.70-1.30) H 01/30/24 18:18 Est GFR (MDRD) Af Amer 39 (>60) L 01/30/24 18:18 Est GFR (MDRD) Non-Af 32 (>60) L 01/30/24 18:18 Glucose 114 mg/dL (65-99) H 01/30/24 18:18 Calcium 8.6 mg/dL (8.5-10.1) 01/30/24 18:18 Corrected Calcium TNP 01/30/24 18:18 Total Bilirubin 1.00 mg/dL (0.2-1.0) 01/30/24 18:18 AST 33 Units/L (15-37) 01/30/24 18:18 ALT 39 Units/L (12-78) 01/30/24 18:18 Alkaline Phosphatase 120 Units/L (46-116) H 01/30/24 18:18 Creatine Kinase 77 Units/L (39-308) 01/30/24 18:18 Troponin I High Sens 39.9 ng/L (4.0-60.0) 01/30/24 20:45 B-Natriuretic Peptide 223 pg/mL (0-79) H 01/30/24 18:18 Total Protein 7.1 g/dL (6.4-8.2) 01/30/24 18:18 Albumin 3.5 g/dL (3.4-5.0) 01/30/24 18:18 Globulin 3.6 g/dL (2.5-4.5) 01/30/24 18:18 Albumin/Globulin Ratio 1.0 Ratio (1.1-2.1) L 01/30/24 18:18 Lipase 38 Units/L (16-77) 01/30/24 18:18 Specimen Type Clean catch urine 01/30/24 20:22 Urine Color Dark yellow (YELLOW) 01/30/24 20:22 Urine Appearance Slightly hazy (CLEAR) 01/30/24 20:22 Urine pH 5.0 (5.0 - 8.0) 01/30/24 20:22 Ur Specific [place] 1.025 (1.000-1.030) 01/30/24 20:22 Urine Protein 2+ (NEGATIVE) 01/30/24 20:22 Urine Glucose (UA) Negative (NEGATIVE) 01/30/24 20: Urine Ketones Negative (NEGATIVE) 01/30/24 20: Urine Blood Negative (NEGATIVE) 01/30/24 20: Urine Nitrite Negative (NEGATIVE) 01/30/24 20: Urine Bilirubin Negative (NEGATIVE) 01/30/24 20: Urine Urobilinogen Normal (NORMAL) 01/30/24 20:22 Ur Leukocyte Esterase Negative (NEGATIVE) 01/30/24 20:22 Urine RBC 0-2 /HPF (0-3) 01/30/24 20:22 Urine WBC None seen /HPF (0-5) 01/30/24 20:22 Ur Squamous Epith Cells Few /HPF (NEGATIVE) 01/30/24 20:22 Amorphous Sediment 1+ /HPF (NEGATIVE) 01/30/24 20:22 Urine Bacteria 1+ /HPF (NEGATIVE) 01/30/24 20:22 Hyaline Casts Few /LPF (NEGATIVE) 01/30/24 20:22 Coarse Granular Casts Few /HPF (NEGATIVE) 01/30/24 20:22 Urine Mucus Few /HPF (NEGATIVE) 01/30/24 20:22 Ur Culture Indicated? No/not indicated 01/30/24 20: Digoxin 1.91 ng/mL (0.9-2) 01/30/24 20:45 Opioid <Chip Vang - Last Filed: 02/06/24 08:11> Opioid Risk Tool Age (Erick box if 16-45): No History of Preadolescent Sexual Abuse: No Total: 0 Total Score Risk Category: Low Risk Copyright: Pal APPIAH predicting aberrant behaviors <Gisel Weiss - Last Filed: 01/31/24 00:31> Opioid Risk Tool Total: 0 Total Score Risk Category: Low Risk Discharge Plan Diagnosis Discharge Problem: Dehydration, COPD exacerbation Discharge Plan Patient Disposition: 09 ADMITTED INPATIENT Condition: Stable
[2024-01-30 18:49] VITALS: BMI 24.7
[2024-01-30] MEDS: NS 500 ML IV 500 ML IV ONE (18:50)
--- NOTE | 2024-01-30 18:56 | EKG ---
Test Reason : falling Blood Pressure : */* mmHG Vent. Rate : 70 BPM Atrial Rate : 70 BPM P-R Int : * ms QRS Dur : 154 ms QT Int : 412 ms P-R-T Axes : 0 -71 105 degrees QTc Int : 444 ms Ventricular-paced rhythm Abnormal ECG No previous ECGs available Confirmed by Miguel Driscoll MD ([id number]) on 01/31/2024 7:38:16 AM Referred By: Confirmed By: Miguel Driscoll MD
[2024-01-30 19:01] LABS: BASOPHILS % (AUTO) 0.9 % (0.2-1.0); EOSINOPHILS % (AUTO) 0.2 % (0.9-2.9); HEMATOCRIT 33.7 % (42.0-54.0); HEMOGLOBIN 11.1 g/dL (13.5-18.0); LYMPHOCYTES # (AUTO) 0.5 X10^3/uL (1.3-2.9); LYMPHOCYTES % (AUTO) 10.7 % (21.0-51.0); MEAN CORPUSCULAR HEMOGLOBIN 32.5 pg (27.0-34.0); MEAN CORPUSCULAR HGB CONC 33.1 g/dL (33.0-35.0); MEAN CORPUSCULAR VOLUME 98.2 fL (80.0-100.0); MEAN PLATELET VOLUME 11.3 fL (7.4-11.0); MONOCYTES # (AUTO) 0.8 x10^3/uL (0.3-0.8); MONOCYTES % (AUTO) 16.2 % (0.0-13.0); NEUTROPHILS # (AUTO) 3.4 x10^3/uL (2.2-4.8); PLATELET COUNT 89 X10^3/uL (150.0-450.0); RED BLOOD COUNT 3.43 X10^6/uL (4.7-6.0); RED CELL DISTRIBUTION WIDTH 15.3 % (11.6-16.5); WHITE BLOOD COUNT 4.8 X10^3/uL (3.6-10.0)
[2024-01-30 19:14] LABS: ALANINE AMINOTRANSFERASE 39 Units/L (12-78); ALBUMIN 3.5 g/dL (3.4-5.0); ALKALINE PHOSPHATASE 120 Units/L (46-116); ASPARTATE AMINO TRANSFERASE 33 Units/L (15-37); BLOOD UREA NITROGEN 85 mg/dL (7-18); CALCIUM 8.6 mg/dL (8.5-10.1); CARBON DIOXIDE 31.9 mmol/L (21-32); CHLORIDE 109 mmol/L (98-107); COR NA(FOR HYPERGLY) 147 mmol/L (136-145); CREATINE KINASE 77 Units/L (39-308); CREATININE 2.07 mg/dL (0.70-1.30); GLUCOSE 114 mg/dL (65-99); LIPASE 38 Units/L (16-77); POTASSIUM 4.7 mmol/L (3.5-5.1); SODIUM 147 mmol/L (136-145); TOTAL PROTEIN 7.1 g/dL (6.4-8.2); eGFR NON BLACK RACES 32 (>60)
--- NOTE | 2024-01-30 19:55 | CT ---
EXAM:BRAIN W/O CONHISTORY:FALL, HIT FOREHEAD, LACERATION, BLOOD THINNER ;COMPARISON:None.TECHNIQUE:Multiple axial images of the head were performed from the skullbase to the vertex using standard departmental protocol. Sagittal and coronal reformatted images were performed. Dose reduction techniques including Automated Exposure Control (AEC) and adjustment of mA and kV were utilized.FINDINGS:No hemorrhage or midline shift. Pichardo-white matter differentiation maintained. Mild atrophy and chronic small vessel ischemic change.Ventricles and cisterns are appropriate.Visualized sinuses are clear. Calvarium unremarkable. No evidence for mass or mass effect by noncontrast CT.IMPRESSION:Mild atrophy and chronic small-vessel ischemic change with no acute intracranial findings. MRI is more sensitive for acute infarct.THIS IS AN ELECTRONICALLY VERIFIED FINAL REPORT01/30/2024 7:50 PM - Electronically signed by Uriel Weinstein MD
[2024-01-30 20:30] LABS: BILIRUBIN,URINE NEGATIVE (NEGATIVE); BLOOD/HEMOGLOBIN,URINE NEGATIVE (NEGATIVE); GLUCOSE, URINE NEGATIVE (NEGATIVE); KETONES,URINE NEGATIVE (NEGATIVE); LEUKOCYTE ESTERASE ,URINE NEGATIVE (NEGATIVE); NITRITES,URINE NEGATIVE (NEGATIVE); PROTEIN,URINE 2+ (NEGATIVE); UROBILINOGEN,URINE NORMAL (NORMAL)
[2024-01-30 20:40] LABS: APPEARANCE,URINE SLIGHTLY HAZY (CLEAR); COLOR,URINE DARK YELLOW (YELLOW)
[2024-01-30 20:41] LABS: BACTERIA,URINE 1+ /HPF (NEGATIVE); COARSE GRANULAR CASTS,URINE FEW /HPF (NEGATIVE); HYALINE CASTS, URINE FEW /LPF (NEGATIVE); RBC,URINE 0-2 /HPF (0-3); SQUAMOUS EPITHELIAL CELL,UR FEW /HPF (NEGATIVE)
--- NOTE | 2024-01-30 21:07 | EKG ---
Test Reason : fall Blood Pressure : */* mmHG Vent. Rate : 73 BPM Atrial Rate : 73 BPM P-R Int : * ms QRS Dur : 164 ms QT Int : 402 ms P-R-T Axes : * -75 111 degrees QTc Int : 442 ms Ventricular-paced rhythm Abnormal ECG When compared with ECG of 30-JAN-2024 18:53, (Unconfirmed) Vent. rate has increased BY 3 BPM Confirmed by Miguel Driscoll MD ([id number]) on 01/31/2024 7:38:12 AM Referred By: Confirmed By: Miguel Driscoll MD
--- NOTE | 2024-01-30 23:15 | CT ---
EXAM:CT CERVICAL SPINE WITHOUT IV CONTRASTHISTORY:S/P FALL;COMPARISON:NoneTECHNIQUE:Axial images were acquired through the cervical spine without IV contrast. sagittal and coronal reformatted images were provided. All images reviewed in a variety of windows and levels.RADIATION REDUCTION TECHNIQUE: Automated exposure control, Adjustment of the mA and/or kV according to patient size, or iterative reconstruction techniques were used.FINDINGS:Please note that lack of IV contrast limits evaluation of soft tissue structures and vascular detail.There is no evidence of an acute osseous fracture or subluxation.The skull base is intact.Mastoid air cells are well-aerated.The visualized portions of the paraspinous muscles are unremarkable.There are no abnormal areas of increased attenuation within the spinal canal to suggest an epidural hematoma.The visualized lung apices demonstrates emphysematous changes.Severe multilevel degenerative changes are seen throughout the cervical spine most notable at the C5-C6 and C6-C7 level.There are no obvious abnormal masses seen within the visualized soft tissues of the neck.IMPRESSION:1. THERE IS NO EVIDENCE OF ACUTE FRACTURE OR SUBLUXATIONTHIS IS AN ELECTRONICALLY VERIFIED FINAL REPORT01/30/2024 11:08 PM - Electronically signed by Pool Wilburn MD
[2024-01-31] MEDS: PROVENTIL NEB TX 0.083% 2.5MG/ 3ML NEB PRN (00:43)
[2024-01-31] MEDS: DUONEB 0.5 MG/3 MG (3 mL) NEB SCH (01:26)
[2024-01-31] MEDS: NS 1,000 ML IV 1,000 ML IV SCH (01:48)
[2024-01-31] MEDS: TESSALON PERLES PO SCH (05:36)
[2024-01-31] MEDS ORDERED: Atrovent NEB TX 0.02% NEB SCH (06:00)
[2024-01-31 06:10] LABS: BASOPHILS % (AUTO) 0.6 % (0.2-1.0); EOSINOPHILS % (AUTO) 0.1 % (0.9-2.9); HEMATOCRIT 30.4 % (42.0-54.0); HEMOGLOBIN 10.2 g/dL (13.5-18.0); LYMPHOCYTES # (AUTO) 0.7 X10^3/uL (1.3-2.9); MEAN CORPUSCULAR HEMOGLOBIN 32.7 pg (27.0-34.0); MEAN CORPUSCULAR HGB CONC 33.5 g/dL (33.0-35.0); MEAN CORPUSCULAR VOLUME 97.5 fL (80.0-100.0); MEAN PLATELET VOLUME 10.6 fL (7.4-11.0); MONOCYTES # (AUTO) 0.8 x10^3/uL (0.3-0.8); MONOCYTES % (AUTO) 16.1 % (0.0-13.0); NEUTROPHILS # (AUTO) 3.6 x10^3/uL (2.2-4.8); NEUTROPHILS % (AUTO) 70.2 % (42.0-75.0); PLATELET COUNT 74 X10^3/uL (150.0-450.0); RED BLOOD COUNT 3.12 X10^6/uL (4.7-6.0); RED CELL DISTRIBUTION WIDTH 15.4 % (11.6-16.5); WHITE BLOOD COUNT 5.1 X10^3/uL (3.6-10.0)
[2024-01-31 06:26] LABS: ALANINE AMINOTRANSFERASE 30 Units/L (12-78); ALKALINE PHOSPHATASE 100 Units/L (46-116); ASPARTATE AMINO TRANSFERASE 28 Units/L (15-37); BLOOD UREA NITROGEN 84 mg/dL (7-18); CALCIUM 8.3 mg/dL (8.5-10.1); CARBON DIOXIDE 30.6 mmol/L (21-32); CHLORIDE 108 mmol/L (98-107); COR CA(FOR HYPOALB) 9.1 mg/dL (8.5-10.1); CREATININE 1.84 mg/dL (0.70-1.30); GLUCOSE 96 mg/dL (65-99); POTASSIUM 4.4 mmol/L (3.5-5.1); SODIUM 145 mmol/L (136-145); eGFR NON BLACK RACES 37 (>60)
--- NOTE | 2024-01-31 06:32 | RAD ---
EXAM:HIP, RIGHT two-viewHISTORY:FALL, PAIN WITH MOVEMENT ;COMPARISON:NoneFINDINGS:The pelvic ring is intact. No acute fracture or dislocation of the hip. Frog leg views of the hip demonstrate no evidence for fracture. No significant hip arthrosis.IMPRESSION:No acute fracture or dislocation.THIS IS AN ELECTRONICALLY VERIFIED FINAL REPORT01/31/2024 6:29 AM - Electronically signed by Dami Villanueva MD
--- NOTE | 2024-01-31 06:33 | RAD ---
EXAM:CHEST, 1 VIEWHISTORY:S/P FALL, PAIN WITH MOVING, WHEEZING ;COMPARISON:10/11/2023FINDINGS:The cardiomediastinal silhouette is stable. Similar post sternotomy changes. Left-sided pacer and pacer wires unchanged.Chronic appearing interstitial changes in the lungs. No acute airspace disease. No pneumothorax or effusion.No acute osseous abnormality.IMPRESSION:No acute cardiopulmonary disease.THIS IS AN ELECTRONICALLY VERIFIED FINAL REPORT01/31/2024 6:30 AM - Electronically signed by Dami Villanueva MD
[2024-01-31] MEDS ORDERED: PULMICORT NEB TX 0.5 MG NEB ONE (07:00)
[2024-01-31] MEDS ORDERED: BENAZEPRIL 20 MG PO SCH (09:00)
[2024-01-31] MEDS ORDERED: HYDROCHLOROTHIAZIDE 12.5 MG CAP PO SCH (09:00)
[2024-01-31] MEDS: PLAVIX PO SCH (09:03)
[2024-01-31] MEDS: COREG TAB 25 MG PO SCH (09:03)
[2024-01-31] MEDS: BACTRIM DS TAB PO SCH (09:03)
[2024-01-31] MEDS: UNIPHYL TAB 400 MG 24-HR PO SCH (09:04)
[2024-01-31] MEDS: LIPITOR TAB 40 MG PO SCH (09:05)
[2024-01-31] MEDS: PriLOSEC PO SCH (09:05)
[2024-01-31] MEDS: ELIQUIS PO SCH (09:05)
[2024-01-31] MEDS: LOTENSIN TAB 10 MG PO SCH (09:07)
[2024-01-31] MEDS: PULMICORT NEB TX 0.5 MG NEB SCH (09:32)
[2024-01-31] MEDS: ROCEPHIN VIAL 1 GRAM 1 G in NS 100 ML IV 100 ML IV SCH (10:06)
--- NOTE | 2024-01-31 12:31 | RAD ---
EXAM:CHEST x-ray, PA/LAT ADULTHISTORY:COPD -COMPARISON:X-ray 01/30/2024FINDINGS:Single lead of the cardiac device is directed towards the right ventricular apex. Origin is probably normal in size, improved from prior study. Lungs appear hyperinflated suggesting COPD. No pneumothorax, focal infiltrate, or pleural effusion is seen.IMPRESSION:Resolution of CHF appearance.Persistent COPD.THIS IS AN ELECTRONICALLY VERIFIED FINAL REPORT01/31/2024 12:28 PM - Electronically signed by Micha Rogers MD
--- NOTE | 2024-01-31 12:53 | CT ---
EXAM: CT pelvis without IV contrast HISTORY: Fall - COMPARISON: X-ray 01/30/2024 TECHNIQUE: MRI of the pelvis without IV contrast is performed using standard sequences in multiple planes. FINDINGS: Likely benign bone islands are seen in the left femoral head, sacrum, and both iliac bones. There is coarsening of trabecula in the right ilium, ischium, and pubic bones that is concerning for possible Paget's disease. No widening of the symphysis pubis or SI joints is seen. No pelvic or hip fracture is seen. Mild lo w-density free pelvic fluid is seen. There is likely a small left inguinal hernia containing fat. IMPRESSION: No pelvic fracture is seen. Probable small left inguinal hernia is present. Possible changes of Paget's disease are seen in the right hemipelvis. THIS IS AN ELECTRONICALLY VERIFIED FINAL REPORT 01/31/2024 12:49 PM - Electronically signed by Micha Rogers MD
--- NOTE | 2024-01-31 13:02 | CT ---
EXAM: CT lumbar spine without IV contrast HISTORY: Fall - COMPARISON: None. TECHNIQUE: Multiple axial images of the lumbar spine were obtained from the thoracolumbar junction to the sacrum without the administration of IV contrast. Sagittal and coronal reformats were performed and review ed. Dose reduction techniques including Automated Exposure Control (AEC) and adjustment of mA and kV were utilized. FINDINGS: No scoliosis. No pars defect or spondylolisthesis. No compression fracture is seen. Posterior [place] ent hypertrophy and mild disc bulge at L1-2 cause mild central canal and neuroforaminal narrowing. At L2-3 there is moderate posterior element hypertrophy and mild posterior osteophyte formation causi ng moderate thecal sac effacement and moderate lateral recess stenosis. Mild neuroforaminal narrowin g is seen. At L3-4 there is mild posterior element hypertrophy causing mild thecal sac effacement, lateral reces s stenosis, and neuroforaminal stenosis. At L4-5 there is diffuse disc bulge and mild posterior element hypertrophy. There is moderate neurof oraminal stenosis. Likely moderate thecal sac effacement and lateral recess stenosis is present. At L5-S1 mild facet hypertrophy causes no significant stenosis. Incidental note is made of tiny nonobstructing renal stones. IMPRESSION: No fracture is seen. Chronic spondylosis is seen. There is mild disc bulge at L1-2 but no disc herniations are identified . Greatest degree of central canal stenosis is seen at L2-3 where posterior osteophytes and posterior e lement hypertrophy cause moderate thecal sac effacement. THIS IS AN ELECTRONICALLY VERIFIED FINAL REPORT 01/31/2024 12:59 PM - Electronically signed by Micha Rogers MD
--- NOTE | 2024-01-31 17:48 | DR.H&P ---
H&P History & Physical for Day of: H&P Date: 01/30/24 Chief Complaint Chief Complaint: weakness, falls, SOB, coughing Allergies Allergies Allergy/AdvReac Type Severity Reaction Status Date / Time No Known Drug Allergies Allergy Verified 04/28/17 08:50 History of Present Illness History of Present Illness: 88-year male brought in for evaluation. Patient is had 4 falls today, states he becomes dizzy and falls. No true loss of consciousness. Has hit his forehead, has a bruise of the forehead. Patient is on blood thinning medication (Eliquis and Plavix), denies headache. Having some neck discomfort, but does have arthritis. Denies chest pain, shortness of b reath, diaphoresis. Denies nausea, vomiting, bowel or bladder issues. No fever or chills. Patient has skin tears of the left elbow and the right hand region. Past Medical History Past Medical History: Angina, Arthritis, CHF, COPD, Coronary Artery Disease, Dyslipidemia, Hypertension and Sleep Apnea Additional Medical History: BPH Past Surgical History Surgical History: Angioplasty/Stents, CABG/Valve Surgery, Cholecystectomy and Other Family History Family Medical History: Cancer, Coronary Artery Disease and Hypertension Social History Does patient currently use any type of tobacco product: No Have you used tobacco products in the last 12 months: No Type of Tobacco Use: None Does any household member use tobacco: No Alcohol Use: None Medications Home Medications: Home Medications Medication Instructions Recorded Confirmed Type benazepril 20 mg tablet (Lotensin) 20 mg PO BID 07/28/15 01/31/24 History apixaban 5 mg tablet (Eliquis) 1 tab PO BID 01/05/17 01/31/24 History atorvastatin 40 mg tablet 40 mg PO DAILY 09/08/20 01/31/24 History clopidogrel 75 mg tablet 75 mg PO DAILY 09/08/20 01/31/24 History digoxin 125 mcg (0.125 mg) tablet 125 mcg PO DAILY 09/08/20 01/31/24 History theophylline 400 mg 400 mg PO DAILY 09/08/20 01/31/24 History tablet,extended release 24 hr carvedilol 25 mg tablet 25 mg PO BID 05/14/21 01/31/24 History hydrochlorothiazide 12.5 mg capsule 12.5 mg PO DAILY 05/14/21 01/31/24 History albuterol sulfate 2.5 mg/3 mL 2.5 mg inhalation PRN PRN 01/31/24 01/31/24 History (0.083 %) solution for nebulization amitriptyline 10 mg tablet 10 mg PO QPM 01/31/24 01/31/24 History Labs 01/31/24 05:29 01/31/24 05:29 Labs: 01/31/24 11:20 Sputum - Expectorated Sputum - Final Laboratory WBC 5.1 X10^3/uL (3.6-10.0) 01/31/24 05:29 RBC 3.12 X10^6/uL (4.7-6.0) L 01/31/24 05:29 Hgb 10.2 g/dL (13.5-18.0) L 01/31/24 05:29 Hct 30.4 % (42.0-54.0) L 01/31/24 05:29 MCV 97.5 fL (80.0-100.0) 01/31/24 05:29 MCH 32.7 pg (27.0-34.0) 01/31/24 05:29 MCHC 33.5 g/dL (33.0-35.0) 01/31/24 05:29 RDW 15.4 % (11.6-16.5) 01/31/24 05:29 Plt Count 74 X10^3/uL (150.0-450.0) L 01/31/24 05:29 MPV 10.6 fL (7.4-11.0) 01/31/24 05:29 Neut % (Auto) 70.2 % (42.0-75.0) 01/31/24 05:29 Lymph % (Auto) 13.0 % (21.0-51.0) L 01/31/24 05:29 [place] % (Auto) 16.1 % (0.0-13.0) H 01/31/24 05:29 Eos % (Auto) 0.1 % (0.9-2.9) L 01/31/24 05:29 Baso % (Auto) 0.6 % (0.2-1.0) 01/31/24 05:29 Neut # (Auto) 3.6 x10^3/uL (2.2-4.8) 01/31/24 05:29 Lymph # (Auto) 0.7 X10^3/uL (1.3-2.9) L 01/31/24 05:29 [place] # (Auto) 0.8 x10^3/uL (0.3-0.8) 01/31/24 05:29 Eos # (Auto) 0.0 x10^3/uL (0.0-0.2) 01/31/24 05:29 Baso # (Auto) 0.0 X10^3/uL (0.0-0.1) 01/31/24 05:29 Absolute Nucleated RBC 0.1 /100WBC 01/31/24 05:29 Sodium 145 mmol/L (136-145) 01/31/24 05:29 Corrected Sodium TNP 01/31/24 05:29 Potassium 4.4 mmol/L (3.5-5.1) 01/31/24 05:29 Chloride 108 mmol/L (98-107) H 01/31/24 05:29 Carbon Dioxide 30.6 mmol/L (21-32) 01/31/24 05:29 BUN 84 mg/dL (7-18) H 01/31/24 05:29 Creatinine 1.84 mg/dL (0.70-1.30) H 01/31/24 05:29 Est GFR (MDRD) Af Amer 45 (>60) L 01/31/24 05:29 Est GFR (MDRD) Non-Af 37 (>60) L 01/31/24 05:29 Glucose 96 mg/dL (65-99) 01/31/24 05:29 Calcium 8.3 mg/dL (8.5-10.1) L 01/31/24 05:29 Corrected Calcium 9.1 mg/dL (8.5-10.1) 01/31/24 05:29 Total Bilirubin 0.90 mg/dL (0.2-1.0) 01/31/24 05:29 AST 28 Units/L (15-37) 01/31/24 05:29 ALT 30 Units/L (12-78) 01/31/24 05:29 Alkaline Phosphatase 100 Units/L (46-116) 01/31/24 05:29 Creatine Kinase 77 Units/L (39-308) 01/30/24 18:18 Troponin I High Sens 39.9 ng/L (4.0-60.0) 01/30/24 20:45 B-Natriuretic Peptide 223 pg/mL (0-79) H 01/30/24 18:18 Total Protein 6.0 g/dL (6.4-8.2) L 01/31/24 05:29 Albumin 3.0 g/dL (3.4-5.0) L 01/31/24 05:29 Globulin 3.0 g/dL (2.5-4.5) 01/31/24 05:29 Albumin/Globulin Ratio 1.0 Ratio (1.1-2.1) L 01/31/24 05:29 Lipase 38 Units/L (16-77) 01/30/24 18:18 Specimen Type Clean catch urine 01/30/24 20:22 Urine Color Dark yellow (YELLOW) 01/30/24 20:22 Urine Appearance Slightly hazy (CLEAR) 01/30/24 20:22 Urine pH 5.0 (5.0 - 8.0) 01/30/24 20:22 Ur Specific [place] 1.025 (1.000-1.030) 01/30/24 20:22 Urine Protein 2+ (NEGATIVE) 01/30/24 20:22 Urine Glucose (UA) Negative (NEGATIVE) 01/30/24 20: Urine Ketones Negative (NEGATIVE) 01/30/24 20: Urine Blood Negative (NEGATIVE) 01/30/24 20: Urine Nitrite Negative (NEGATIVE) 01/30/24 20:22 Urine Bilirubin Negative (NEGATIVE) 01/30/24 20:22 Urine Urobilinogen Normal (NORMAL) 01/30/24 20:22 Ur Leukocyte Esterase Negative (NEGATIVE) 01/30/24 20:22 Urine RBC 0-2 /HPF (0-3) 01/30/24 20:22 Urine WBC None seen /HPF (0-5) 01/30/24 20:22 Ur Squamous Epith Cells Few /HPF (NEGATIVE) 01/30/24 20: Amorphous Sediment 1+ /HPF (NEGATIVE) 01/30/24 20:22 Urine Bacteria 1+ /HPF (NEGATIVE) 01/30/24 20:22 Hyaline Casts Few /LPF (NEGATIVE) 01/30/24 20:22 Coarse Granular Casts Few /HPF (NEGATIVE) 04/18/24 20:22 Urine Mucus Few /HPF (NEGATIVE) 01/30/24 20:22 Ur Culture Indicated? No/not indicated 01/30/24 20:22 Digoxin 1.91 ng/mL (0.9-2) 01/30/24 20:45 Theophylline 5.3 ug/mL (10-20) L 01/31/24 05:29 Review of Systems Constitutional: Weakness Eyes: No Symptoms Reported ENT: No Symptoms Reported Respiratory: Shortness of Breath and SOB with Excertion Cardiovascular: Edema Gastrointestinal: Diarrhea Genitourinary: Frequency Musculoskeletal: Back Pain Skin: Bruising Neurological: Weakness Physical Exam Vital Signs: Vital Signs Temperature 97.6 F Pulse Rate [Brachial] 70 Respiratory Rate 17 Blood Pressure [Right Arm] 102/51 O2 Sat by Pulse Oximetry 97 Oriented: Normal Eyes: Normal Ear: Normal Nose: Normal Throat: Normal Respiratory: Wheezes Throughout, RLL Diminished and LLL Diminished Cardiovascular: Edema; negative Tachycardia or Bradycardia Auscultation: Bowel Sounds: Normal Palpation: Normal Tenderness: Normal Skin: Decreased Turgur and Bruising (left forehead hematoma) Musculoskeletal: Right, Left, Knee and Back:Lumbar Psychiatric: Normal Mood Description: Calm Speech Pattern: Clear and Appropriate Assessment/Plan (1) COPD exacerbation: Narrative Support Text: ADMIT, RESP THERAPY SUPPEMENTAL O2 GENTLE IV HYDRATION WITH STRICT I&OS IV ROCEPHIN, VERIFY HOME MEDICATIONS DIGOXIN AND THEOPHYLLINE LEVEL UC ON ADMISSION WOUND CARE, CT HEAD ON ADMISSION Status: Acute (2) CHF (congestive heart failure): Status: Acute (3) Hypertension: Status: Chronic (4) Head injury: Status: Acute (5) Atrial fibrillation: Status: Chronic (6) CAD (coronary artery disease): Status: Chronic (7) Weakness: Status: Acute
[2024-01-31] MEDS ORDERED: ROBITUSSIN DM PO PRN (17:52)
--- NOTE | 2024-01-31 17:52 | PCM.PROG ---
Progress Note Progress Note for Day of Date of Exam: 01/31/24 Subjective Subjective: PT IS 88 WM, ER ADMISSION WITH CO WEAKNESS, COUGH, INCREASED SOB AND FALL WITH HEAD INJURY AND CONTUSION TO LEFT UPPER ARM AND RIGHT UPPER LEG. PT IS CURRENTLY ON GENTLE IV HYDRATION, HOME MEDICATION REVIEWED AND RESUMED. AM LABS WITH BUN 84, CREAT 1.84. PHYSICAL THERAPY CONSULTED FOR ASSESSMENT AFTER CT OF LSPINE AND PELVIS. LABS AND PLAN OF CARE DISCUSSED WITH FAMILY AT BEDSIDE. PT HAD DIFFUSE RHONCHI ON ASSESSMENT OF LUNG SOUNDS THIS AM. PLAN TO OBTAIN CHEST XRAY AND CONTINUE WITH PULMONARY TOILETING AND SPUTUM CULTURE. Past Medical Family Social History Allergies: Allergies No Known Drug Allergies Allergy (Verified 04/28/17 08:50) Vital Signs and I&O's Vital Signs: Vital Signs Temperature 97.6 F Pulse Rate [Brachial] 70 Respiratory Rate 17 Blood Pressure [Right Arm] 102/51 O2 Sat by Pulse Oximetry 97 Intake and Output: Intake & Output 01/29/24 01/30/24 01/31/24 02/01/24 11:59 11:59 11:59 11:59 Intake Total 707 / 707 600 / 600 Output Total 300 / 300 Balance 407 / 407 600 / 600 Physical Exam Oriented: Normal Eyes: Normal Ear: Normal Nose: Normal Throat: Normal Respiratory: Rhonchi Cardiovascular: Edema; negative Tachycardia or Bradycardia Auscultation: Bowel Sounds: Normal Tenderness: Normal Skin: Decreased Turgur and Bruising (left forehead hematoma) Musculoskeletal: Right, Left, Knee and Back:Lumbar Psychiatric: Normal Mood Description: Calm Speech Pattern: Clear and Appropriate Laboratory and Diagnostics 01/31/24 05:29 01/31/24 05:29 Labs: 01/31/24 11:20 Sputum - Expectorated Sputum - Final Laboratory WBC 5.1 X10^3/uL (3.6-10.0) 01/31/24 05:29 RBC 3.12 X10^6/uL (4.7-6.0) L 01/31/24 05:29 Hgb 10.2 g/dL (13.5-18.0) L 01/31/24 05:29 Hct 30.4 % (42.0-54.0) L 01/31/24 05:29 MCV 97.5 fL (80.0-100.0) 01/31/24 05:29 MCH 32.7 pg (27.0-34.0) 01/31/24 05:29 MCHC 33.5 g/dL (33.0-35.0) 01/31/24 05:29 RDW 15.4 % (11.6-16.5) 01/31/24 05:29 Plt Count 74 X10^3/uL (150.0-450.0) L 01/31/24 05:29 MPV 10.6 fL (7.4-11.0) 01/31/24 05:29 Neut % (Auto) 70.2 % (42.0-75.0) 01/31/24 05:29 Lymph % (Auto) 13.0 % (21.0-51.0) L 01/31/24 05:29 [place] % (Auto) 16.1 % (0.0-13.0) H 01/31/24 05:29 Eos % (Auto) 0.1 % (0.9-2.9) L 01/31/24 05:29 Baso % (Auto) 0.6 % (0.2-1.0) 01/31/24 05:29 Neut # (Auto) 3.6 x10^3/uL (2.2-4.8) 01/31/24 05:29 Lymph # (Auto) 0.7 X10^3/uL (1.3-2.9) L 01/31/24 05:29 [place] # (Auto) 0.8 x10^3/uL (0.3-0.8) 01/31/24 05:29 Eos # (Auto) 0.0 x10^3/uL (0.0-0.2) 01/31/24 05:29 Baso # (Auto) 0.0 X10^3/uL (0.0-0.1) 01/31/24 05:29 Absolute Nucleated RBC 0.1 /100WBC 01/31/24 05:29 Sodium 145 mmol/L (136-145) 01/31/24 05:29 Corrected Sodium TNP 01/31/24 05:29 Potassium 4.4 mmol/L (3.5-5.1) 01/31/24 05:29 Chloride 108 mmol/L (98-107) H 01/31/24 05:29 Carbon Dioxide 30.6 mmol/L (21-32) 01/31/24 05:29 BUN 84 mg/dL (7-18) H 01/31/24 05:29 Creatinine 1.84 mg/dL (0.70-1.30) H 01/31/24 05:29 Est GFR (MDRD) Af Amer 45 (>60) L 01/31/24 05:29 Est GFR (MDRD) Non-Af 37 (>60) L 01/31/24 05:29 Glucose 96 mg/dL (65-99) 01/31/24 05:29 Calcium 8.3 mg/dL (8.5-10.1) L 01/31/24 05:29 Corrected Calcium 9.1 mg/dL (8.5-10.1) 01/31/24 05:29 Total Bilirubin 0.90 mg/dL (0.2-1.0) 01/31/24 05:29 AST 28 Units/L (15-37) 01/31/24 05:29 ALT 30 Units/L (12-78) 01/31/24 05:29 Alkaline Phosphatase 100 Units/L (46-116) 01/31/24 05:29 Creatine Kinase 77 Units/L (39-308) 01/30/24 18:18 Troponin I High Sens 39.9 ng/L (4.0-60.0) 01/30/24 20:45 B-Natriuretic Peptide 223 pg/mL (0-79) H 01/30/24 18:18 Total Protein 6.0 g/dL (6.4-8.2) L 01/31/24 05:29 Albumin 3.0 g/dL (3.4-5.0) L 01/31/24 05:29 Globulin 3.0 g/dL (2.5-4.5) 01/31/24 05:29 Albumin/Globulin Ratio 1.0 Ratio (1.1-2.1) L 01/31/24 05:29 Lipase 38 Units/L (16-77) 01/30/24 18:18 Specimen Type Clean catch urine 01/30/24 20:22 Urine Color Dark yellow (YELLOW) 01/30/24 20:22 Urine Appearance Slightly hazy (CLEAR) 01/30/24 20:22 Urine pH 5.0 (5.0 - 8.0) 01/30/24 20:22 Ur Specific [place] 1.025 (1.000-1.030) 01/30/24 20:22 Urine Protein 2+ (NEGATIVE) 01/30/24 20:22 Urine Glucose (UA) Negative (NEGATIVE) 01/30/24 20:22 Urine Ketones Negative (NEGATIVE) 01/30/24 20:22 Urine Blood Negative (NEGATIVE) 01/30/24 20:22 Urine Nitrite Negative (NEGATIVE) 01/30/24 20: Urine Bilirubin Negative (NEGATIVE) 01/30/24 20:22 Urine Urobilinogen Normal (NORMAL) 01/30/24 20:22 Ur Leukocyte Esterase Negative (NEGATIVE) 01/30/24 20:22 Urine RBC 0-2 /HPF (0-3) 01/30/24 20:22 Urine WBC None seen /HPF (0-5) 01/30/24 20:22 Ur Squamous Epith Cells Few /HPF (NEGATIVE) 01/30/24 20:22 Amorphous Sediment 1+ /HPF (NEGATIVE) 01/30/24 20:22 Urine Bacteria 1+ /HPF (NEGATIVE) 01/30/24 20:22 Hyaline Casts Few /LPF (NEGATIVE) 01/30/24 20:22 Coarse Granular Casts Few /HPF (NEGATIVE) 01/30/24 20:22 Urine Mucus Few /HPF (NEGATIVE) 01/30/24 20:22 Ur Culture Indicated? No/not indicated 01/30/24 20:22 Digoxin 1.91 ng/mL (0.9-2) 01/30/24 20:45 Theophylline 5.3 ug/mL (10-20) L 01/31/24 05:29 Plan (1) COPD exacerbation: Status: Acute Narrative Support Text: RESP THERAPY, PRN SUPPLEMENTAL O2 REPEAT CXR, IV ROCEPHIN SPUTUM CULTURE, CARDIAC MONITORING PAIN CONTROL, CT PELVIS AND LSPINE PHYSICAL THERAPY CONSULTATION (2) CHF (congestive heart failure): Status: Acute (3) Hypertension: Status: Chronic (4) Head injury: Status: Acute (5) Atrial fibrillation: Status: Chronic (6) CAD (coronary artery disease): Status: Chronic (7) Weakness: Status: Acute
[2024-02-01 06:33] LABS: BASOPHILS % (AUTO) 0.3 % (0.2-1.0); EOSINOPHILS % (AUTO) 0.4 % (0.9-2.9); HEMATOCRIT 28.6 % (42.0-54.0); HEMOGLOBIN 9.6 g/dL (13.5-18.0); LYMPHOCYTES # (AUTO) 0.9 X10^3/uL (1.3-2.9); LYMPHOCYTES % (AUTO) 15.2 % (21.0-51.0); MEAN CORPUSCULAR HEMOGLOBIN 32.8 pg (27.0-34.0); MEAN CORPUSCULAR HGB CONC 33.6 g/dL (33.0-35.0); MEAN CORPUSCULAR VOLUME 97.7 fL (80.0-100.0); MEAN PLATELET VOLUME 11.3 fL (7.4-11.0); MONOCYTES # (AUTO) 0.9 x10^3/uL (0.3-0.8); MONOCYTES % (AUTO) 14.9 % (0.0-13.0); NEUTROPHILS % (AUTO) 69.2 % (42.0-75.0); PLATELET COUNT 74 X10^3/uL (150.0-450.0); RED BLOOD COUNT 2.93 X10^6/uL (4.7-6.0); RED CELL DISTRIBUTION WIDTH 14.9 % (11.6-16.5); WHITE BLOOD COUNT 5.8 X10^3/uL (3.6-10.0)
[2024-02-01 06:49] LABS: ALANINE AMINOTRANSFERASE 26 Units/L (12-78); ALBUMIN 2.8 g/dL (3.4-5.0); ALKALINE PHOSPHATASE 104 Units/L (46-116); ASPARTATE AMINO TRANSFERASE 22 Units/L (15-37); BLOOD UREA NITROGEN 86 mg/dL (7-18); CALCIUM 8.3 mg/dL (8.5-10.1); CARBON DIOXIDE 32.2 mmol/L (21-32); CHLORIDE 107 mmol/L (98-107); COR CA(FOR HYPOALB) 9.3 mg/dL (8.5-10.1); CREATININE 1.99 mg/dL (0.70-1.30); GLUCOSE 106 mg/dL (65-99); MAGNESIUM 2.1 mg/dL (2.0-2.9); POTASSIUM 4.4 mmol/L (3.5-5.1); SODIUM 143 mmol/L (136-145); TOTAL PROTEIN 5.9 g/dL (6.4-8.2); eGFR NON BLACK RACES 34 (>60)
[2024-02-01] MEDS: LASIX IVP ONE (14:00)
[2024-02-01] MEDS: SOLU-Medrol 40 MG VIAL IVP ONE (14:56)
[2024-02-01] MEDS: ELIQUIS PO SCH (21:39)
[2024-02-02 05:37] LABS: BASOPHILS % (AUTO) 0.1 % (0.2-1.0); HEMATOCRIT 28.1 % (42.0-54.0); HEMOGLOBIN 9.6 g/dL (13.5-18.0); LYMPHOCYTES # (AUTO) 0.3 X10^3/uL (1.3-2.9); LYMPHOCYTES % (AUTO) 7.7 % (21.0-51.0); MEAN CORPUSCULAR HEMOGLOBIN 32.9 pg (27.0-34.0); MEAN CORPUSCULAR HGB CONC 34.1 g/dL (33.0-35.0); MEAN CORPUSCULAR VOLUME 96.4 fL (80.0-100.0); MEAN PLATELET VOLUME 10.7 fL (7.4-11.0); MONOCYTES # (AUTO) 0.1 x10^3/uL (0.3-0.8); NEUTROPHILS # (AUTO) 3.3 x10^3/uL (2.2-4.8); NEUTROPHILS % (AUTO) 88.2 % (42.0-75.0); PLATELET COUNT 67 X10^3/uL (150.0-450.0); RED BLOOD COUNT 2.91 X10^6/uL (4.7-6.0); RED CELL DISTRIBUTION WIDTH 15.2 % (11.6-16.5); WHITE BLOOD COUNT 3.7 X10^3/uL (3.6-10.0)
[2024-02-02 05:46] LABS: ALBUMIN 2.9 g/dL (3.4-5.0); CALCIUM 8.1 mg/dL (8.5-10.1); CARBON DIOXIDE 30.4 mmol/L (21-32); CREATININE 1.98 mg/dL (0.70-1.30); POTASSIUM 4.7 mmol/L (3.5-5.1); TOTAL PROTEIN 6.2 g/dL (6.4-8.2)
--- NOTE | 2024-02-02 13:35 | RAD ---
EXAM:CHESTHISTORY:copd, pneumonia, chf;COMPARISON:January 31, 2024.TECHNIQUE:Frontal view of the chest was submitted for interpretation.FINDINGS:Left-sided cardiac pacer noted the cardiomediastinal silhouette is again seen to be enlarged post CABG lungs show likely mild developing pulmonary edema.IMPRESSION:Cardiomegaly with likely developing mild pulmonary edema.THIS IS AN ELECTRONICALLY VERIFIED FINAL REPORT02/02/2024 1:31 PM - Electronically signed by Daniel Cole MD
[2024-02-02] MEDS: LASIX IVP ONE ×2 (14:34→18:09)
[2024-02-03] MEDS: MILK OF MAGNESIA PO PRN (03:22)
[2024-02-03 06:29] LABS: BASOPHILS % (AUTO) 0.3 % (0.2-1.0); EOSINOPHILS % (AUTO) 0.1 % (0.9-2.9); HEMATOCRIT 28.1 % (42.0-54.0); HEMOGLOBIN 9.5 g/dL (13.5-18.0); LYMPHOCYTES # (AUTO) 0.7 X10^3/uL (1.3-2.9); LYMPHOCYTES % (AUTO) 9.9 % (21.0-51.0); MEAN CORPUSCULAR HEMOGLOBIN 32.6 pg (27.0-34.0); MEAN CORPUSCULAR HGB CONC 33.7 g/dL (33.0-35.0); MEAN CORPUSCULAR VOLUME 96.8 fL (80.0-100.0); MEAN PLATELET VOLUME 11.3 fL (7.4-11.0); MONOCYTES # (AUTO) 0.7 x10^3/uL (0.3-0.8); MONOCYTES % (AUTO) 9.9 % (0.0-13.0); NEUTROPHILS # (AUTO) 5.4 x10^3/uL (2.2-4.8); NEUTROPHILS % (AUTO) 79.8 % (42.0-75.0); PLATELET COUNT 71 X10^3/uL (150.0-450.0); RED BLOOD COUNT 2.91 X10^6/uL (4.7-6.0); RED CELL DISTRIBUTION WIDTH 14.9 % (11.6-16.5); WHITE BLOOD COUNT 6.7 X10^3/uL (3.6-10.0)
[2024-02-03 06:38] LABS: ALANINE AMINOTRANSFERASE 29 Units/L (12-78); ALBUMIN 2.9 g/dL (3.4-5.0); ALKALINE PHOSPHATASE 94 Units/L (46-116); ASPARTATE AMINO TRANSFERASE 22 Units/L (15-37); BLOOD UREA NITROGEN 73 mg/dL (7-18); CALCIUM 8.3 mg/dL (8.5-10.1); CARBON DIOXIDE 32.9 mmol/L (21-32); CHLORIDE 108 mmol/L (98-107); COR CA(FOR HYPOALB) 9.2 mg/dL (8.5-10.1); CREATININE 1.84 mg/dL (0.70-1.30); GLUCOSE 104 mg/dL (65-99); POTASSIUM 4.4 mmol/L (3.5-5.1); SODIUM 144 mmol/L (136-145); TOTAL PROTEIN 6.1 g/dL (6.4-8.2); eGFR NON BLACK RACES 37 (>60)
--- NOTE | 2024-02-03 06:58 | RAD ---
EXAM:Portable chestHISTORY:COPD exacerbationCOMPARISON:02/02/2024FINDINGS: r lobe. Patient is status post median sternotomy and CABG. Heart is enlarged. No congestive heart failure is noted. Lungs are hyperinflated but free of acute alveolar infiltrates. No pleural effusions or pneumothoraces identified.IMPRESSION:Cardiomegaly without congestive heart failureHyperinflation consistent with COPD in the appropriate clinical settingNo acute infiltratesTHIS IS AN ELECTRONICALLY VERIFIED FINAL REPORT02/03/2024 6:54 AM - Electronically signed by Dami Villanuvea MD
[2024-02-03] MEDS: LASIX IVP ONE (10:08)
[2024-02-03] MEDS: ROBITUSSIN DM PO SCH (10:08)
[2024-02-03] MEDS: SOLU-Medrol 40 MG VIAL IVP SCH (10:08)
[2024-02-03 17:49] LABS: CRYPTOSPORIDIUM PARVUM ANTIGEN NEGATIVE (NEGATIVE); GIARDIA LAMBLIA ANTIGEN NEGATIVE (NEGATIVE)
[2024-02-04 05:45] LABS: BASOPHILS % (AUTO) 0 % (0.2-1.0); HEMATOCRIT 28.7 % (42.0-54.0); HEMOGLOBIN 9.6 g/dL (13.5-18.0); LYMPHOCYTES # (AUTO) 0.2 X10^3/uL (1.3-2.9); MEAN CORPUSCULAR HEMOGLOBIN 32.5 pg (27.0-34.0); MEAN CORPUSCULAR HGB CONC 33.6 g/dL (33.0-35.0); MEAN CORPUSCULAR VOLUME 96.9 fL (80.0-100.0); MEAN PLATELET VOLUME 10.8 fL (7.4-11.0); MONOCYTES # (AUTO) 0.1 x10^3/uL (0.3-0.8); MONOCYTES % (AUTO) 1.7 % (0.0-13.0); NEUTROPHILS # (AUTO) 5.5 x10^3/uL (2.2-4.8); NEUTROPHILS % (AUTO) 95.3 % (42.0-75.0); PLATELET COUNT 76 X10^3/uL (150.0-450.0); RED BLOOD COUNT 2.96 X10^6/uL (4.7-6.0); RED CELL DISTRIBUTION WIDTH 14.7 % (11.6-16.5); WHITE BLOOD COUNT 5.8 X10^3/uL (3.6-10.0)
[2024-02-04 06:03] LABS: CALCIUM 8.5 mg/dL (8.5-10.1); CARBON DIOXIDE 32.6 mmol/L (21-32); COR CA(FOR HYPOALB) 9.3 mg/dL (8.5-10.1); CREATININE 1.7 mg/dL (0.70-1.30); POTASSIUM 5.2 mmol/L (3.5-5.1); TOTAL PROTEIN 6.4 g/dL (6.4-8.2)
[2024-02-04 06:14] LABS: OVALOCYTES SLIGHT; PLATELET MORPHOLOGY COMMENT NORMAL (NORMAL)
[2024-02-04] MEDS: LASIX IVP ONE (09:54)
--- NOTE | 2024-02-04 12:34 | CT ---
EXAM: BRAIN W/O CON HISTORY: AMS; COMPARISON: Prior study or studies were utilized for comparison during interpretation with the most relevant kayli ed 01/30/2024 TECHNIQUE: CT images were obtained. Multiplanar reconstructions were created on a separate workstation and used during interpretation. All CT scans at this facility is dose modulation, iterative reconstruction, an d/or weight-based dosing as appropriate to reduce radiation to levels as low as reasonably achievable (ALARA). Postprocessing details, radiation dose, and contrast dose (if applicable) are recorded in t he patient's medical record. FINDINGS: Acute findings: There is no intracranial hemorrhage. No mass effect. No intra-axial or extra-axial fl uid collection. There is no mass. No tentorial, uncal, or tonsillar herniation. Brain volume and white matter: There is diffuse cortical atrophy. There is hypoattenuation in the sup ratentorial white matter consistent with chronic microvascular ischemic disease. Ventricles: No hydrocephalus Midline structures: Pituitary gland and corpus callosum are normal. Posterior fossa and skull base: Cerebellum and posterior fossa are within normal limits. Basal cister ns are not effaced. Sinuses and mastoids: Paranasal sinuses and mastoid air cells are predominantly clear. Globes and Orbits: Bilateral lens implants. Globes are intact. Bony orbits are intact. Extraocular mu scles and retrobulbar fat appear normal. Skull and soft tissues: No depressed skull fracture. Calvarium appears intact. No scalp injury is rex ntified. IMPRESSION: 1. No acute intracranial abnormality THIS IS AN ELECTRONICALLY VERIFIED FINAL REPORT 02/04/2024 12:31 PM - Electronically signed by Maico Vidales MD
--- NOTE | 2024-02-04 14:40 | RAD ---
EXAM:CHEST x-ray two viewsHISTORY:copd, chf -COMPARISON:X-ray 02/03/2024FINDINGS:Single lead of the cardiac device is directed towards the right ventricular apex. There is cardiomegaly without pulmonary venous congestion. COPD changes are seen. Mild atelectasis is seen at the left lung base. There are small pleural effusions.IMPRESSION:Cardiomegaly is seen without evidence of CHF.There is COPD.Small pleural effusions.THIS IS AN ELECTRONICALLY VERIFIED FINAL REPORT02/04/2024 2:36 PM - Electronically signed by Micha Rogers MD
--- NOTE | 2024-02-04 18:04 | PCM.PROG ---
Progress Note Progress Note for Day of Date of Exam: 02/01/24 Subjective Subjective: PT IS 88 WM, ER ADMISSION AFTER PRESENTING WITH COMPLAINS OF [place] THAT DAY, STATES THAT HE WOULD BECOME DIZZY AND FALL. HE REPORTS HITTING FOREHEAD CAUSING BRUISE. HE ALSO SUSTAINED A SKIN TEAR TO LEFT ELBOW AND RIGHT HAND REGION DURING FALLS. ER WORKUP INCLUDED A CT BRAIN WITHOUT CONTRAST THAT DID NOT REVEAL AN INTRACRANIAL ABNORMALITY, CERVICAL SPINE CT THAT DID NOT REVEAL FX OR SUBLUXATION, RIGHT HIP XRAY THATT DID NOT REVEAL A FX OR DISLOCATION, CXR THAT REVEALED HYPERINFLATION. LABS SHOWED KIDNEY DYSFUNCTION- BUN 85/CREATININE 2.07. HE HAS A HISTORY OF RENAL FAILURE. EKG REVEALED VENTRICULAR PACED RHYTHM AND HIS TROPONINS WERE 41.2/39.9 RESPECTIVELY. HE WAS ADMITTED FOR TREATMENT OF DEHYDRATION, COPD EXACERBATION, AND CHF. SINCE ADMISSION, PT HAS BEEN TREATED WITH IV LASIX, IV ABX, IV SOLUMEDROL, AND IV HYDRATION. HE HAD AN EPISODE OF DIARRHEA YESTERDAY. MORNING LABS: HGB 9.6, WBC 5.8, BUN 86/CREATININE 1.99. Past Medical Family Social History Allergies: Allergies No Known Drug Allergies Allergy (Verified 04/28/17 08:50) Vital Signs and I&O's Vital Signs: Vital Signs Temperature 97.7 F Pulse Rate [Brachial] 70 Pulse Rate 82 Respiratory Rate 22 Blood Pressure [Left Arm] 96/49 O2 Sat by Pulse Oximetry 94 O2 Sat by Pulse Oximetry 87 Intake and Output: Intake & Output 02/02/24 02/03/24 02/04/24 02/05/24 11:59 11:59 11:59 11:59 Intake Total 2342 / 2342 1170 / 1170 2334 / 2334 541 / 541 Output Total 552 / 552 820 / 820 1200 / 1200 Balance 1790 / 1790 350 / 350 1134 / 1134 541 / 541 Physical Exam Oriented: Normal Eyes: Normal Ear: Normal Nose: Normal Throat: Normal Respiratory: Rhonchi Cardiovascular: Edema; negative Tachycardia or Bradycardia Auscultation: Bowel Sounds: Normal Tenderness: Normal Skin: Decreased Turgur and Bruising (left forehead hematoma) Musculoskeletal: Right, Left, Knee and Back:Lumbar Psychiatric: Normal Mood Description: Calm Speech Pattern: Clear and Appropriate Laboratory and Diagnostics 02/04/24 05:24 02/04/24 05:24 Labs: 02/03/24 17:00 Stool Stool Culture - Preliminary 02/03/24 17:00 Stool - Final 01/31/24 11:20 Sputum - Expectorated Sputum Sputum Culture - Final 01/31/24 11:20 Sputum - Expectorated Sputum - Final 01/31/24 14:57 Urine,Clean Catch Urine Culture - Final Laboratory WBC 5.8 X10^3/uL (3.6-10.0) 02/04/24 05:24 RBC 2.96 X10^6/uL (4.7-6.0) L 02/04/24 05:24 Hgb 9.6 g/dL (13.5-18.0) L 02/04/24 05:24 Hct 28.7 % (42.0-54.0) L 02/04/24 05:24 MCV 96.9 fL (80.0-100.0) 02/04/24 05:24 MCH 32.5 pg (27.0-34.0) 02/04/24 05:24 MCHC 33.6 g/dL (33.0-35.0) 02/04/24 05:24 RDW 14.7 % (11.6-16.5) 02/04/24 05:24 Plt Count 76 X10^3/uL (150.0-450.0) L 02/04/24 05:24 Plt Count Comment Decreased (ADEQUATE) 02/04/24 05:24 MPV 10.8 fL (7.4-11.0) 02/04/24 05:24 Neut % (Auto) 95.3 % (42.0-75.0) H 02/04/24 05:24 Lymph % (Auto) 3.0 % (21.0-51.0) L 02/04/24 05:24 [place] % (Auto) 1.7 % (0.0-13.0) 02/04/24 05:24 Eos % (Auto) 0.0 % (0.9-2.9) L 02/04/24 05:24 Baso % (Auto) 0 % (0.2-1.0) L 02/04/24 05:24 Neut # (Auto) 5.5 x10^3/uL (2.2-4.8) H 02/04/24 05:24 Lymph # (Auto) 0.2 X10^3/uL (1.3-2.9) L 02/04/24 05:24 [place] # (Auto) 0.1 x10^3/uL (0.3-0.8) L 02/04/24 05:24 Eos # (Auto) 0.0 x10^3/uL (0.0-0.2) 02/04/24 05:24 Baso # (Auto) 0.0 X10^3/uL (0.0-0.1) 02/04/24 05:24 Absolute Nucleated RBC 0.0 /100WBC 02/04/24 05:24 Total Counted 100 02/04/24 05:24 Neutrophils % (Manual) 96 % (39-76) H 02/04/24 05:24 Lymphocytes % (Manual) 3 % (13-43) L 02/04/24 05:24 Monocytes % (Manual) 1 % (4-9) L 02/04/24 05:24 Plt Morphology Comment Normal (NORMAL) 02/04/24 05:24 RBC Morphology Abnormal (NORMAL) 02/04/24 05:24 Ovalocytes Slight A 02/04/24 05:24 Acanthocytes (Sp[place]) 1+ 02/04/24 05:24 Sodium 143 mmol/L (136-145) 02/04/24 05:24 Corrected Sodium 144 mmol/L (136-145) 02/04/24 05:24 Potassium 5.2 mmol/L (3.5-5.1) H 02/04/24 05:24 Chloride 107 mmol/L (98-107) 02/04/24 05:24 Carbon Dioxide 32.6 mmol/L (21-32) H 02/04/24 05:24 BUN 71 mg/dL (7-18) H 02/04/24 05:24 Creatinine 1.70 mg/dL (0.70-1.30) H 02/04/24 05:24 Est GFR (MDRD) Af Amer 49 (>60) L 02/04/24 05:24 Est GFR (MDRD) Non-Af 41 (>60) L 02/04/24 05:24 Glucose 157 mg/dL (65-99) H 02/04/24 05:24 Calcium 8.5 mg/dL (8.5-10.1) 02/04/24 05:24 Corrected Calcium 9.3 mg/dL (8.5-10.1) 02/04/24 05:24 Magnesium 2.1 mg/dL (2.0-2.9) 02/01/24 05:28 Total Bilirubin 0.70 mg/dL (0.2-1.0) 02/04/24 05:24 AST 21 Units/L (15-37) 02/04/24 05:24 ALT 35 Units/L (12-78) 02/04/24 05:24 Alkaline Phosphatase 99 Units/L (46-116) 02/04/24 05:24 Creatine Kinase 77 Units/L (39-308) 01/30/24 18:18 Troponin I High Sens 39.9 ng/L (4.0-60.0) 01/30/24 20:45 B-Natriuretic Peptide 223 pg/mL (0-79) H 01/30/24 18:18 Total Protein 6.4 g/dL (6.4-8.2) 02/04/24 05:24 Albumin 3.0 g/dL (3.4-5.0) L 02/04/24 05:24 Globulin 3.4 g/dL (2.5-4.5) 02/04/24 05:24 Albumin/Globulin Ratio 0.9 Ratio (1.1-2.1) L 02/04/24 05:24 Lipase 38 Units/L (16-77) 01/30/24 18:18 Specimen Type Clean catch urine 01/30/24 20: Urine Color Dark yellow (YELLOW) 01/30/24 20: Urine Appearance Slightly hazy (CLEAR) 01/30/24 20:22 Urine pH 5.0 (5.0 - 8.0) 01/30/24 20:22 Ur Specific [place] 1.025 (1.000-1.030) 01/30/24 20: Urine Protein 2+ (NEGATIVE) 01/30/24 20:22 Urine Glucose (UA) Negative (NEGATIVE) 01/30/24 20: Urine Ketones Negative (NEGATIVE) 01/30/24 20: Urine Blood Negative (NEGATIVE) 01/30/24 20: Urine Nitrite Negative (NEGATIVE) 01/30/24 20:22 Urine Bilirubin Negative (NEGATIVE) 01/30/24 20:22 Urine Urobilinogen Normal (NORMAL) 01/30/24 20:22 Ur Leukocyte Esterase Negative (NEGATIVE) 01/30/24 20:22 Urine RBC 0-2 /HPF (0-3) 01/30/24 20:22 Urine WBC None seen /HPF (0-5) 01/30/24 20:22 Ur Squamous Epith Cells Few /HPF (NEGATIVE) 01/30/24 20:22 Amorphous Sediment 1+ /HPF (NEGATIVE) 01/30/24 20:22 Urine Bacteria 1+ /HPF (NEGATIVE) 01/30/24 20:22 Hyaline Casts Few /LPF (NEGATIVE) 01/30/24 20:22 Coarse Granular Casts Few /HPF (NEGATIVE) 01/30/24 20:22 Urine Mucus Few /HPF (NEGATIVE) 01/30/24 20:22 Ur Culture Indicated? No/not indicated 01/30/24 20:22 Stl Occult Blood (IFOB) Positive (NEGATIVE) A 02/03/24 17:00 Stool for White Cells Positive (NEGATIVE) A 02/03/24 17:00 Stl C. diff Tox B Gene Negative (NEGATIVE) 02/03/24 17:00 Stl C. diff [id number] Presumptive negative (NEGATIVE) 02/03/24 17:00 Stool H. pylori Ag Negative (NEGATIVE) 02/03/24 17:00 Digoxin 1.91 ng/mL (0.9-2) 01/30/24 20:45 Theophylline 5.3 ug/mL (10-20) L 01/31/24 05:29 Cryptosporid parvum Ag Negative (NEGATIVE) 02/03/24 17:00 Giardia lamblia Ag Negative (NEGATIVE) 02/03/24 17:00 Resp Viral Panel (PCR) See scanned report 01/31/24 01:05 Plan (1) COPD exacerbation: Status: Acute Plan: OBTAIN STOOL STUDY. cONTINUE IV ABX, SOLUMEDROL, RESPIRATORY THERAPY, IV HYDRATION, WOUND CARE (2) CHF (congestive heart failure): Status: Acute (3) Hypertension: Status: Chronic (4) Head injury: Status: Acute (5) Atrial fibrillation: Status: Chronic (6) CAD (coronary artery disease): Status: Chronic (7) Weakness: Status: Acute
[2024-02-05 06:13] LABS: BASOPHILS % (AUTO) 0 % (0.2-1.0); HEMATOCRIT 28.8 % (42.0-54.0); HEMOGLOBIN 9.8 g/dL (13.5-18.0); LYMPHOCYTES # (AUTO) 0.2 X10^3/uL (1.3-2.9); MEAN CORPUSCULAR HEMOGLOBIN 32.9 pg (27.0-34.0); MEAN CORPUSCULAR HGB CONC 33.9 g/dL (33.0-35.0); MEAN CORPUSCULAR VOLUME 97.2 fL (80.0-100.0); MEAN PLATELET VOLUME 11.5 fL (7.4-11.0); MONOCYTES # (AUTO) 0.4 x10^3/uL (0.3-0.8); MONOCYTES % (AUTO) 3.6 % (0.0-13.0); NEUTROPHILS # (AUTO) 9.9 x10^3/uL (2.2-4.8); NEUTROPHILS % (AUTO) 94.4 % (42.0-75.0); PLATELET COUNT 86 X10^3/uL (150.0-450.0); RED BLOOD COUNT 2.97 X10^6/uL (4.7-6.0); RED CELL DISTRIBUTION WIDTH 15.3 % (11.6-16.5); WHITE BLOOD COUNT 10.4 X10^3/uL (3.6-10.0)
[2024-02-05 06:32] LABS: CALCIUM 8.6 mg/dL (8.5-10.1); CARBON DIOXIDE 28.1 mmol/L (21-32); COR CA(FOR HYPOALB) 9.4 mg/dL (8.5-10.1); CREATININE 1.92 mg/dL (0.70-1.30); POTASSIUM 5.1 mmol/L (3.5-5.1); TOTAL PROTEIN 6.3 g/dL (6.4-8.2)
[2024-02-05 06:55] LABS: BAND NEUTROPHILS % 3 % (0-10); PLATELET MORPHOLOGY COMMENT NORMAL (NORMAL)
[2024-02-05] MEDS: LASIX IVP ONE (15:02)
[2024-02-05 17:34] VITALS: RESP 20
--- NOTE | 2024-02-05 17:58 | PCM.PROG ---
Progress Note Progress Note for Day of Date of Exam: 02/05/24 Subjective Subjective: PT IS 88 WM, ER ADMISSION ON 01/30/24 AFTER PRESENTING WITH COMPLAINS OF MULTIPLE FALLS THAT DAY, STATES THAT HE WOULD BECOME DIZZY AND FALL. HE REPORTS HITTING FOREHEAD CAUSING BRUISE. HE ALSO SUSTAINED A SKIN TEAR TO LEFT ELBOW AND RIGHT HAND REGION DURING FALLS. ER WORKUP INCLUDED A CT BRAIN WITHOUT CONTRAST THAT DID NOT REVEAL AN INTRACRANIAL ABNORMALITY, CERVICAL SPINE CT THAT DID NOT REVEAL FX OR SUBLUXATION, RIGHT HIP XRAY THATT DID NOT REVEAL A FX OR DISLOCATION, CXR THAT REVEALED HYPERINFLATION. LABS SHOWED KIDNEY DYSFUNCTION- BUN 85/CREATININE 2.07. HE HAS A HISTORY OF RENAL FAILURE. EKG REVEALED VENTRICULAR PACED RHYTHM AND HIS TROPONINS WERE 41.2/39.9 RESPECTIVELY. HE WAS ADMITTED FOR TREATMENT OF DEHYDRATION, COPD EXACERBATION, AND CHF. SINCE ADMISSION, PT HAS BEEN TREATED WITH IV LASIX, IV ABX, IV SOLUMEDROL, AND IV HYDRATION. HE HAD AN EPISODE OF DIARRHEA, SO WE ORDERED STOOL STUDIES- WHICH WERE CLEAR. HE ALSO HAD A CLEAR URINE CULTURE AND SPUTUM CULTURE. CHEST XRAY ON 02/01 SHOWED CARDIOMEGALY WITH LIKELY DEVELOPING MILD PULMONARY EDEMA. CHEST XRAY ON 02/02 SHOWED CARDIOMEGALY WITHOUT CHF, HYPERINFLATION COSISTENT WITH COPD, NO INFILTRATES. ON 02/03, WE OBTAINED A REPEAT CHEST XRAY THAT SHOWED CARDIOMEGALY WITHOUT EVIDENCE OF CHF, COPD, SMALL PLEURAL EFFUSIONS. HE ALSO HAD A CT HEAD ON 02/03 THAT SHOWED NO ACUTE INTRACRANIAL ABNORMALITY. MORNING LABS: HGB 9.8, WBC 10.4, BUN 81/CREATININE 1.92. AM VITALS: 127/60-74-20-97.8-98% ON 3L. Past Medical Family Social History Allergies: Allergies No Known Drug Allergies Allergy (Verified 04/28/17 08:50) Vital Signs and I&O's Vital Signs: Vital Signs Temperature 97.8 F Temperature 97.6 F Pulse Rate [Brachial] 74 Pulse Rate [Brachial] 70 Pulse Rate 87 Respiratory Rate 20 Respiratory Rate 20 Blood Pressure [Left Arm] 127/60 Blood Pressure [Left Arm] 123/58 O2 Sat by Pulse Oximetry 98 O2 Sat by Pulse Oximetry 95 O2 Sat by Pulse Oximetry 96 Intake and Output: Intake & Output 02/02/24 02/03/24 02/04/24 02/05/24 11:59 11:59 11:59 11:59 Intake Total 2342 / 2342 1170 / 1170 2334 / 2334 2250 / 2250 Output Total 552 / 552 820 / 820 1200 / 1200 700 / 700 Balance 1790 / 1790 350 / 350 1134 / 1134 1550 / 1550 Physical Exam Oriented: Normal Eyes: Normal Ear: Normal Nose: Normal Throat: Normal Respiratory: Rhonchi Cardiovascular: Edema; negative Tachycardia or Bradycardia Auscultation: Bowel Sounds: Normal Tenderness: Normal Skin: Decreased Turgur and Bruising (left forehead hematoma) Musculoskeletal: Right, Left, Knee and Back:Lumbar Psychiatric: Normal Mood Description: Calm Speech Pattern: Clear and Appropriate Laboratory and Diagnostics 02/05/24 05:37 02/05/24 05:37 Labs: 02/03/24 17:00 Stool Stool Culture - Final 02/03/24 17:00 Stool - Final 01/31/24 11:20 Sputum - Expectorated Sputum Sputum Culture - Final 01/31/24 11:20 Sputum - Expectorated Sputum - Final 01/31/24 14:57 Urine,Clean Catch Urine Culture - Final Laboratory WBC 10.4 X10^3/uL (3.6-10.0) H 02/05/24 05:37 RBC 2.97 X10^6/uL (4.7-6.0) L 02/05/24 05:37 Hgb 9.8 g/dL (13.5-18.0) L 02/05/24 05:37 Hct 28.8 % (42.0-54.0) L 02/05/24 05:37 MCV 97.2 fL (80.0-100.0) 02/05/24 05:37 MCH 32.9 pg (27.0-34.0) 02/05/24 05:37 MCHC 33.9 g/dL (33.0-35.0) 02/05/24 05:37 RDW 15.3 % (11.6-16.5) 02/05/24 05:37 Plt Count 86 X10^3/uL (150.0-450.0) L 02/05/24 05:37 Plt Count Comment Decreased (ADEQUATE) 02/05/24 05:37 MPV 11.5 fL (7.4-11.0) H 02/05/24 05:37 Neut % (Auto) 94.4 % (42.0-75.0) H 02/05/24 05:37 Lymph % (Auto) 2.0 % (21.0-51.0) L 02/05/24 05:37 [place] % (Auto) 3.6 % (0.0-13.0) 02/05/24 05:37 Eos % (Auto) 0.0 % (0.9-2.9) L 02/05/24 05:37 Baso % (Auto) 0 % (0.2-1.0) L 02/05/24 05:37 Neut # (Auto) 9.9 x10^3/uL (2.2-4.8) H 02/05/24 05:37 Lymph # (Auto) 0.2 X10^3/uL (1.3-2.9) L 02/05/24 05:37 Bond # (Auto) 0.4 x10^3/uL (0.3-0.8) 02/05/24 05:37 Eos # (Auto) 0.0 x10^3/uL (0.0-0.2) 02/05/24 05:37 Baso # (Auto) 0.0 X10^3/uL (0.0-0.1) 02/05/24 05:37 Absolute Nucleated RBC 0.1 /100WBC 02/05/24 05:37 Total Counted 100 02/05/24 05:37 Neutrophils % (Manual) 92 % (39-76) H 02/05/24 05:37 Band Neutrophils % 3 % (0-10) 02/05/24 05:37 Lymphocytes % (Manual) 3 % (13-43) L 02/05/24 05:37 Monocytes % (Manual) 1 % (4-9) L 02/05/24 05:37 Eosinophils % (Manual) 1 % (0-6) 02/05/24 05:37 Plt Morphology Comment Normal (NORMAL) 02/05/24 05:37 RBC Morphology Normal (NORMAL) 02/05/24 05:37 Ovalocytes Slight A 02/04/24 05:24 Acanthocytes (Spur) 1+ 02/04/24 05:24 Sodium 142 mmol/L (136-145) 02/05/24 05:37 Corrected Sodium 143 mmol/L (136-145) 02/05/24 05:37 Potassium 5.1 mmol/L (3.5-5.1) 02/05/24 05:37 Chloride 107 mmol/L (98-107) 02/05/24 05:37 Carbon Dioxide 28.1 mmol/L (21-32) 02/05/24 05:37 BUN 81 mg/dL (7-18) H 02/05/24 05:37 Creatinine 1.92 mg/dL (0.70-1.30) H 02/05/24 05:37 Est GFR (MDRD) Af Amer 43 (>60) L 02/05/24 05:37 Est GFR (MDRD) Non-Af 35 (>60) L 02/05/24 05:37 Glucose 151 mg/dL (65-99) H 02/05/24 05:37 Calcium 8.6 mg/dL (8.5-10.1) 02/05/24 05:37 Corrected Calcium 9.4 mg/dL (8.5-10.1) 02/05/24 05:37 Magnesium 2.1 mg/dL (2.0-2.9) 02/01/24 05:28 Total Bilirubin 0.50 mg/dL (0.2-1.0) 02/05/24 05:37 AST 26 Units/L (15-37) 02/05/24 05:37 ALT 38 Units/L (12-78) 02/05/24 05:37 Alkaline Phosphatase 116 Units/L (46-116) 02/05/24 05:37 Creatine Kinase 77 Units/L (39-308) 01/30/24 18:18 Troponin I High Sens 39.9 ng/L (4.0-60.0) 01/30/24 20:45 B-Natriuretic Peptide 99.7 pg/mL (0-79) H 02/05/24 05:37 Total Protein 6.3 g/dL (6.4-8.2) L 02/05/24 05:37 Albumin 3.0 g/dL (3.4-5.0) L 02/05/24 05:37 Globulin 3.3 g/dL (2.5-4.5) 02/05/24 05:37 Albumin/Globulin Ratio 0.9 Ratio (1.1-2.1) L 02/05/24 05:37 Lipase 38 Units/L (16-77) 01/30/24 18:18 Specimen Type Clean catch urine 01/30/24 20:22 Urine Color Dark yellow (YELLOW) 01/30/24 20:22 Urine Appearance Slightly hazy (CLEAR) 01/30/24 20:22 Urine pH 5.0 (5.0 - 8.0) 01/30/24 20:22 Ur Specific [place] 1.025 (1.000-1.030) 01/30/24 20: Urine Protein 2+ (NEGATIVE) 01/30/24 20:22 Urine Glucose (UA) Negative (NEGATIVE) 01/30/24 20: Urine Ketones Negative (NEGATIVE) 01/30/24 20: Urine Blood Negative (NEGATIVE) 01/30/24 20: Urine Nitrite Negative (NEGATIVE) 01/30/24 20: Urine Bilirubin Negative (NEGATIVE) 01/30/24 20:22 Urine Urobilinogen Normal (NORMAL) 01/30/24 20:22 Ur Leukocyte Esterase Negative (NEGATIVE) 01/30/24 20:22 Urine RBC 0-2 /HPF (0-3) 01/30/24 20:22 Urine WBC None seen /HPF (0-5) 01/30/24 20:22 Ur Squamous Epith Cells Few /HPF (NEGATIVE) 01/30/24 20:22 Amorphous Sediment 1+ /HPF (NEGATIVE) 01/30/24 20:22 Urine Bacteria 1+ /HPF (NEGATIVE) 01/30/24 20:22 Hyaline Casts Few /LPF (NEGATIVE) 01/30/24 20:22 Coarse Granular Casts Few /HPF (NEGATIVE) 01/30/24 20:22 Urine Mucus Few /HPF (NEGATIVE) 01/30/24 20:22 Ur Culture Indicated? No/not indicated 01/30/24 20:22 Stl Occult Blood (IFOB) Positive (NEGATIVE) A 02/03/24 17:00 Stool for White Cells Positive (NEGATIVE) A 02/03/24 17:00 Stl C. diff Tox B Gene Negative (NEGATIVE) 02/03/24 17:00 Stl C. diff [id number] Presumptive negative (NEGATIVE) 02/03/24 17:00 Stool H. pylori Ag Negative (NEGATIVE) 02/03/24 17:00 Digoxin 1.91 ng/mL (0.9-2) 01/30/24 20:45 Theophylline 5.3 ug/mL (10-20) L 01/31/24 05:29 Cryptosporid parvum Ag Negative (NEGATIVE) 02/03/24 17:00 Giardia lamblia Ag Negative (NEGATIVE) 02/03/24 17:00 Resp Viral Panel (PCR) See scanned report 01/31/24 01:05 Plan (1) COPD exacerbation: Status: Acute Plan: CONTINUE IV ABX, SOLUMEDROL, RESPIRATORY THERAPY, IV HYDRATION, WOUND CARE. (2) CHF (congestive heart failure): Status: Acute (3) Hypertension: Status: Chronic (4) Head injury: Status: Acute (5) Atrial fibrillation: Status: Chronic (6) CAD (coronary artery disease): Status: Chronic (7) Weakness: Status: Acute
--- NOTE | 2024-02-05 17:58 | PCM.PROG ---
Progress Note Progress Note for Day of Date of Exam: 02/02/24 Subjective Subjective: PT IS 88 WM, ER ADMISSION ON 01/30/24 AFTER PRESENTING WITH COMPLAINS OF [place]S THAT DAY, STATES THAT HE WOULD BECOME DIZZY AND FALL. HE REPORTS HITTING FOREHEAD CAUSING BRUISE. HE ALSO SUSTAINED A SKIN TEAR TO LEFT ELBOW AND RIGHT HAND REGION DURING FALLS. ER WORKUP INCLUDED A CT BRAIN WITHOUT CONTRAST THAT DID NOT REVEAL AN INTRACRANIAL ABNORMALITY, CERVICAL SPINE CT THAT DID NOT REVEAL FX OR SUBLUXATION, RIGHT HIP XRAY THATT DID NOT REVEAL A FX OR DISLOCATION, CXR THAT REVEALED HYPERINFLATION. LABS SHOWED KIDNEY DYSFUNCTION- BUN 85/CREATININE 2.07. HE HAS A HISTORY OF RENAL FAILURE. EKG REVEALED VENTRICULAR PACED RHYTHM AND HIS TROPONINS WERE 41.2/39.9 RESPECTIVELY. HE WAS ADMITTED FOR TREATMENT OF DEHYDRATION, COPD EXACERBATION, AND CHF. SINCE ADMISSION, PT HAS BEEN TREATED WITH IV LASIX, IV ABX, IV SOLUMEDROL, AND IV HYDRATION. HE HAD AN EPISODE OF DIARRHEA, SO WE ORDERED STOOL STUDIES YESTERDAY. THEY ARE PENDING COLLECTION AT THIS TIME. NO FURTHER REPORTS OF DIARRHEA EPISODES. MORNING LABS: HGB 9.6, WBC 3.7, BUN 77/CREATININE 1.98. AM VITALS: 104/64-70-20-98.5-96% ON 3L. Past Medical Family Social History Allergies: Allergies No Known Drug Allergies Allergy (Verified 04/28/17 08:50) Vital Signs and I&O's Vital Signs: Vital Signs Temperature 97.8 F Temperature 97.6 F Pulse Rate [Brachial] 74 Pulse Rate [Brachial] 70 Pulse Rate 87 Respiratory Rate 20 Respiratory Rate 20 Blood Pressure [Left Arm] 127/60 Blood Pressure [Left Arm] 123/58 O2 Sat by Pulse Oximetry 98 O2 Sat by Pulse Oximetry 95 O2 Sat by Pulse Oximetry 96 Intake and Output: Intake & Output 02/02/24 02/03/24 02/04/24 02/05/24 11:59 11:59 11:59 11:59 Intake Total 2342 / 2342 1170 / 1170 2334 / 2334 2250 / 2250 Output Total 552 / 552 820 / 820 1200 / 1200 700 / 700 Balance 1790 / 1790 350 / 350 1134 / 1134 1550 / 1550 Physical Exam Oriented: Normal Eyes: Normal Ear: Normal Nose: Normal Throat: Normal Respiratory: Rhonchi Cardiovascular: Edema; negative Tachycardia or Bradycardia Auscultation: Bowel Sounds: Normal Tenderness: Normal Skin: Decreased Turgur and Bruising (left forehead hematoma) Musculoskeletal: Right, Left, Knee and Back:Lumbar Psychiatric: Normal Mood Description: Calm Speech Pattern: Clear and Appropriate Laboratory and Diagnostics 02/05/24 05:37 02/05/24 05:37 Labs: 02/03/24 17:00 Stool Stool Culture - Final 02/03/24 17:00 Stool - Final 01/31/24 11:20 Sputum - Expectorated Sputum Sputum Culture - Final 01/31/24 11:20 Sputum - Expectorated Sputum - Final 01/31/24 14:57 Urine,Clean Catch Urine Culture - Final Laboratory WBC 10.4 X10^3/uL (3.6-10.0) H 02/05/24 05:37 RBC 2.97 X10^6/uL (4.7-6.0) L 02/05/24 05:37 Hgb 9.8 g/dL (13.5-18.0) L 02/05/24 05:37 Hct 28.8 % (42.0-54.0) L 02/05/24 05:37 MCV 97.2 fL (80.0-100.0) 02/05/24 05:37 MCH 32.9 pg (27.0-34.0) 02/05/24 05:37 MCHC 33.9 g/dL (33.0-35.0) 02/05/24 05:37 RDW 15.3 % (11.6-16.5) 02/05/24 05:37 Plt Count 86 X10^3/uL (150.0-450.0) L 02/05/24 05:37 Plt Count Comment Decreased (ADEQUATE) 02/05/24 05:37 MPV 11.5 fL (7.4-11.0) H 02/05/24 05:37 Neut % (Auto) 94.4 % (42.0-75.0) H 02/05/24 05:37 Lymph % (Auto) 2.0 % (21.0-51.0) L 02/05/24 05:37 [place] % (Auto) 3.6 % (0.0-13.0) 02/05/24 05:37 Eos % (Auto) 0.0 % (0.9-2.9) L 02/05/24 05:37 Baso % (Auto) 0 % (0.2-1.0) L 02/05/24 05:37 Neut # (Auto) 9.9 x10^3/uL (2.2-4.8) H 02/05/24 05:37 Lymph # (Auto) 0.2 X10^3/uL (1.3-2.9) L 02/05/24 05:37 [place] # (Auto) 0.4 x10^3/uL (0.3-0.8) 02/05/24 05:37 Eos # (Auto) 0.0 x10^3/uL (0.0-0.2) 02/05/24 05:37 Baso # (Auto) 0.0 X10^3/uL (0.0-0.1) 02/05/24 05:37 Absolute Nucleated RBC 0.1 /100WBC 02/05/24 05:37 Total Counted 100 02/05/24 05:37 Neutrophils % (Manual) 92 % (39-76) H 02/05/24 05:37 Band Neutrophils % 3 % (0-10) 02/05/24 05:37 Lymphocytes % (Manual) 3 % (13-43) L 02/05/24 05:37 Monocytes % (Manual) 1 % (4-9) L 02/05/24 05:37 Eosinophils % (Manual) 1 % (0-6) 02/05/24 05:37 Plt Morphology Comment Normal (NORMAL) 02/05/24 05:37 RBC Morphology Normal (NORMAL) 02/05/24 05:37 Ovalocytes Slight A 02/04/24 05:24 Acanthocytes (Spur) 1+ 02/04/24 05:24 Sodium 142 mmol/L (136-145) 02/05/24 05:37 Corrected Sodium 143 mmol/L (136-145) 02/05/24 05:37 Potassium 5.1 mmol/L (3.5-5.1) 02/05/24 05:37 Chloride 107 mmol/L (98-107) 02/05/24 05:37 Carbon Dioxide 28.1 mmol/L (21-32) 02/05/24 05:37 BUN 81 mg/dL (7-18) H 02/05/24 05:37 Creatinine 1.92 mg/dL (0.70-1.30) H 02/05/24 05:37 Est GFR (MDRD) Af Amer 43 (>60) L 02/05/24 05:37 Est GFR (MDRD) Non-Af 35 (>60) L 02/05/24 05:37 Glucose 151 mg/dL (65-99) H 02/05/24 05:37 Calcium 8.6 mg/dL (8.5-10.1) 02/05/24 05:37 Corrected Calcium 9.4 mg/dL (8.5-10.1) 02/05/24 05:37 Magnesium 2.1 mg/dL (2.0-2.9) 02/01/24 05:28 Total Bilirubin 0.50 mg/dL (0.2-1.0) 02/05/24 05:37 AST 26 Units/L (15-37) 02/05/24 05:37 ALT 38 Units/L (12-78) 02/05/24 05:37 Alkaline Phosphatase 116 Units/L (46-116) 02/05/24 05:37 Creatine Kinase 77 Units/L (39-308) 01/30/24 18:18 Troponin I High Sens 39.9 ng/L (4.0-60.0) 01/30/24 20:45 B-Natriuretic Peptide 99.7 pg/mL (0-79) H 02/05/24 05:37 Total Protein 6.3 g/dL (6.4-8.2) L 02/05/24 05:37 Albumin 3.0 g/dL (3.4-5.0) L 02/05/24 05:37 Globulin 3.3 g/dL (2.5-4.5) 02/05/24 05:37 Albumin/Globulin Ratio 0.9 Ratio (1.1-2.1) L 02/05/24 05:37 Lipase 38 Units/L (16-77) 01/30/24 18:18 Specimen Type Clean catch urine 01/30/24 20:22 Urine Color Dark yellow (YELLOW) 01/30/24 20:22 Urine Appearance Slightly hazy (CLEAR) 01/30/24 20:22 Urine pH 5.0 (5.0 - 8.0) 01/30/24 20:22 Ur Specific [place] 1.025 (1.000-1.030) 01/30/24 20:22 Urine Protein 2+ (NEGATIVE) 01/30/24 20:22 Urine Glucose (UA) Negative (NEGATIVE) 01/30/24 20: Urine Ketones Negative (NEGATIVE) 01/30/24 20: Urine Blood Negative (NEGATIVE) 01/30/24 20: Urine Nitrite Negative (NEGATIVE) 01/30/24 20: Urine Bilirubin Negative (NEGATIVE) 01/30/24 20: Urine Urobilinogen Normal (NORMAL) 01/30/24 20:22 Ur Leukocyte Esterase Negative (NEGATIVE) 01/30/24 20: Urine RBC 0-2 /HPF (0-3) 01/30/24 20:22 Urine WBC None seen /HPF (0-5) 01/30/24 20:22 Ur Squamous Epith Cells Few /HPF (NEGATIVE) 01/30/24 20: Amorphous Sediment 1+ /HPF (NEGATIVE) 01/30/24 20:22 Urine Bacteria 1+ /HPF (NEGATIVE) 01/30/24 20: Hyaline Casts Few /LPF (NEGATIVE) 01/30/24 20: Coarse Granular Casts Few /HPF (NEGATIVE) 01/30/24 20: Urine Mucus Few /HPF (NEGATIVE) 01/30/24 20:22 Ur Culture Indicated? No/not indicated 01/30/24 20:22 Stl Occult Blood (IFOB) Positive (NEGATIVE) A 02/03/24 17:00 Stool for White Cells Positive (NEGATIVE) A 02/03/24 17:00 Stl C. diff Tox B Gene Negative (NEGATIVE) 02/03/24 17:00 Stl C. diff [id number] Presumptive negative (NEGATIVE) 02/03/24 17:00 Stool H. pylori Ag Negative (NEGATIVE) 02/03/24 17:00 Digoxin 1.91 ng/mL (0.9-2) 01/30/24 20:45 Theophylline 5.3 ug/mL (10-20) L 01/31/24 05:29 Cryptosporid parvum Ag Negative (NEGATIVE) 02/03/24 17:00 Giardia lamblia Ag Negative (NEGATIVE) 02/03/24 17:00 Resp Viral Panel (PCR) See scanned report 01/31/24 01:05 Plan (1) COPD exacerbation: Status: Acute Plan: OBTAIN CHEST XRAY. CONTINUE IV ABX, SOLUMEDROL, RESPIRATORY THERAPY, IV HYDRATION, WOUND CARE. (2) CHF (congestive heart failure): Status: Acute (3) Hypertension: Status: Chronic (4) Head injury: Status: Acute (5) Atrial fibrillation: Status: Chronic (6) CAD (coronary artery disease): Status: Chronic (7) Weakness: Status: Acute
[2024-02-06 00:39] VITALS: PULSE 70
[2024-02-06 05:59] LABS: BASOPHILS % (AUTO) 0.1 % (0.2-1.0); HEMATOCRIT 28.1 % (42.0-54.0); HEMOGLOBIN 9.5 g/dL (13.5-18.0); LYMPHOCYTES # (AUTO) 0.1 X10^3/uL (1.3-2.9); LYMPHOCYTES % (AUTO) 1.1 % (21.0-51.0); MEAN CORPUSCULAR HEMOGLOBIN 32.7 pg (27.0-34.0); MEAN CORPUSCULAR HGB CONC 33.8 g/dL (33.0-35.0); MEAN CORPUSCULAR VOLUME 96.8 fL (80.0-100.0); MEAN PLATELET VOLUME 11.3 fL (7.4-11.0); MONOCYTES # (AUTO) 0.2 x10^3/uL (0.3-0.8); MONOCYTES % (AUTO) 2.4 % (0.0-13.0); NEUTROPHILS # (AUTO) 8.2 x10^3/uL (2.2-4.8); NEUTROPHILS % (AUTO) 96.4 % (42.0-75.0); PLATELET COUNT 78 X10^3/uL (150.0-450.0); RED BLOOD COUNT 2.91 X10^6/uL (4.7-6.0); RED CELL DISTRIBUTION WIDTH 14.7 % (11.6-16.5); WHITE BLOOD COUNT 8.5 X10^3/uL (3.6-10.0)
[2024-02-06 06:10] LABS: CALCIUM 8.5 mg/dL (8.5-10.1); CARBON DIOXIDE 28.9 mmol/L (21-32); COR CA(FOR HYPOALB) 9.3 mg/dL (8.5-10.1); CREATININE 1.83 mg/dL (0.70-1.30); POTASSIUM 4.8 mmol/L (3.5-5.1); TOTAL PROTEIN 6.2 g/dL (6.4-8.2)
[2024-02-06 06:37] LABS: PLATELET MORPHOLOGY COMMENT NORMAL (NORMAL)
[2024-02-06 08:08] VITALS: BP 137/72; TEMP 97.8; O2SAT 98
[2024-02-06] MEDS: LASIX IVP ONE (09:38)
[2024-02-06] MEDS: FLOMAX PO SCH (09:38)
[2024-02-06] MEDS: SOLU-Medrol 40 MG VIAL IVP ONE (10:09)
== END 2024-02-06 11:15 | disposition home health service (06) ==
LOC: SUPCPDRO → MED/SURG 18:05 → ER 18:05 → MED/SURG 01-31 00:59
PROVIDERS: ADMIT Internal Medicine; ATTEND Internal Medicine
DX: R53.1 Weakness; S00.83XA Contusion of other part of head, initial encounter; S70.11XA Contusion of right thigh, initial encounter; R94.31 Abnormal electrocardiogram [ECG] [EKG]; R41.82 Altered mental status, unspecified; I25.10 Atherosclerotic heart disease of native coronary artery without angina pectoris; N17.8 Other acute kidney failure; J90 Pleural effusion, not elsewhere classified; E86.0 Dehydration; J44.1 Chronic obstructive pulmonary disease with (acute) exacerbation; E78.5 Hyperlipidemia, unspecified; I11.0 Hypertensive heart disease with heart failure; I50.9 Heart failure, unspecified; R42 Dizziness and giddiness; R26.89 Other abnormalities of gait and mobility; W18.39XA Other fall on same level, initial encounter; E87.0 Hyperosmolality and hypernatremia; B34.8 Other viral infections of unspecified site; Z79.01 Long term (current) use of anticoagulants; I48.20 Chronic atrial fibrillation, unspecified; R29.6 Repeated falls; R06.02 Shortness of breath; S40.022A Contusion of left upper arm, initial encounter; J18.0 Bronchopneumonia, unspecified organism